=== PATIENT | male | born 1970 | race Caucasian/White ===

== ENCOUNTER 2022-11-10 07:11 | Outpatient (OUT) | payer OTHER, SELFPAY ==
[2022-11-10 07:42] LABS: Basophils Percent Auto 0.6 % (0.2-2.0); Eosinophils Absolute Auto 0.3 10^3/uL (0.0-0.7); Eosinophils Percent Auto 3.9 % (0.9-7.0); Hematocrit 41.4 % (42.0-54.0); Immature Granulocytes Abs Auto 0.02 10^3/uL (0.00-0.03); Immature Granulocytes Pct Auto 0.3 % (0.0-0.5); Lymphocytes Absolute Auto 1.7 10^3/uL (1.2-3.8); Mean Corpuscular HGB Conc 33.8 g/dL (29.9-35.2); Mean Corpuscular Hemoglobin 30.6 pg (25.9-34.0); Mean Corpuscular Volume 90.6 fL (80.0-94.0); Mean Platelet Volume 9.8 fL (9.5-13.5); Monocytes Absolute Auto 0.6 10^3/uL (0.3-0.8); Neutrophils Absolute Auto 4.1 10^3/uL (1.4-6.5); Neutrophils Percent Auto 61.2 % (43.0-75.0); Platelet Count 246 10^3/uL (150-450); Red Blood Count 4.57 10^6/uL (4.70-6.10); Red Cell Distribution Width 12.4 % (11.0-15.0); White Blood Count 6.6 10^3/uL (4.0-11.0)
[2022-11-10 09:06] LABS: Prostate Specific Antigen Scrn 0.44 ng/mL (<=4.00)
[2022-11-10 09:23] LABS: Alanine Aminotransferase 41 U/L (16-63); Albumin Globulin Ratio 1.1; Albumin Level 3.8 g/dL (3.4-5.0); Alkaline Phosphatase 60 U/L (46-116); Anion Gap 6.6; Aspartate Amino Transferase 20 U/L (15-37); BUN Creatinine Ratio 13.7; Bilirubin Total 0.4 mg/dL (0.2-1.0); Carbon Dioxide 29.7 mmol/L (21.0-32.0); Chloride 104 mmol/L (98-107); Chol HDL Ratio 2.3; Cholesterol 173 mg/dL (<=200); Estimated GFR (African America >60 (>=60); Estimated GFR (Non-African Ame >60 (>=60); Free T3 2.84 pg/mL (2.18-3.98); Globulin 3.6 g/dL; Glucose 108 mg/dL (74-106); HDL Cholesterol 74 mg/dL (40-60); Potassium 4.3 mmol/L (3.5-5.1); Sodium 136 mmol/L (136-145); Thyroid Stimulating Hormone 2.713 uIU/mL (0.358-3.740); Total Protein 7.4 g/dL (6.4-8.2); Triglycerides 159 mg/dL (<=150); VLDL CHOLESTEROL 31.8 mg/dL
[2022-11-10 09:31] LABS: Estimated Average Glucose 111 mg/dL; Glycohemoglobin A1C 5.5 % (4.5-6.2)
== END 2022-11-10 07:12 | disposition home or self-care (01) ==
LOC: LAB 07:15
PROVIDERS: PCP Family Medicine; Visit Provider Family Medicine
DX: Z00.00 Encounter for general adult medical examination without abnormal findings (principal); Z12.5 Encounter for screening for malignant neoplasm of prostate
CPT/HCPCS: 36415; 80053; 80061; 83036; 84436; 84443; 84481; 85025; G0103

== ENCOUNTER 2023-03-04 07:49 | Outpatient (RCR) | payer OTHER, SELFPAY | END 2023-05-03 09:00 | disposition home or self-care (01) | LOC: PT 07:49 | PROVIDERS: PCP Family Medicine; Visit Provider Orthopaedic Surgery Orthopaedic Trauma | DX: S83.242D Other tear of medial meniscus, current injury, left knee, subsequent encounter (principal); M23.92 Unspecified internal derangement of left knee; M25.562 Pain in left knee; R26.9 Unspecified abnormalities of gait and mobility; R26.89 Other abnormalities of gait and mobility | CPT/HCPCS: 97110; 97161 ==

== ENCOUNTER 2023-05-04 09:25 | Outpatient (RCR) | payer OTHER, SELFPAY | END 2023-05-05 12:42 | disposition home or self-care (01) | LOC: PT 09:25 | PROVIDERS: PCP Family Medicine; Visit Provider Orthopaedic Surgery Orthopaedic Trauma | DX: Z53.8 Procedure and treatment not carried out for other reasons (principal) ==

== ENCOUNTER 2023-06-04 07:05 | Outpatient (RCR) | payer OTHER, SELFPAY | END 2023-06-10 11:41 | disposition home or self-care (01) | LOC: PT 07:05 | PROVIDERS: PCP Family Medicine; Visit Provider Orthopaedic Surgery Orthopaedic Trauma | DX: S83.242D Other tear of medial meniscus, current injury, left knee, subsequent encounter (principal); M23.92 Unspecified internal derangement of left knee; M25.562 Pain in left knee; Z98.890 Other specified postprocedural states | CPT/HCPCS: 97110; 97161 ==

== ENCOUNTER 2024-01-05 08:55 | Outpatient (OUT) | payer OTHER, SELFPAY ==
--- OUTSIDE RECORDS SUMMARY | 2024-01-05 09:17 | XMS_ITS | CCD ---
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 Name Role Phone DR IGNACIO LAGUNAS Consulting Unavailable GET, DR JAY Admitting Unavailable GET, DR JAY Attending Unavailable GET, DR JAY Primary Care Unavailable GET, DR JAY Consulting Unavailable REINKANDI, DR KIEL Wing Consulting Unavailluz marina WAITE, DR JEANNE Nam Consulting Unavailable TORRES, KONSTANTIN Consulting Unavailable FAWWADSHAIKH Celine Consulting Unavailable FALVO, SUJATHA Consulting Unavailable GET, DR JAY Admitting Unavailable GET, DR JAY Attending Unavailable GET, DR JAY Consulting Unavailable GET, DR JAY Primary Care Unavailable GET, DR JAY Admitting Unavailable GET, DR JAY Attending Unavailable GET, DR JAY Consulting Unavailable GET, DR JAY Primary Care Unavailable Bruce Galvan Unavailable MD Mitsy Wells Primary Care Provider [phone] DO Bruce Galvan Attending Provider Montse Rosario Unavailable MD Misty Wells Primary Care Provider [phone] DO Bruce Galvan Attending Provider [phone] Bruce Galvan Admitting Unavailable Bruce Galvan Attending Unavailable Misty Wells Primary Care Unavailable Bruce Galvan Admitting Unavailable Bruce Galvan Attending Unavailable Misty Wells Primary Care Unavailable Bruce Galvan Admitting Unavailable Bruce Galvan Attending Unavailable Misty Wells Primary Care Unavailable Bruce Galvan Attending Unavailable Bruce Galvan Admitting Unavailable Misty Wells Primary Care Unavailable Asad CARBAJAL Attending Unavailable Aranza BASILIO Attending Unavailable Aranza BASILIO Attending Unavailable Asad CARBAJAL Attending Unavailable Medications Current Medications Medication Drug Class(es) Dates Sig (Normalized) Sig (Original) allopurinol 100 mg oral tablet (8 sources) Xanthine Oxidase Inhibitor Start: 05-13-2023 take 100 mg by mouth once daily in the morning Allopurinol Active 100 MG PO Every morning May 13, 2023 1:00am aspirin 325 mg oral tablet (8 sources) Platelet Aggregation Inhibitor, Nonsteroidal Anti-inflammatory Drug Start: 05-13-2023 take 325 mg by mouth once daily in the morning Aspirin Active 325 MG PO Every morning May 13, 2023 1:00am take 1 tablet by jennifer th every twenty-four hours Aspirin 81 81 MG 1 tablet Orally Once a day Active take 1 tablet by mouth once zhanna y Aspirin 81 81 MG 1 tablet Orally Once a day Active lisinopril 20 mg oral tablet (8 sources) Angiotensin Converting Enzyme Inhibitor Start: 05-13-2023 take 20 mg by mouth once daily in the morning Lisinopril Active 20 MG PO Every morning May 13, 2023 1:00am metoprolol tartrate 50 mg oral tablet (8 sources) beta-Adrenergic Umair Start: 05-13-2023 take 50 mg by mouth twice daily Metoprolol Tartrate Active 50 MG PO Twice daily May 13, 2023 1:00am At-Txp-Qropj-K1-Ly copen-Lutein (Centrum Silver Men) 033-95-191-300 mcg Tablet (3 sources) Start: 05-13-2023 take 1 tablet by mouth once daily Zr-Sic-Orevq-K1-L ycopen-Lutein (Centrum Silver Men) [phone] mcg Tablet Active 1 TAB PO Daily May 13, 2023 1:00am Start: 05-13-2023 take 1 tablet by jennifer th once daily Bx-Qaj-Szttm-Y9-Jpphuaw-Sunrfd (Centrum Silver Men) [phone] mcg Tablet Active 1 TAB PO Daily May 13, 2023 12:00am oxyCODONE hydrochloride 5 mg oral capsule (2 sources) Opioid Agonist Start: 05-21-2023 take 5 mg by mouth every four to six hours Oxycodone Active 5 MG PO EVERY 4-6 HOURS 20 7 May 21, 2023 simvastatin 20 mg oral tablet (8 sources) HMG-CoA Reductase Inhibitor Start: 05-13-2023 take 20 mg by mouth once daily in the morning Simvastatin Active 20 MG PO Every morning May 13, 2023 1:00am Completed/Discontinued Medications Medication Drug Class(es) Dates Sig (Normalized) Sig (Original) triamcinolone acetonide 40 mg/ml injectable suspension (4 sources) Corticosteroid Start: 03-02-2023 Kenalog-40 30 Feb, 2023 40 mg Problems Active Problems Problem Classification Problem Date Documented Date Episodic/Chronic Essential hypertension (1 source) Essential (primary) hypertension; Translations: [ESSENTIAL PRIMARY HYPERTENSION] Onset: 10-17-2021 Chronic Headache; including migraine (1 source) Migraine, unspecified, not intractable, without status migrainosus; Translations: [MIGRAINE UNS NOT INTRACT W/O SM] Onset: 10-17-2021 Chronic Joint disorders and dislocations; trauma-related (10 sources) Derangement of left knee; Translations: [Unspecified internal derangement of left knee] Chronic Joint disorders and dislocations; trauma-related (7 sources) Other tear of medial meniscus, current injury, left knee, subsequent encounter; Translations: [Tear of medial meniscus of knee] Episodic Other aftercare (1 source) Encounter for removal of sutures Episodic Residual codes; unclassified (5 sources) Other specified postprocedural states; Translations: [Other postprocedural status] Onset: 05-21-2023 Episodic Residual codes; unclassified (1 source) Postprocedural state finding; Translations: [Other specified postprocedural states] 06-29-2023 Episodic Substance-related disorders (1 source) Nicotine dependence, chewing tobacco, uncomplicated; Translations: [NICOTINE DEPEND CHEW TOBACCO UNCOMP] Onset: 10-17-2021 Chronic Unclassified (1 source) ALCOHOL ABUSE WITHDRAWAL UNSPCIFIED; Translations: [ALCOHOL ABUSE WITHDRAWAL UNSPCIFIED] Onset: 10-17-2021 Unclassified (3 sources) CONTACT W/AND (SUSP) EXPOS COVID-19; Translations: [CONTACT W/AND (SUSP) EXPOS COVID-19] Onset: 05-16-2021 Unclassified (1 source) Other tear of medial meniscus, current injury, left knee, initial encounter; Translations: [Other tear of medial meniscus, current injury, left knee, initial encounter] Onset: 05-21-2023 Unclassified (1 source) Encounter for preprocedural laboratory examination; Translations: [Encounter for preprocedural laboratory examination] Onset: 05-13-2023 Unclassified (1 source) Unspecified internal derangement of left knee; Translations: [Unspecified internal derangement of left knee] Onset: 02-26-2023 Unclassified (1 source) Pain in left knee; Translations: [Pain in left knee] Onset: 02-23-2023 Viral infection (4 sources) COVID-19; Translations: [COVID-19] Onset: 04-11-2021 Past or Other Problems Problem Classification Problem Date Documented Da te Episodic/Chronic Conditions associated with dizziness or vertigo (4 sources) Dizziness and giddiness; Translations: [Labyrinthitis, unspecified ear] Onset: 10-13-2021 Episodic E Codes: Unspecified (1 source) Presence of alcohol in blood, level not specified; Translations: [PRESENCE ALCOHOL BLOOD LVL NOT SPEC] Onset: 10-17-2021 Episodic Immunizations and screening for infectious disease (1 source) Encounter for immunization; Translations: [ENCOUNTER FOR IMMUNIZATION] Onset: 04-16-2021 Episodic Malaise and fatigue (1 source) Weakness; Translations: [WEAKNESS] Onset: 10-17-2021 Episodic Other aftercare (1 source) Other [place] (current) drug therapy; Translations: [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] Onset: 10-17-2021 Episodic Other non-traumatic joint disorders (5 sources) Pain in left knee; Translations: [Pain in left knee] Onset: 02-26-2023 Episodic Other upper respiratory infections (1 source) Acute sinusitis, unspecified; Translations: [ACUTE SINUSITIS UNSPECIFIED] Onset: 05-16-2021 Episodic Unclassified (1 source) CONTACT W/AND (SUSP) EXPOS COVID-19; Translations: [CONTACT W/AND (SUSP) EXPOS COVID-19] Onset: 04-09-2021 Results Test Name Value Interpretation Reference Range Facility Registrationon 08-18-2023 Registration [id number] 0#1.00TIFF [facility] Registration [id number] 3#1.00TIFF [facility] In office Testingon 08-17-19 24 In office Testing [id number] #1.00TIFF Normal [facility] Alanine aminotransferase [En zymatic activity/volume] in Serum or PlasmaOrdered By: Bruce Galvan on 05-13-2023 ALT [Catalytic activity/Vol] 35 U/L 7-52 [facility] Albumin [Mass/volume] in Ser um or Plasma by Bromocresol green (BCG) dye binding methoOrdered By: Bruce Galvan on 05-13-2023 Albumin BCG dye [Mass/Vol] 4.6 g/dL 3.5-5.7 [facility] Alkaline phosphatase [Enzyma tic activity/volume] in Serum or PlasmaOrdered By: Bruce Galvan on 05-13-2023 ALP [Catalytic activity/Vol] 61 U/L 34-104 [facility] Aspartate aminotransferase [ Enzymatic activity/volume] in Serum or PlasmaOrdered By: Bruce Galvan on 05-13-2023 AST [Catalytic activity/Vol] 20 U/L 13-39 [facility] Basophils Auto (Bld) [#/Vol] Ordered By: Bruce Galvan on 05-13-2023 Basophils (Bld) [#/Vol] 0.0 10*3/uL 0.0-0.2 [facility] Basophils/100 WBC Auto (Bld) Ordered By: Bruce Galvan on 05-13-2023 Basophils/100 WBC (Bld) 0.4 % . [facility] Bilirubin.total [Mass/volume ] in Serum or PlasmaOrdered By: Bruce Galvan on 05-13-2023 Bilirubin [Mass/Vol] 0.5 mg/dL 0.3-1.0 [facility] CMP with reflex to A1Con Albumin [Mass/Vol] 4.6 g/dL Normal 3.5-5.7 [facility] Comment on above: Performed By: #### C BC, CMP wRFX A1C #### [address] Albumin/Globulin [Mass ratio] 1.8 {ratio} Normal [facility] Comment on above: Performed By: #### C BC, CMP wRFX A1C #### [facility] [address] ALP [Catalytic activity/Vol] 61 U/L Normal 34-104 [facility] Comment on above: Result Comment: PERF ORMED BY: [place] [address] PATHOLOGIST FISHER SPEAR LARRY PIZANO M.D. Performed By: #### C BC, CMP wRFX A1C #### [facility] [address] ALT [Catalytic activity/Vol] 35 U/L Normal 7-52 [facility] Comment on above: Performed By: #### C BC, CMP wRFX A1C #### [address] Anion gap [Moles/Vol] 9.3 mmol/L Normal 6.0-15.0 [facility] Comment on above: Performed By: #### C BC, CMP wRFX A1C #### [address] AST [Catalytic activity/Vol] 20 U/L Normal 13-39 [facility] Comment on above: Performed By: #### C BC, CMP wRFX A1C #### [address] Bilirubin [Mass/Vol] 0.5 mg/dL Normal 0.3-1.0 [facility] Comment on above: Performed By: #### C BC, CMP wRFX A1C #### [place] [address] [place] Calcium [Mass/Vol] 9.7 mg/dL Normal 8.6-10.3 [facility] Comment on above: Performed By: #### C BC, CMP wRFX A1C #### [address] Chloride [Moles/Vol] 105 mmol/L Normal 98-107 [facility] Comment on above: Performed By: #### C BC, CMP wRFX A1C #### [address] [place] [address] [place] CO2 [Moles/Vol] 30.0 mmol/L Normal 21.0-31.0 [facility] Comment on above: Performed By: #### C BC, CMP wRFX A1C #### [facility] [address] [place] [address] [place] Creatinine [Mass/Vol] 1.07 mg/dL Normal 0.70-1.30 [facility] Comment on above: Performed By: #### C BC, CMP wRFX A1C #### [facility] [address] [place] [address] [place] GFR/1.73 sq M.predicted MDRD (S/P/Bld) [Vol rate/Area] mL/min/{1.73_m2} Normal [facility] Comment on above: Performed By: #### C BC, CMP wRFX A1C #### [facility] [address] [place] [address] [place] Globulin (S) [Mass/Vol] 2.5 g/dL Normal [facility] Comment on above: Performed By: #### C BC, CMP wRFX A1C #### [facility] [address] [place] [address] [place] Glucose [Mass/Vol] 97 mg/dL Normal 70-100 [facility] Comment on above: Performed By: #### C BC, CMP wRFX A1C #### [facility] [address] [place] [address] [place] Potassium [Moles/Vol] 4.3 mmol/L Normal 3.5-5.1 [facility] Comment on above: Performed By: #### C BC, CMP wRFX A1C #### [facility] [address] [place] [address] [place] Protein [Mass/Vol] 7.1 g/dL Normal 6.4-8.9 [facility] Comment on above: Performed By: #### C BC, CMP wRFX A1C #### [facility] [address] [place] [address] [place] Sodium [Moles/Vol] 140 mmol/L Normal 136-145 [facility] Comment on above: Performed By: #### C BC, CMP wRFX A1C #### [facility] [address] Urea nitrogen [Mass/Vol] 15 mg/dL Normal 7-25 [facility] Comment on above: Performed By: #### C BC, CMP wRFX A1C #### [facility] [address] [place] [address] [place] Calcium [Mass/volume] in Ser um or PlasmaOrdered By: Bruce Galvan on 05-13-2023 Calcium [Mass/Vol] 9.7 mg/dL 8.6-10.3 [facility] Carbon dioxide, total [Moles /volume] in Serum or PlasmaOrdered By: Bruce Galvan on 05-13-2023 CO2 [Moles/Vol] 30.0 mmol/L 21.0-31.0 [facility] Chloride [Moles/volume] in S sara or PlasmaOrdered By: Bruce Galvan on 05-13-2023 Chloride [Moles/Vol] 105 mmol/L 98-107 [facility] Complete Blood Count Auto Di ffon 05-13-2023 Basophils (Bld) [#/Vol] 0.0 10*3/uL Normal 0.0-0.2 [facility] Comment on above: Result Comment: PERF ORMED BY: [place] [address] PATHOLOGIST FISHER SPEAR LARRY PIZANO M.D. Performed By: #### C BC, CMP wRFX A1C #### [facility] [address] [place] [address] [place] Basophils/100 WBC (Bld) 0.4 % Normal . [facility] Comment on above: Performed By: #### C BC, CMP wRFX A1C #### [facility] [address] [place] [address] [place] Eosinophils (Bld) [#/Vol] 0.2 10*3/uL Normal 0.0-0.45 [facility] Comment on above: Performed By: #### C BC, CMP wRFX A1C #### [facility] [address] [place] [address] [place] Eosinophils/100 WBC (Bld) 3.7 % Normal . [facility] Comment on above: Performed By: #### C BC, CMP wRFX A1C #### [facility] [address] Erythrocyte distribution width (RBC) [Ratio] 13.2 % Normal 12.0-14.8 [facility] Comment on above: Performed By: #### C BC, CMP wRFX A1C #### [facility] [address] Hematocrit (Bld) [Volume fraction] 41.2 % Normal 38.8-50.0 [facility] Comment on above: Performed By: #### C BC, CMP wRFX A1C #### [facility] [address] Hemoglobin (Bld) [Mass/Vol] 14.1 g/dL Normal 13.0-17.0 [facility] Comment on above: Performed By: #### C BC, CMP wRFX A1C #### [facility] [address] [place] [address] [place] Lymphocytes (Bld) [#/Vol] 1.6 10*3/uL Normal 1.00-4.8 [facility] Comment on above: Performed By: #### C BC, CMP wRFX A1C #### [facility] [address] [place] [address] [place] Lymphocytes/100 WBC (Bld) 24.8 % Normal . [facility] Comment on above: Performed By: #### C BC, CMP wRFX A1C #### [facility] [address] [place] [address] [place] MCH (RBC) [Entitic mass] 31.1 pg Normal 27.5-35.2 [facility] Comment on above: Performed By: #### C BC, CMP wRFX A1C #### [facility] [address] MCV (RBC) [Entitic vol] 90.8 fL Normal 83.5-101 [facility] Comment on above: Performed By: #### C BC, CMP wRFX A1C #### [facility] [address] Mean Corpuscular HGB Conc 34.3 g/dL Normal 32.5-35.6 [facility] Comment on above: Performed By: #### C BC, CMP wRFX A1C #### [facility] [address] Monocytes (Bld) [#/Vol] 0.6 10*3/uL Normal 0.0-0.8 [facility] Comment on above: Performed By: #### C BC, CMP wRFX A1C #### [facility] [address] Monocytes/100 WBC (Bld) 9.1 % Normal . [facility] Comment on above: Performed By: #### C BC, CMP wRFX A1C #### [facility] [address] [place] [address] [place] Neutrophils (Bld) [#/Vol] 4.0 10*3/uL Normal 1.8-7.7 [facility] Comment on above: Performed By: #### C BC, CMP wRFX A1C #### [place] [address] [place] Neutrophils/100 WBC (Bld) 62.0 % Normal . [facility] Comment on above: Performed By: #### C BC, CMP wRFX A1C #### [place] [address] [place] NRBC% 0.1 /100{WBC} Normal 0-0.5 [facility] Comment on above: Performed By: #### C BC, CMP wRFX A1C #### [facility] [address] [place] [address] [place] Platelet mean volume (Bld) [Entitic vol] 8.7 fL Normal 6.6-10.1 [facility] Comment on above: Performed By: #### C BC, CMP wRFX A1C #### [facility] [address] [place] [address] [place] Platelets (Bld) [#/Vol] 266 10*3/uL Normal 150-450 [facility] Comment on above: Performed By: #### C BC, CMP wRFX A1C #### [facility] [address] RBC (Bld) [#/Vol] 4.54 10*6/uL Normal 3.90-5.60 [facility] Comment on above: Performed By: #### C BC, CMP wRFX A1C #### [facility] [address] [place] [id number] [facility] WBC (Bld) [#/Vol] 6.4 10*3/uL Normal 4.1-10.5 [facility] Comment on above: Performed By: #### C BC, CMP wRFX A1C #### [facility] [address] Creatinine [Mass/volume] in Serum or PlasmaOrdered By: Bruce Galvan on 05-13-2023 Creatinine [Mass/Vol] 1.07 mg/dL 0.70-1.30 [facility] ECG 12 lead ECGon 05-13-2023 ECG 12 lead ECG [facility] Main [facility] [address] [place] [address] Electrocardiograph Report Signed Patient: Johnathon Ludwig MR#: [id number] : 1970 Acct:[id number] Age/Sex: 52 / M ADM Date: 05/13/23 Loc: Room: Type: [facility] Attending Dr: Bruce Galvan DO Ordering Provider: Bruce Galvan DO Date of Service: 05/13/2302/24/1023 ECG/ECG 12 lead ECG: Pre op Copies to: Test Reason : Blood Pressure : / mmHG Vent. Rate : 076 BPM Atrial Rate : 076 BPM P-R Int : 144 ms QRS Dur : 094 ms QT Int : 390 ms P-R-T Axes : 047 039 023 degrees QTc Int : 438 ms Normal sinus rhythm Normal ECG No previous ECGs available Confirmed by Maurice Cardoza ([id number]) on 05/14/2023 8:53:06 AM Referred By: GET GALVAN Electronically Signed By:Maurice Cardoza Transcribed By: MUS Signed By Maurcie Cardoza MD 05/14/23 0853 Normal [facility] Eosinophils Auto (Bld) [#/Vo l]Ordered By: Bruce Galvan on 05-13-2023 Eosinophils (Bld) [#/Vol] 0.2 10*3/uL 0.0-0.45 [facility] Eosinophils/100 WBC Auto (Bl d)Ordered By: Bruce Galvan on 05-13-2023 Eosinophils/100 WBC (Bld) 3.7 % . [facility] Erythrocyte distribution wid th Auto (RBC) [Ratio]Ordered By: Bruce Galvan on 05-13-2023 Erythrocyte distribution width (RBC) [Ratio] 13.2 % 12.0-14.8 [facility] Globulin Calc (S) [Mass/Vol] Ordered By: Bruce Galvan on 05-13-2023 Globulin (S) [Mass/Vol] 2.5 g/dL [facility] Glucose [Mass/volume] in Ser um or PlasmaOrdered By: Bruce Galvan on 05-13-2023 Glucose [Mass/Vol] 97 mg/dL 70-100 [facility] Hematocrit Auto (Bld) [Volum e fraction]Ordered By: Bruce Galvan on 05-13-2023 Hematocrit (Bld) [Volume fraction] 41.2 % 38.8-50.0 [facility] Hemoglobin [Mass/volume] in BloodOrdered By: Bruce Galvan on 05-13-2023 Hemoglobin (Bld) [Mass/Vol] 14.1 g/dL 13.0-17.0 [facility] Leukocytes [#/volume] correc melanie for nucleated erythrocytes in Blood by Automated counOrdered By: Bruce Galvan on 05-13-2023 WBC corrected for nucl RBC Auto (Bld) [#/Vol] 6.4 10*3/uL 4.1-10.5 [facility] Lymphocytes Auto (Bld) [#/Vo l]Ordered By: Bruce Galvan on 05-13-2023 Lymphocytes (Bld) [#/Vol] 1.6 10*3/uL 1.00-4.8 [facility] Lymphocytes/100 WBC Auto (Bl d)Ordered By: Bruce Galvan on 05-13-2023 Lymphocytes/100 WBC (Bld) 24.8 % . [facility] MCH Auto (RBC) [Entitic mass ]Ordered By: Bruce Galvan on 05-13-2023 MCH (RBC) [Entitic mass] 31.1 pg 27.5-35.2 [facility] MCHC Auto (RBC) [Mass/Vol]Or dered By: Bruce Galvan on 05-13-2023 MCHC (RBC) [Mass/Vol] 34.3 g/dL 32.5-35.6 [facility] MCV Auto (RBC) [Entitic vol] Ordered By: Bruce Galvan on 05-13-2023 MCV (RBC) [Entitic vol] 90.8 fL 83.5-101 [facility] Monocytes Auto (Bld) [#/Vol] Ordered By: Bruce Galvan on 05-13-2023 Monocytes (Bld) [#/Vol] 0.6 10*3/uL 0.0-0.8 [facility] Monocytes/100 WBC Auto (Bld) Ordered By: Bruce Galvan on 05-13-2023 Monocytes/100 WBC (Bld) 9.1 % . [facility] Neutrophils Auto (Bld) [#/Vo l]Ordered By: Bruce Galvan on 05-13-2023 Neutrophils (Bld) [#/Vol] 4.0 10*3/uL 1.8-7.7 [facility] Neutrophils/100 WBC Auto (Bl d)Ordered By: Bruce Galvan on 05-13-2023 Neutrophils/100 WBC (Bld) 62.0 % . [facility] No Panel InformationOrdered By: Bruce Galvan on 05-13-2023 Estimated GFR (CKD-EPI) > 60.0 mL/Min [facility] Creatinine Clearance (Chem N/A [facility] Nucleated erythrocytes [Pres ence] in Blood by Automated countOrdered By: Bruce Galvan on 05-13-2023 Nucleated RBC Auto Ql (Bld) 0.1 /100{WBC} 0-0.5 [facility] Platelet mean volume Auto (B ld) [Entitic vol]Ordered By: Bruce Galvan on 05-13-2023 Platelet mean volume (Bld) [Entitic vol] 8.7 fL 6.6-10.1 [facility] Platelets Auto (Bld) [#/Vol] Ordered By: Bruce Galvan on 05-13-2023 Platelets (Bld) [#/Vol] 266 10*3/uL 150-450 [facility] Potassium [Moles/volume] in Serum or PlasmaOrdered By: Bruce Galvan on 05-13-2023 Potassium [Moles/Vol] 4.3 mmol/L 3.5-5.1 [facility] Protein [Mass/volume] in Ser um or PlasmaOrdered By: Bruce Galvan on 05-13-2023 Protein [Mass/Vol] 7.1 g/dL 6.4-8.9 [facility] RBC Auto (Bld) [#/Vol]Ordere d By: Bruce Galvan on 05-13-2023 RBC (Bld) [#/Vol] 4.54 10*6/uL 3.90-5.60 [facility] Serum or plasma albumin/glob ulin mass ratioOrdered By: Bruce Galvan on 05-13-2023 Albumin/Globulin [Mass ratio] 1.8 {ratio} [facility] Serum or plasma anion gap de terminationOrdered By: Bruce Galvan on 05-13-2023 Anion gap [Moles/Vol] 9.3 mmol/L 6.0-15.0 [facility] Sodium [Moles/volume] in Ser um or PlasmaOrdered By: Bruce Galvan on 05-13-2023 Sodium [Moles/Vol] 140 mmol/L 136-145 [facility] Urea nitrogen [Mass/volume] in Serum or PlasmaOrdered By: Bruce Galvan on 05-13-2023 Urea nitrogen [Mass/Vol] 15 mg/dL 7-25 [facility] WBC Auto (Bld) [#/Vol]Ordere d By: rBuce Galvan on 05-13-2023 WBC (Bld) [#/Vol] 6.4 10*3/uL 4.1-10.5 [facility] MR knee LT wo conon 02-27-20 MR knee LT wo con [facility] Main [facility] [address] [place] [address] MRI Report Signed Patient: Johnathon Ludwig MR#: [id number] : 1970 Acct:[id number] Age/Sex: 52 / M ADM Date: 02/26/23 Loc: MR Room: Type: [facility] CLI Attending Dr: Bruce Galvan DO Copies to: Bruce Galvan DO Ordering Provider: Bruce Galvan DO Date of Service: 02/26/23 MR/MR knee LT wo con: Internal derangement of left knee;Acute pain of left knee MRI of the LEFTKnee without contrast TECHNIQUE: Multiplanar T1 and T2-weighted imaging of the knee obtained without contrast HISTORY: Acute LEFT knee pain. Assessment for meniscal tear COMPARISON:Plain film imaging, 02/23/23 BONE MARROW: No infiltrative changes. BONE MARROW EDEMA: None FRACTURE: None BONE TUMOR: None BONY ALIGNMENT: Adequate DEGENERATION: No significant spurring or joint space narrowing. JOINT EFFUSION: No joint effusion MUSCLES: Unremarkable SOFT TISSUES: Unremarkable POPLITEAL CYST: None ANTERIOR CRUCIATE LIGAMENT: Intact POSTERIOR CRUCIATE LIGAMENT: Intact LATERAL COMPARTMENT: LATERAL MENISCUS: Intact. LATERAL ARTICULAR CARTILAGE: Intact. No osteochondral defect. No subcuticular bone marrow edema. PROXIMAL TIBIOFIBULAR JOINT: Intact POSTERIOR LATERAL COMPARTMENT: Intact lateral collateral ligament complex. Intact biceps femoris tendon. Intact popliteus tendon. COMMON PERONEAL NERVE: Intact MEDIAL COMPARTMENT: MEDIAL MENISCUS: There is a longitudinal linear increased T1 and T2 signal intensity of the posterior horn and body of the medial meniscus. Suspected longitudinal tear involving the posterior horn and body of the medial meniscus. MEDIAL ARTICULAR SURFACE: No chondromalacia. No subarticular bone marrow edema. POSTERIOR MEDIAL COMPARTMENT: Medial collateral ligament complex intact. The semimembranosus tendon intact. No ramp lesion of the posterior horn of medial meniscus present. PATELLOFEMORAL COMPARTMENT: PATELLOFEMORAL ARTICULAR CARTILAGE: Intact ANTERIOR LIGAMENTS: Patellar ligament and quadriceps tendon are intact. MR/MR knee LT wo con IMPRESSION: Findings suggesting longitudinal tear of the body and posterior horn of the medial meniscus. Moderate joint effusion. Intact ACL and lateral meniscus. Impression dictated by: Asad Reynolds M.D.02/26/2023 11:43 AM Dictation Location: [facility] Transcribed By: ANUJ 02/26/23 1143 Dictated By: Asad Reynolds DO 02/26/23 1120 Signed By: 02/26/23 1143 [facility] XR knee LT 3V - NOT FOR ER U Armen 02-23-2023 XR knee LT 3V - NOT FOR ER USE [facility] [place] [address] XRay Report Signed Patient: Johnathon Ludwig MR#: [id number] : 1970 Acct:[id number] Age/Sex: 52 / M ADM Date: 02/23/23 Loc: [facility] Room: Type: [facility] Attending Dr: Bruce Galvan DO Copies to: Bruce Galvan DO Ordering Provider: Bruce Galvan DO Date of Service: 02/23/23 XR/XR knee LT 3V - NOT FOR ER USE: M25.562 3 views LEFT knee plain film COMPARISON: None HISTORY: LEFT knee pain for 2 days. ACUTE FINDINGS: None DEGENERATIVE CHANGE: Unremarkable SOFT TISSUE FINDINGS: Unremarkable JOINT EFFUSION: None POSTOP CHANGES: None BONE MINERALIZATION: Adequate XR/XR knee LT 3V - NOT FOR ER USE IMPRESSION: No acute findings Impression dictated by: Asad Reynolds M.D.02/23/2023 3:07 PM Dictation Location: [facility] Transcribed By: ANUJ 02/23/23 1507 Dictated By: Asad Reynolds DO 02/23/23 1506 Signed By: 02/23/23 1507 [facility] In office Testingon 11-06-19 In office Testing [id number] 1#1.00CD:127 [facility] Cons[place] 10-31-2022 Consent [id number] 7#1.00CD:127 [facility] Registrationon 10-31-2022 Registration [id number] 1#1.00CD:127 Normal [facility] CBC AUTO DIFFon 10-14-2021 BASO # 0.0 103/ul Normal 0.0-0.1 [facility] Comment on above: Performed By: #### C BC #### [facility] [address] [address] [address] Gloria Coffman Basophils/100 WBC (Bld) 0.1 % Critically low 0.2-2.0 [facility] Comment on above: Performed By: #### C BC #### [facility] [address] [place] [address] Dr. Gloria Coffman EO # 0.0 103/ul Normal 0.0-0.7 [facility] Comment on above: Performed By: #### C BC #### [facility] [address] [place] [address] Dr. Gloria Coffman Eosinophils/100 WBC (Bld) 0.0 % Critically low 0.9-7.0 [facility] Comment on above: Performed By: #### C BC #### [facility] [address] [place] [address] Dr. Gloria Coffman Erythrocyte distribution width (RBC) [Ratio] 13.1 % Normal 11.0-15.0 [facility] Comment on above: Performed By: #### C BC #### [facility] [address] [place] [address] Dr. Gloria Coffman Hematocrit (Bld) [Volume fraction] 41.4 % Critically low 42.0-54.0 [facility] Comment on above: Performed By: #### C BC #### [facility] [address] [place] [address] Dr. Gloria Coffman Hemoglobin (Bld) [Mass/Vol] 13.6 g/dL Critically low 14.0-18.0 [facility] Comment on above: Performed By: #### C BC #### [facility] [address] [place] [address] Dr. Gloria Coffman IG # 0.02 10e3/ul Normal 0.00-0.03 [facility] Comment on above: Performed By: #### C BC #### [facility] [address] [place] [address] Dr. Gloria Coffman IG % 0.2 % Normal 0.0-0.5 [facility] Comment on above: Performed By: #### C BC #### [facility] [address] [address] [address] Gloria Coffman LYMPH # 0.8 103/ul Critically low 1.2-3.8 [facility] Comment on above: Performed By: #### C BC #### [facility] [address] [place] [address] Dr. Gloria Coffman Lymphocytes/100 WBC (Bld) 7.3 % Critically low 20.5-60.0 [facility] Comment on above: Performed By: #### C BC #### [facility] [address] [place] [address] Dr. Gloria Coffman MANUAL DIFF REQ NO Normal [facility] Comment on above: Performed By: #### C BC #### [facility] [address] [place] [address] Dr. Gloria Coffman MCH (RBC) [Entitic mass] 30.4 pg Normal 25.9-34.0 [facility] Comment on above: Performed By: #### C BC #### [facility] [address] [place] [address] Dr. Gloria Coffman MCHC (RBC) [Mass/Vol] 32.9 g/dL Normal 29.9-35.2 [facility] Comment on above: Performed By: #### C BC #### [facility] [address] [place] [address] Dr. Gloria Coffman MCV (RBC) [Entitic vol] 92.6 fL Normal 80.0-94.0 [facility] Comment on above: Performed By: #### C BC #### [facility] [address] [place] [address] Dr. Gloria Coffman MONO # 0.4 103/ul Normal 0.3-0.8 [facility] Comment on above: Performed By: #### C BC #### [facility] [address] [address] [address] Gloria Coffman Monocytes/100 WBC (Bld) 4.0 % Normal 1.7-12.0 [facility] Comment on above: Performed By: #### C BC #### [facility] [address] [address] [address] Gloria Coffman NEUT # 9.3 103/ul Critically high 1.4-6.5 [facility] Comment on above: Performed By: #### C BC #### [facility] [address] [address] [address] Gloria Coffman Neutrophils/100 WBC (Bld) 88.4 % Critically high 43.0-75.0 [facility] Comment on above: Performed By: #### C BC #### [facility] [address] [address] [address] Gloria Coffman Platelet mean volume (Bld) [Entitic vol] 12.4 fL Normal 9.5-13.5 [facility] Comment on above: Performed By: #### C BC #### [facility] [address] [address] [address] Gloria Coffman PLT 133 103/ul Critically low 150-450 [facility] Comment on above: Performed By: #### C BC #### [facility] [address] [address] [address] Gloria Coffman RBC 4.47 106/ul Critically low 4.70-6.10 [facility] Comment on above: Performed By: #### C BC #### [facility] [address] [address] [address] Gloria Coffman WBC 10.5 103/ul Normal 4.0-11.0 [facility] Comment on above: Performed By: #### C BC #### [facility] [address] [address] [address] Gloria Coffman CTA NECK WO W CONon 10-15-19 22 CTA NECK WO W CON EXAMINATION: CTA NECK WO W CON HISTORY: dizziness COMPARISON: No relevant comparison available. TECHNIQUE: Multiplanar CT imaging without and with IV contrast. Multi-planar/3-D imaging to optimize visualization of vascular anatomy. Percent stenosis is based on NASCET criteria. Dose reduction techniques were achieved by using automated exposure control and/or adjustment of mA and/or kV according to patient size and/or use of iterative reconstruction technique. FINDINGS: RIGHT INTERNAL CAROTID: No hemodynamically significant stenosis or dissection. EXTERNAL CAROTID: No hemodynamically significant stenosis or dissection. COMMON CAROTID: No hemodynamically significant stenosis or dissection. VERTEBRAL: No hemodynamically significant stenosis or dissection. LEFT INTERNAL CAROTID: No hemodynamically significant stenosis or dissection. EXTERNAL CAROTID: No hemodynamically significant stenosis or dissection. COMMON CAROTID: No hemodynamically significant stenosis or dissection. VERTEBRAL: No hemodynamically significant stenosis or dissection. OTHER: C3-C4 left facet joint marked degenerative changes. The visualized soft tissues of the neck are also unremarkable. IMPRESSION: 1. Normal CT angiography of the neck. No suspicious findings. 2. Marked degenerative changes of C3-C4 left facet joint. Electronically authenticated by: JEANNE WAITE Date: 2021-10-14 09:38 Normal [facility] ECHOCARDIO M/2D COMPLETEon 0 10-14-2021 ECHOCARDIO M/2D COMPLETE Patient: JOHNATHON VIRGEN Exam Date: 10/14/2021 : 1970 Gender:M Ordering : DR MISTY WELLS . Admission #: [id number] Family : Order #: [id number] CLICK HERE TO VIEW EXAM ECHOCARDIOGRAM REPORT PROCEDURE: CARDIO PULMONARY ECHOCARDIO M/2D COMP INDICATIONS: Vertigo and atexia COMPARISON: None. DESCRIPTION: COMPLETE ECHOCARDIOGRAM Real-time transthoracic echocardiography with 2D, M-mode, spectral and color flow Doppler performed. QUALITY: Technical quality was good. LEFT VENTRICLE: Normal chamber size. Borderline left ventricular hypertrophy. Global left ventricular systolic function is normal. LV EF: Calculated left ventricular ejection fraction is 70%. DIASTOLIC: Normal diastolic function. ATRIAL SEPTUM: LEFT ATRIUM: Normal chamber size. RIGHT ATRIUM: Normal chamber size. RIGHT VENTRICLE: Normal chamber size. Normal right ventricular systolic function. TRICUSPID VALVE: Normal mobility and thickness. No stenosis with trivial regurgitation. No evidence of pulmonary hypertension. RVSP 24mmHg. MITRAL VALVE: Normal mobility and thickness. No mitral valve prolapse. No evidence of mitral valve stenosis. There is no mitral annular calcification. Trivial mitral regurgitation. AORTIC VALVE: Normal trileaflet appearance. No visible sclerosis. Normal leaflet mobility. No evidence of aortic valve stenosis. No aortic regurgitation. AORTIC ROOT: Normal diameter and appearance. PULMONIC VALVE: Normal thickness and mobility. No stenosis. Trivial regurgitation. PERICARDIUM: No evidence of pericardial effusion. IVC: Collapses with inspirations. Normal size. PLEURA: CONCLUSION: 1. Normal ventricular function. LVEF is 70%. 2. No significant valvular dysfunction. 3. No pericardial effusion. 4. Normal right-sided pressures. Adult Echocardiography Procedure Report Left Ventricle LVEDD (3.7 - 5.6 cm): 4.80 cm LVESD (2.2 - 4.0 cm): 3.05 cm LVIVS thickness (0.6 - 1.2 cm): 1.12 cm LVPW thickness (0.5 - 1.0 cm): 1.09 cm e': 11.40 cm/s E - e': 7.70 LVOT Area (cm2): 4.52 cm2 LVOT Diameter 2.40 cm Left Ventricular Ejection Fraction: 70 % Left Atrium LA Volume Index (2D A2C): 27.50 ml/m2 Left Atrium Systolic Dimension: 3.70 cm Left Atrium Systolic Area(A2C): 19.30 cm2 Left Atrium Systolic Area(A4C): 16.90 cm2 Left Atrium Systolic Volume(A2C): 39861 mm3 Left Atrium Systolic Volume(A4C): 37011 mm3 Mitral Valve MV E to A Ratio: 1.20 Deceleration Mower: 4200 mm/s2 Mitral Valve A-Wave Peak Velocity: 71.10 cm/s Mitral Valve E-Wave Peak Velocity: 87.90 cm/s Right Ventricle RV Internal Diastolic Dimension: 3.62 cm Aorta AO Root Diam: 3.70 cm Aortic Valve AoV Area (Peak Ferdinand): 3.90 cm2 Aortic Valve Cusp Separation: 2.30 cm Peak Velocity(Antegrade Flow): 110.00 cm/s Peak Gradient(Antegrade Flow): 5 mm[Hg] Tricuspid Valve Peak Velocity (Regurgitant Flow): 204.00 cm/s Pulmonic Valve Peak Velocity: 119.00 cm/s Peak Gradient: 6 mm[Hg] Right Atrium Dictated by: Maurice Ziegler M.D. on 10/15/2021 at 18:03 Approved by: Maurice Ziegler M.D. on 10/15/2021 at 18:05 Normal [facility] MRI BRAIN WO CONon 2 MRI BRAIN WO CON EXAMINATION: MRI BRAIN WO CON, 10/12/2021 11:18 PM EDT HISTORY: Vertigo ; acute headache with dizziness and nausea COMPARISON: None. TECHNIQUE: MRI of the brain was performed without IV contrast. FINDINGS: CEREBRUM: No edema, hemorrhage, mass, acute infarction, or inappropriate atrophy. CEREBELLUM: No edema, hemorrhage, mass, acute infarction, or inappropriate atrophy. BRAINSTEM: No edema, hemorrhage, mass, acute infarction, or inappropriate atrophy. CSF SPACES: Ventricles, cisterns, and sulci are appropriate for age. No hydrocephalus, subarachnoid hemorrhage, or mass. SKULL: No mass or other significant visible lesion. SINUSES: Limited views demonstrate no significant mucosal thickening or fluid. ORBITS: Limited views are unremarkable. OTHER: Negative. IMPRESSION: 1. Normal MRI of the brain. No abnormal or suspicious findings to account for patient's symptoms. Electronically authenticated by: JEANNE WAITE Date: 2021-10-14 12:05 Normal [facility] PROF 14(COMP METB)on 022 Albumin [Mass/Vol] 3.9 g/dL Normal 3.4-5.0 [facility] Comment on above: Performed By: #### C MP #### [facility] [address] [place] [address] Dr. Gloria Coffman Albumin/Globulin [Mass ratio] 1.1 {ratio} Normal [facility] Comment on above: Performed By: #### C MP #### [facility] [address] [place] [address] Dr. Gloria Coffman ALP [Catalytic activity/Vol] 54 U/L Normal 46-116 [facility] Comment on above: Performed By: #### C MP #### [facility] [address] [place] [address] Dr. Gloria Coffman ALT [Catalytic activity/Vol] 29 U/L Normal 16-63 [facility] Comment on above: Performed By: #### C MP #### [facility] [address] [place] [address] Dr. Gloria Coffman Anion gap [Moles/Vol] 14.1 mmol/L Normal [facility] Comment on above: Performed By: #### C MP #### [facility] [address] [place] [address] Dr. Gloria Coffman AST [Catalytic activity/Vol] 7 U/L Critically low 15-37 [facility] Comment on above: Performed By: #### C MP #### [facility] [address] [address] [address] Gloria Coffman Bilirubin [Mass/Vol] 0.5 mg/dL Normal 0.2-1.0 [facility] Comment on above: Performed By: #### C MP #### [facility] [address] [place] [address] Dr. Gloria Coffman Calcium [Mass/Vol] 8.8 mg/dL Normal 8.5-10.1 [facility] Comment on above: Performed By: #### C MP #### [facility] [address] [place] [address] Dr. Gloria Coffman Chloride [Moles/Vol] 106 mmol/L Normal 98-107 [facility] Comment on above: Performed By: #### C MP #### [facility] [address] [place] [address] Dr. Gloria Coffman CO2 [Moles/Vol] 24.8 mmol/L Normal 21.0-32.0 [facility] Comment on above: Performed By: #### C MP #### [facility] [address] [place] [address] Dr. Gloria Coffman Creatinine [Mass/Vol] 0.88 mg/dL Normal 0.70-1.30 [facility] Comment on above: Performed By: #### C MP #### [facility] [address] [place] [address] Dr. Gloria Coffman EGFR-AF UKRAINIAN >60 Normal >=60 [facility] Comment on above: Performed By: #### C MP #### [facility] [address] [place] [address] Dr. Gloria Coffman EGFR-NON AF UKRAINIAN >60 Normal >=60 [facility] Comment on above: Performed By: #### C MP #### [facility] [address] [address] [address] Gloria Coffman Globulin (S) [Mass/Vol] 3.5 g/dL Normal [facility] Comment on above: Performed By: #### C MP #### [facility] [address] [address] [address] Gloria Coffman Glucose [Mass/Vol] 156 mg/dL Critically high 74-106 [facility] Comment on above: Performed By: #### C MP #### [facility] [address] [address] [address] Gloria Coffman Potassium [Moles/Vol] 3.9 mmol/L Normal 3.5-5.1 [facility] Comment on above: Performed By: #### C MP #### [facility] [address] [place] [address] Dr. Gloria Coffman Protein [Mass/Vol] 7.4 g/dL Normal 6.4-8.2 [facility] Comment on above: Performed By: #### C MP #### [facility] [address] [address] [address] Gloria Coffman Sodium [Moles/Vol] 141 mmol/L Normal 136-145 [facility] Comment on above: Performed By: #### C MP #### [facility] [address] [place] [address] Dr. Gloria Coffman Urea nitrogen [Mass/Vol] 15.0 mg/dL Normal 7.0-18.0 [facility] Comment on above: Performed By: #### C MP #### [facility] [address] [address] [address] Gloria Coffman Urea nitrogen/Creatinine [Mass ratio] 17.0 mg/mg Normal [facility] Comment on above: Performed By: #### C MP #### [facility] [address] [address] [address] Gloria Coffman CBC W MANUAL DIFFon 10-14-19 22 ATYPICAL LYMPH # Normal [facility] Comment on above: Performed By: #### C BCMAN #### [facility] [address] [place] [address] Dr. Gloria Coffman ATYPICAL LYMPH % Normal [facility] Comment on above: Performed By: #### C BCMAN #### [facility] [address] [place] [address] Dr. Gloria Coffman BAND # Normal 0.0-0.3 [facility] Comment on above: Performed By: #### C BCMAN #### [facility] [address] [place] [address] Dr. Gloria Coffman BAND % Normal 0-5 [facility] Comment on above: Performed By: #### C BCOCTAVIO #### [facility] [address] [place] [address] Dr. Gloria Coffman BASOM # 0.18 103/ul Critically high 0.00-0.10 [facility] Comment on above: Performed By: #### C EILEEN #### [facility] [address] [place] [address] Dr. Gloria Coffman BASOM % 2.0 % Normal 0.2-2.0 [facility] Comment on above: Performed By: #### C EILEEN #### [facility] [address] [place] [address] Dr. Gloria Coffman BLAST # Normal [facility] Comment on above: Performed By: #### C EILEEN #### [facility] [address] [place] [address] Dr. Gloria Coffman BLAST % Normal [facility] Comment on above: Performed By: #### C EILEEN #### [facility] [address] [place] [address] Dr. Gloria Coffman CORRECTED WBC Normal 4.0-11.0 [facility] Comment on above: Performed By: #### C EILEEN #### [facility] [address] [place] [address] Dr. Gloria Coffman EOS # 0.00 103/ul Normal 0.00-0.70 [facility] Comment on above: Performed By: #### C EILEEN #### [facility] [address] [place] [address] Dr. Gloria Coffman EOS% 0.0 % Critically low 0.9-7.0 [facility] Comment on above: Performed By: #### Dorinda ARELLANO #### [facility] [address] [place] [address] Dr. Gloria Coffman HCT 41.8 % Critically low 42.0-54.0 [facility] Comment on above: Performed By: #### C EILEEN #### [facility] [address] [address] [address] Gloria Coffman HGB 13.6 g/dl Critically low 14.0-18.0 [facility] Comment on above: Performed By: #### Dorinda ARELLANO #### [facility] [address] [place] [address] Dr. Gloria Coffman LYMPHM # 0.27 103/ul Critically low 1.20-3.80 [facility] Comment on above: Performed By: #### Dorinda ARELLANO #### [facility] [address] [place] [address] Dr. Gloria Coffman LYMPHM% 3.0 % Critically low 20.5-60.0 [facility] Comment on above: Performed By: #### Dorinda ARELLANO #### [facility] [address] [place] [address] Dr. Gloria Coffman MCH 30.0 pg Normal 25.9-34.0 [facility] Comment on above: Performed By: #### Dorinda ARELLANO #### [facility] [address] [place] [address] Dr. Gloria Coffman MCHC 32.5 g/dl Normal 29.9-35.2 [facility] Comment on above: Performed By: #### C EILEEN #### [facility] [address] [place] [address] Dr. Gloria Coffman MCV 92.3 fL Normal 80.0-94.0 [facility] Comment on above: Performed By: #### C EILEEN #### [facility] [address] [place] [address] Dr. Gloria Coffman METAMYELOCYTE # Normal [facility] Comment on above: Performed By: #### C EILEEN #### [facility] [address] [place] [address] Dr. Gloria Coffman METAMYELOCYTE % Normal [facility] Comment on above: Performed By: #### C EILEEN #### [facility] [address] [place] [address] Dr. Gloria Coffman MONOM# 0.00 103/ul Critically low 0.30-0.80 [facility] Comment on above: Performed By: #### C EILEEN #### [facility] [address] [place] [address] Dr. Gloria Coffman MONOM% 0.0 % Critically low 1.7-12.0 [facility] Comment on above: Performed By: #### C EILEEN #### [facility] [address] [place] [address] Dr. Gloria Coffman MPV 10.5 fL Normal 9.5-13.5 [facility] Comment on above: Performed By: #### C EILEEN #### [facility] [address] [place] [address] Dr. Gloria Coffman MYELOCYTE # Normal [facility] Comment on above: Performed By: #### C EILEEN #### [facility] [address] [place] [address] Dr. Gloria Coffman MYELOCYTE % Normal [facility] Comment on above: Performed By: #### C EILEEN #### [facility] [address] [place] [address] Dr. Gloria Coffman NRBC Normal [facility] Comment on above: Performed By: #### C EILEEN #### [facility] [address] [place] [address] Dr. Gloria Coffman PLT 245 103/ul Normal 150-450 [facility] Comment on above: Performed By: #### C EILEEN #### [facility] [address] [place] [address] Dr. Gloria Coffman RBC 4.53 106/ul Critically low 4.70-6.10 [facility] Comment on above: Performed By: #### C EILEEN #### [facility] [address] [address] [address] Gloria Coffman RDW 13.2 % Normal 11.0-15.0 [facility] Comment on above: Performed By: #### C EILEEN #### [facility] [address] [place], [place] [address] Dr. Gloria Coffman SEG # 8.46 103/ul Critically high 1.40-6.50 [facility] Comment on above: Performed By: #### C EILEEN #### [facility] [address] [id number] Gloria Coffman SEG % 95.0 % Critically high 43.0-75.0 [facility] Comment on above: Performed By: #### C EILEEN #### [facility] [address] [address] [address] Gloria Coffman WBC 8.9 103/ul Normal 4.0-11.0 [facility] Comment on above: Performed By: #### Dorinda ARELLANO #### [facility] [id number] Gloria Coffman Covid-19 PCR ([facility])on 10-02 SARS-CoV-2 (COVID-19) RNA LANE+probe Ql (Unsp spec) Not detected Normal NOT DETECTED [facility] Comment on above: Result Comment: When diagnostic testing is negative, the possibility of a false negative should be considered in the context of a patient's recent exposures and the presence of clinical signs and symptoms consistent with SARS-CoV-2. This test is not yet approved or cleared by the [place] FDA. When there are no FDA-approved or cleared tests available, and other criteria are met, FDA can make tests available under an emergency access mechanism called an Emergency Use Authorization (EUA). The EUA for this test is supported by the Bus Analyst of Health and Human Service's declaration that circumstances exist to justify the emergency use of in vitro diagnostics for the detection and/or diagnosis of the virus that causes COVID-19. This EUA will remain in effect for the duration of the COVID-19 declaration justifying emergency of IVDs, unless it is terminated or revoked by the FDA (after which the test may no longer be used). Performed By: #### C VDTBH #### [facility] [address] [address] [address] Gloria Coffman ETHANOL (BLD ALC)on 10-14-19 22 ALC NOTE NOTE: 80 mg/dl is the legal limit for a blood alcohol level Normal [facility] Comment on above: Performed By: #### E TH #### [facility] [address] [address] [address] Gloria Coffman Ethanol [Mass/Vol] mg/dL Normal [facility] Comment on above: Performed By: #### E TH #### [facility] [address] [address] [address] Gloria Coffman PROF 14(COMP METB)on 022 Albumin [Mass/Vol] 4.0 g/dL Normal 3.4-5.0 [facility] Comment on above: Performed By: #### C MP ####[facility] [address] [address]DrJenna Coffman Albumin/Globulin [Mass ratio] 1.1 {ratio} Normal [facility] Comment on above: Performed By: #### C MP ####[facility] [address] [address]Dr. Gloria Coffman ALP [Catalytic activity/Vol] 60 U/L Normal 46-116 [facility] Comment on above: Performed By: #### C MP ####[facility] [address] [address]Dr. Gloria Coffman ALT [Catalytic activity/Vol] 35 U/L Normal 16-63 [facility] Comment on above: Performed By: #### C MP ####[facility] [address] [id number] Coffman Anion gap [Moles/Vol] 14.6 mmol/L Normal [facility] Comment on above: Performed By: #### C MP ####[facility] [address] [address]DrJenna Coffman AST [Catalytic activity/Vol] 11 U/L Critically low 15-[address] [facility] Comment on above: Performed By: #### C MP ####[facility] [address] [address]Dr. Gloria Coffman Bilirubin [Mass/Vol] 0.6 mg/dL Normal 0.2-1.0 [facility] Comment on above: Performed By: #### C MP ####[facility] [address] [address]Dr. Gloria Coffman Calcium [Mass/Vol] 9.2 mg/dL Normal 8.5-10.1 [facility] Comment on above: Performed By: #### C MP ####[facility] [address] [place], [place] [address]Dr. Gloria Coffman Chloride [Moles/Vol] 104 mmol/L Normal 98-107 [facility] Comment on above: Performed By: #### C MP ####[facility] [address] [place], [place] [address]Dr. Gloria Coffman CO2 [Moles/Vol] 27.1 mmol/L Normal 21.0-32.0 [facility] Comment on above: Performed By: #### C MP ####[facility] [address] [place], [place] [address]Dr. Gloria Coffman Creatinine [Mass/Vol] 0.98 mg/dL Normal 0.70-1.30 [facility] Comment on above: Performed By: #### C MP ####[facility] [address] [place], [place] [address]Dr. Gloria Coffman EGFR-AF UKRAINIAN >60 Normal >=60 [facility] Comment on above: Performed By: #### C MP ####[facility] [address] [place], [place] [address]Dr. Gloria Coffman EGFR-NON AF UKRAINIAN >60 Normal >=60 [facility] Comment on above: Performed By: #### C MP ####[facility] [address] [place], [place] [address]Dr. Pilichristopher Augustus Globulin (S) [Mass/Vol] 3.6 g/dL Normal [facility] Comment on above: Performed By: #### C MP ####[facility] [address] [address]Dr. Gloria Coffman Glucose [Mass/Vol] 151 mg/dL Critically high 74-106 [facility] Comment on above: Performed By: #### C MP ####[facility] [address] [address]Dr. Pilichristopher Coffman Potassium [Moles/Vol] 4.7 mmol/L Normal 3.5-5.1 [facility] Comment on above: Performed By: #### C MP ####[facility] [address] [address]Dr. Gloria Coffman Protein [Mass/Vol] 7.6 g/dL Normal 6.4-8.2 [facility] Comment on above: Performed By: #### C MP ####[facility] [address] [place], [place] [address]Dr. Gloria Coffman Sodium [Moles/Vol] 141 mmol/L Normal 136-145 [facility] Comment on above: Performed By: #### C MP ####[facility] [address] [place], [place] [address]Dr. Gloria Augustus Urea nitrogen [Mass/Vol] 16.0 mg/dL Normal 7.0-18.0 [facility] Comment on above: Performed By: #### C MP ####[facility] [address] [place], [place] [address]Dr. Gloria Coffman Urea nitrogen/Creatinine [Mass ratio] 16.3 mg/mg Normal [facility] Comment on above: Performed By: #### C MP ####[facility] [address] [place], [place] [address]Dr. Gloria Coffman CBC AUTO DIFFon 10-12-2021 BASO # 0.0 103/ul Normal 0.0-0.1 [facility] Comment on above: Performed By: #### C BC ####[facility] [address] [place], [place] [address]Dr. Gloria Coffman Basophils/100 WBC (Bld) 0.3 % Normal 0.2-2.0 [facility] Comment on above: Performed By: #### C BC ####[facility] [address] [address]Dr. Gloria Coffman EO # 0.1 103/ul Normal 0.0-0.7 [facility] Comment on above: Performed By: #### C BC ####[facility] [address] [place], [place] [address]DrJenna Pilichristopher Coffman Eosinophils/100 WBC (Bld) 1.5 % Normal 0.9-7.0 [facility] Comment on above: Performed By: #### C BC ####[facility] [address] [place], [place] [address]Dr. Pilichristopher Coffman Erythrocyte distribution width (RBC) [Ratio] 13.2 % Normal 11.0-15.0 [facility] Comment on above: Performed By: #### C BC ####[facility] [address] [place], [place] [address]Dr. Pilichristopher Coffman Hematocrit (Bld) [Volume fraction] 41.5 % Critically low 42.0-54.0 [facility] Comment on above: Performed By: #### C BC ####[facility] [address] [place], [place] [address]Dr. Gloria Coffman Hemoglobin (Bld) [Mass/Vol] 13.8 g/dL Critically low 14.0-18.0 [facility] Comment on above: Performed By: #### C BC ####[facility] [address] [place], [place] [address]Dr. Pilichristopher Coffman IG # 0.03 10e3/ul Normal 0.00-0.03 [facility] Comment on above: Performed By: #### C BC ####[facility] [address] [place], [place] [address]Dr. Pilichristopher Coffman IG % 0.3 % Normal 0.0-0.5 [facility] Comment on above: Performed By: #### C BC ####[facility] [address] [place], [place] [address]DrJenna Coffman LYMPH # 1.2 103/ul Normal 1.2-3.[address] [facility] Comment on above: Performed By: #### C BC ####[facility] [address] [id number]. Pilichristopher Coffman Lymphocytes/100 WBC (Bld) 12.3 % Critically low 20.5-60.0 [facility] Comment on above: Performed By: #### C BC ####[facility] [address] [address]DrJenna Coffman MANUAL DIFF REQ NO Normal [facility] Comment on above: Performed By: #### C BC ####[facility] [address] [address]Dr. Gloria Coffman MCH (RBC) [Entitic mass] 30.1 pg Normal 25.9-34.0 [facility] Comment on above: Performed By: #### C BC ####[facility] [address] [address]Dr. Gloria Coffman MCHC (RBC) [Mass/Vol] 33.3 g/dL Normal 29.9-35.2 [facility] Comment on above: Performed By: #### C BC ####[facility] [address] [id number] Coffman MCV (RBC) [Entitic vol] 90.6 fL Normal 80.0-94.0 [facility] Comment on above: Performed By: #### C BC ####[facility] [address] [address]DrJenna Coffman MONO # 0.7 103/ul Normal 0.3-0.8 [facility] Comment on above: Performed By: #### C BC ####[facility] [address] [address]DrJenna Coffman Monocytes/100 WBC (Bld) 7.5 % Normal 1.7-12.0 [facility] Comment on above: Performed By: #### C BC ####[facility] [address] [id number] Coffman NEUT # 7.5 103/ul Critically high 1.4-6.5 [facility] Comment on above: Performed By: #### C BC ####[facility] [address] [address]Dr. Gloria Coffman Neutrophils/100 WBC (Bld) 78.1 % Critically high 43.0-75.0 [facility] Comment on above: Performed By: #### C BC ####[facility] [address] [id number]. Gloria Coffman Platelet mean volume (Bld) [Entitic vol] 10.2 fL Normal 9.5-13.5 [facility] Comment on above: Performed By: #### C BC ####[facility] [address] [id number]. Gloria Coffman PLT 243 103/ul Normal 150-450 [facility] Comment on above: Performed By: #### C BC ####[facility] [address] [address]Dr. Gloria Coffman RBC 4.58 106/ul Critically low 4.70-6.10 [facility] Comment on above: Performed By: #### C BC ####[facility] [address] [address]Dr. Gloria Coffman WBC 9.6 103/ul Normal 4.0-11.0 [facility] Comment on above: Performed By: #### C BC ####[facility] [address] [id number]. Gloria Coffman CT STROKE HEAD WOon 10-13-[address] STROKE HEAD WO EXAMINATION: CT STROKE HEAD WO HISTORY: Acute headache COMPARISON: None. TECHNIQUE: CT examination of the head without IV contrast. Dose reduction techniques were achieved by using automated exposure control and/or adjustment of mA and/or kV according to patient size and/or use of iterative reconstruction technique. FINDINGS: Examination is degraded by artifact. The ventricles, sulci, and remaining CSF containing spaces maintain age-appropriate volume and symmetry. No herniation or hydrocephalus. The mosquera matter/white matter differentiation is maintained throughout. No CT evidence of contemporary infarction. No acute intracranial hemorrhage or parenchymal mass. The calvarium and skull base are intact. The pneumatized portions of the skull are clear. IMPRESSION: 1. No acute intracranial abnormality. Results were called by Dr. Alice Albert MD to Dr. Reyes At 10/12/2021 6:24 PM EDT. Electronically authenticated by: GAVIN ALBERT Date: 2021-10-12 18:35 Normal [facility] CTA HEAD WO W CONon 10-13-19 22 CTA HEAD WO W CON EXAMINATION: CTA HEAD WO W CON HISTORY: Acute headache COMPARISON: None. TECHNIQUE: Contrast enhanced neck CT arteriogram was performed. Scanning performed during the arterial phase through the [place]. 3D reconstructions were rendered on a separate 3D workstation to evaluate vascular anatomy. Dose reduction techniques were achieved by using automated exposure control and/or adjustment of mA and/or kV according to patient size and/or use of iterative reconstruction technique. Carotid stenosis was measured utilizing NASCET criteria. FINDINGS: ICAs: Patent bilaterally to the carotid terminus. MCAs: Normal bilaterally. ACAs: Normal bilaterally. P-Comms: Visualized bilaterally. Vertebral arteries: Normal to the confluence with the basilar artery. Basilar artery: Normal. [place]: Normal bilaterally. Aneurysm: None. Dural venous sinuses: Patent. No intracranial hemorrhage, extra-axial fluid collection, hydrocephalus, midline shift, or acute infarction. No other mass effect. Patent basal cisterns. No calvarial fracture. Normal soft tissues. Paranasal sinuses and mastoid air cells are well-aerated. IMPRESSION: 1. No acute intracranial process. No substantial change since CT head earlier today. 2. Normal CTA of the head. Electronically authenticated by: SUJATHA العلي Date: 2021-10-12 19:28 Normal [facility] POINT OF CARE GLUCOSEon 10-02 Glucose [Mass/Vol] 104 mg/dL Normal 74-[address] [facility] Comment on above: Performed By: #### P OCGLUC #### [facility] [address] [address] [address] Gloria Coffman PROF 14(COMP METB)on 022 Albumin [Mass/Vol] 4.1 g/dL Normal 3.4-5.0 [facility] Comment on above: Performed By: #### C MP #### [facility] [address] [address] [address] Gloria Coffman Albumin/Globulin [Mass ratio] 1.2 {ratio} Normal [facility] Comment on above: Performed By: #### C MP #### [facility] [address] [address] [address] Gloria Coffman ALP [Catalytic activity/Vol] 63 U/L Normal 46-116 [facility] Comment on above: Performed By: #### C MP #### [facility] [address] [address] [address] Gloria Coffman ALT [Catalytic activity/Vol] 39 U/L Normal 16-63 [facility] Comment on above: Performed By: #### C MP #### [facility] [address] [place] [address] Dr. Gloria Coffman Anion gap [Moles/Vol] 13.4 mmol/L Normal [facility] Comment on above: Performed By: #### C MP #### [facility] [address] [place] [address] Dr. Gloria Coffman AST [Catalytic activity/Vol] 15 U/L Normal 15-37 [facility] Comment on above: Performed By: #### C MP #### [facility] [address] [place] [address] Dr. Gloria Coffman Bilirubin [Mass/Vol] 0.4 mg/dL Normal 0.2-1.0 [facility] Comment on above: Performed By: #### C MP #### [facility] [address] [address] [address] Gloria Coffman Calcium [Mass/Vol] 9.2 mg/dL Normal 8.5-10.1 [facility] Comment on above: Performed By: #### C MP #### [facility] [address] [address] [address] Gloria Coffman Chloride [Moles/Vol] 105 mmol/L Normal 98-107 [facility] Comment on above: Performed By: #### C MP #### [facility] [address] [place] [address] Dr. Gloria Coffman CO2 [Moles/Vol] 26.7 mmol/L Normal 21.0-32.0 [facility] Comment on above: Performed By: #### C MP #### [facility] [address] [address] [address] Gloria Coffman Creatinine [Mass/Vol] 1.05 mg/dL Normal 0.70-1.30 [facility] Comment on above: Performed By: #### C MP #### [facility] [address] [address] [address] Gloria Coffman EGFR-AF UKRAINIAN >60 Normal >=60 [facility] Comment on above: Performed By: #### C MP #### [facility] [address] [address] [address] Gloria Coffman EGFR-NON AF UKRAINIAN >60 Normal >=60 [facility] Comment on above: Performed By: #### C MP #### [facility] [address] [address] [address] Gloria Coffman Globulin (S) [Mass/Vol] 3.4 g/dL Normal [facility] Comment on above: Performed By: #### C MP #### [facility] [address] [address] [address] Gloria Coffman Glucose [Mass/Vol] 102 mg/dL Normal 74-106 [facility] Comment on above: Performed By: #### C MP #### [facility] [address] [address] [address] Gloria Coffman Potassium [Moles/Vol] 4.1 mmol/L Normal 3.5-5.1 [facility] Comment on above: Performed By: #### C MP #### [facility] [address] [address] [address] Gloria Coffman Protein [Mass/Vol] 7.5 g/dL Normal 6.4-8.[address] [facility] Comment on above: Performed By: #### C MP #### [facility] [address] [address] [address] Gloria Coffman Sodium [Moles/Vol] 141 mmol/L Normal 136-[address] [facility] Comment on above: Performed By: #### C MP #### [facility] [address] [place], [place] [address] Dr. Gloria Coffman Urea nitrogen [Mass/Vol] 18.0 mg/dL Normal 7.0-18.0 [facility] Comment on above: Performed By: #### C MP #### [facility] [address] [place], [place] [address] Dr. Gloria Coffman Urea nitrogen/Creatinine [Mass ratio] 17.1 mg/mg Normal [facility] Comment on above: Performed By: #### C MP #### [facility] [address] [place], [place] [address] Dr. Gloria Coffman Covid-19 PCR ([facility])on SARS-CoV-2 (COVID-19) RNA LANE+probe Ql (Unsp spec) Detected Critically abnormal NOT DETECTED [facility] Comment on above: Result Comment: This test is not yet approved or cleared by the [place] FDA. When there are no FDA-approved or cleared tests available, and other criteria are met, FDA can make tests available under an emergency access mechanism called an Emergency Use Authorization (EUA). The EUA for this test is supported by the Bus Analyst of Health and Human Service's (HHS's) declaration that circumstances exist to justify the emergency use of in vitro diagnostics for the detection and/or diagnosis of the virus that causes COVID-19. This EUA will remain in effect (meaning this test can be used) for the duration of the COVID-19 declaration justifying emergency of IVDs, unless it is terminated or revoked by FDA (after which the test may no longer be used). Performed By: #### C VDTB ####[facility] [address] [place], [place] [address]VdDr. Gloria Coffman Vital Signs Date Time Vital Sign Value Performing Clinician Facility 05-21-2023 15:15-0500 Diastolic blood pressure 86 mm[Hg] MD Misty Wells Work Phone: [facility] 05-21-2023 15:15-0500 Heart rate 85 /min MD Misty Wells Work Phone: [facility] 05-21-2023 15:15-0500 Respiratory rate 16 /min MD Misty Wells Work Phone: [facility] 05-21-2023 15:15-0500 SaO2% (BldA) [Mass fraction] 100 % MD Misty Wells Work Phone: [facility] 05-21-2023 15:15-0500 Systolic blood pressure 132 mm[Hg] MD Misty Wells Work Phone: [facility] 05-21-2023 14:17-0500 Body temperature 98 [degF] MD Misty Wells Work Phone: [facility] 05-21-2023 13:47-0500 Inhaled oxygen flow rate 10 L/min MD Misty Wells Work Phone: [facility] 05-21-2023 12:39-0500 Body height 177.8 cm MD Misty Wells Work Phone: [facility] 05-21-2023 12:39-0500 Body mass index (BMI) [Ratio] 30.7 kg/m2 MD Misty Wells Work Phone: [facility] 05-21-2023 12:39-0500 Body weight 97 kg MD Misty Wells Work Phone: [facility] 05-11-2023 08:15-0500 Body height 177.8 cm Bruce Galvan Other [facility] Other 05-11-2023 08:15-0500 Body mass index (BMI) [Ratio] 27.98 kg/m2 Bruce Galvan Other [facility] Other 05-11-2023 08:15-0500 Body weight 88.45 kg Bruce Galvan Other [facility] Other 04-06-2023 08:00-0500 Body height 177.8 cm Montse Rosario Other [facility] Other 04-06-2023 08:00-0500 Body mass index (BMI) [Ratio] 27.98 kg/m2 Montse Gallegosarney Other [facility] Other 04-06-2023 08:00-0500 Body weight 88.45 kg Montse Rosario Other [facility] Other 03-02-2023 08:15-0400 Body height 177.8 cm Bruce Nagyley Other [facility] Other 03-02-2023 08:15-0400 Body mass index (BMI) [Ratio] 27.98 kg/m2 Bruce Latrice Other [facility] Other 03-02-2023 08:15-0400 Body weight 88.45 kg Bruce Latrice Other [facility] Other 02-23-2023 11:00-0400 Body height 177.8 cm Bruce Galvan Other [facility] Other 02-23-2023 11:00-0400 Body mass index (BMI) [Ratio] 27.98 kg/m2 Bruce Nagyley Other [facility] Other 02-23-2023 11:00-0400 Body weight 88.45 kg Bruce Latrice Other [facility] Other Encounters Encounter Date Encounter Type Care Provider Facility Start: 08-17-2023 End: 08-18-2023 ambulatory [facility] Facility:[facility] Start: 08-12-2023 End: 08-12-2023 ambulatory [facility] Work Phone: Start: 08-12-2023 End: 08-12-2023 Patient encounter procedure [facility] Work Phone: Start: 07-01-2023 End: 07-01-2023 Patient encounter procedure [facility] Work Phone: Start: 06-01-2023 End: 06-01-2023 ambulatory Bruce Galvan Other [facility] Other Start: 06-01-2023 Postop follow up vis it related to original px Bruce Galvan [facility] Start: 05-21-2023 End: 05-21-2023 ambulatory Bruce Galvan Facility:[facility] Start: 05-21-2023 Non-patient / Non-visit MD Quinn Wells Work Phone: [facility] Work Phone: Start: 05-13-2023 End: 05-13-2023 ambulatory Bruce Galvan Facility:[facility] Start: 05-13-2023 End: 05-13-2023 ambulatory MD Misty Wells Work Phone: [facility] Work Phone: Start: 05-13-2023 End: 05-13-2023 Patient encounter procedure MD Misty Wells Work Phone: [facility] Work Phone: Start: 05-11-2023 End: 05-11-2023 ambulatory Bruce Galvan Other [facility] Other Start: 05-11-2023 Encounter for other preprocedural examination Bruce Galvan [facility] Start: 05-11-2023 Office outpatient vi sit 25 minutes Bruce Galvan [facility] Start: 04-06-2023 End: 04-06-2023 ambulatory Montse Rosario Other [facility] Other Start: 04-06-2023 Office outpatient vi sit 15 minutes Montse Rosario [facility] Start: 03-02-2023 End: 03-02-2023 ambulatory Bruce Galvan Other [facility] Other Start: 03-02-2023 Office outpatient vi sit 25 minutes Bruce Galvan [facility] Start: 02-26-2023 End: 02-26-2023 ambulatory Bruce Galvan Facility:[facility] Start: 02-26-2023 End: 02-26-2023 ambulatory MD Misty Wells Work Phone: [facility] Work Phone: Start: 02-26-2023 End: 02-26-2023 Patient encounter procedure MD Misty Wells Work Phone: [facility] Work Phone: Start: 02-23-2023 Office outpatient ne w 45 minutes Bruce Galvan [facility] Start: 02-23-2023 End: 02-23-2023 ambulatory MD Misty Wells Work Phone: [facility] Other Start: 02-23-2023 End: 02-23-2023 Patient encounter procedure MD Misty Wells Work Phone: [facility] Start: 10-31-2022 End: 11-01-2022 ambulatory Aranza BASILIO Facility:[facility] Start: 10-13-2021 End: 10-14-2021 Evaluation and management of inpatient DR IGNACIO LAGUNAS Facility:[facility] Start: 04-11-2021 End: 04-11-[address] MISTY WELLS Facility:[facility] Start: 04-09-2021 End: 04-09-[address] MISTY WELLS Facility:[facility] Procedures Date Procedure Procedure Detail Performing Clinician Start: 02-26-2023 MRI of left knee MD Quinn Wells Work Phone: Start: 02-23-2023 X-ray of left knee MD Raymond Wells Work Phone: History of operative procedure on knee S/P arthroscopic knee surgery MD Misty Wells Work Phone: Plan of Treatment Date Care Activity Detail Author Start: 05-21-2023 [facility] Start: 05-21-2023 [facility] Patient referral [facility] Work Phone: Immunizations Immunization Date Immunization Notes Care Provider Fa cili 08-14-2020 COVID-19 mRNA Comirtorsten (Pfizer) MD Misty Wells Work Phone: [facility] 07-23-2020 COVID-19 mRNATateirtorsten (Pfizer) MD Misty Wells Work Phone: [facility] Payers Date Payer Category Payer Self-pay 2023 Unknown [id number] 1971 Unknown [id number] 1971 Unknown [id number] 1971 Unknown [id number] 1959 Unknown [id number] Unknown [facility] [id number] Unknown [id number] Unknown [id number] Unknown [id number] Unknown [id number] Social History Date Type Detail Facility Sex Assigned At [facility] Other Start: 1970 Sex Assigned At Male F [facility] Start: 05-13-2023 End: 05-21-2023 Tobacco smoking status NHIS Never smoked tobacco (finding) [facility] Evaluation note 06-01-2023 Note Date & Type Note Facility 06-01-2023 Evaluation note Encounter Date Diagnosis Assessment Notes May, Internal derangement of left knee (ICD-10 - M23.92) May, Other tear of medial meniscus of left knee as current injury, subsequent encounter (ICD-10 - S83.242D) See orders for this visit as documented in the electronic medical record. May, Other specified postprocedural states (ICD-10 - Z98.890) Instructed on application of Neosporin to incision to help dryness if needed. Sutures removed today under sterile conditions. Patient tolerated well with no adverse reactions. May allow incision to get wet in clean running water, no ramsey/sotelo/s treams. Patient given order for physical therapy. Instructed to call with any questions or concerns May, Encounter for removal of sutures (ICD-10 - Z48.02) May, S/P left knee arthroscopy (ICD-10 - Z98.890) Asad is here now 1 week s/p left knee arthroscopy with medial plica excision and patellar chondroplasty. He had mild medial compartment degenerative changes but no medial meniscus tear was appreciated. Overall he is doing as expected. His surgical incisions and physical exam are benign today. Sutures were removed. Will get him in a course of physical therapy and I will plan to see him back in about 4 weeks for recheck [facility] Other Evaluation note 05-11-2023 Note Date & Type Note Facility 05-11-2023 Evaluation note Encounter Date Diagnosis Assessment Notes May, Internal derangement of left knee (ICD-10 - M23.92) Asad returns with left knee pain and medial meniscus tear. At this juncture we have discussed the findings and diagnosis as well as personally reviewed appropriate imaging and performed interpretation of related testing and examination with the patient in office today. Prior medical notes and history have been reviewed. Up to now he has tried physical therapy as well as anti-inflammator y medication and cortisone injection with minimal relief of his pain. Complaining of medial pain today with popping. At this point since he has failed conservative treatment options I did offer knee arthroscopy which he wished to proceed with we will get this set up as soon as possible. At this juncture we have discussed the findings and diagnosis as well as reviewed appropriate imaging and performed interpretation of testing. Surgical intervention is recommended. Prior medical notes and history have been reviewed. Surgical versus non-operative management have been discussed in detail and non-operative management was given as an option. The risks of surgical intervention were given. Pre-operative optimization will be done prior to surgical procedure to limit zee-operative risks. I have discussed the planned procedure, how and who performs the procedure, and the personnel involved. Cardiovascular, pulmonary, and other life threatening episodes can occur during surgery although there is a low risk of these happening. Surgical risks including bleeding, neurovascular injury, wound closure problems and infection were discussed. Zee-operative risks including infection, bleeding, wound healing problems, and need for further surgery were discussed. It was discussed that there is a possibility of blood transfusion with any surgical procedure and the risks involved in receiving a blood transfusion. Possibility of, and need for, future bracing or DME use, physical or occupational therapy, mental therapy, rehabilitation, pain management and need for secondary procedures was discussed. I have warned against smoking and the use of tobacco products due to the risks associated with them, in particular, poor healing. 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 I have advised to follow all post-operative instructions in order to obtain the best outcome. Informed consent has been verbally affirmed and signed as indicated. The patient has been involved in our cooperative treatment plan and agrees to move forward with treatment at this time. May, Other tear of medial meniscus of left knee as current injury, subsequent encounter (ICD-10 - S83.242D) We will plan on arthroscopy and menisectemy. We have discussed continued non-operative treatments including gentle exercise, use of medications and activity modification. Patient states that they would like to proceed with surgery at this time. We discussed the surgery process in detail including nothing by mouth 8 hrs prior to sugery, thorough washing of leg pior to coming to surgery. We discussed the multiple potential risks of anesthesia including respiratory, cardiac and patient positioning issues. We discussed the multiple risks of surgery particularly wound infection, deep venous thrombosis(DVT) , persistent swelling, pain and stiffness after surgery, as well as worsening of pre-existing arthritic symptoms. Patient has agreed to understanding of these risks and would like to proceed. May, Acute pain of left knee (ICD-10 - M25.562) May, Preop examination (ICD-10 - Z01.818) [facility] Other Evaluation note 04-06-2023 Note Date & Type Note Facility 04-06-2023 Evaluation note Encounter Date Diagnosis Assessment Notes Apr, Internal derangement of left knee (ICD-10 - M23.92) Asad presents with left knee pain and medial meniscus tear. At this juncture we have discussed the findings and diagnosis as well as personally reviewed appropriate imaging and performed interpretation of related testing and examination with the patient in office today. Prior medical notes and history have been reviewed. Today we discussed findings of the MRI and I have recommended conservative treatment for the time being. Patient would like to continue physical therapy at this time. He would like to avoid surgery. Offered patient a hinged knee brace for stability he denies need for that. We will plan to see him back in 4 weeks for recheck. Off work until follow-up The patient has been involved in our cooperative treatment plan and agrees to move forward with treatment at this time. Treatment options discussed with patient. Patient would like to continue physical therapy at this time. New order given for physical therapy. Off work note given. Apr, Other tear of medial meniscus of left knee as current injury, subsequent encounter (ICD-10 - S83.242D) Apr, Acute pain of left knee (ICD-10 - M25.562) Apr, Other Examination and assessment of this patient was performed by Montse Rosario NP and patient will continue with the treatment plan per Dr. Galvan, who initiated this treatment plan. Dr. Gomez is present in the office today and providing supervision. [facility] Other Evaluation note 03-02-2023 Note Date & Type Note Facility 03-02-2023 Evaluation note Encounter Date Diagnosis Assessment Notes Feb, Internal derangement of left knee (ICD-10 - M23.92) Asad presents with left knee pain and medial meniscus tear. At this juncture we have discussed the findings and diagnosis as well as personally reviewed appropriate imaging and performed interpretation of related testing and examination with the patient in office today. Prior medical notes and history have been reviewed. Today we discussed findings of the MRI and I have recommended conservative treatment for the time being. Discussed a trial of cortisone injection which he is agreeable to. Risks and benefit of injection were discussed and verbal consent was obtained. Under sterile technique the patient's left knee was injected via the inferolateral portal with 4 cc of Marcaine and 1 cc of Kenalog, this was tolerated well without any adverse reaction. Band-Aid was applied to the area. We will also get him started on therapy. I will plan to see him back in 4 weeks for recheck. Off work until follow-up The patient has been involved in our cooperative treatment plan and agrees to move forward with treatment at this time. Feb, Other tear of medial meniscus of left knee as current injury, subsequent encounter (ICD-10 - S83.242D) MRI was reviewed with patient in detail. We performed a 4/1cc marcaine / kenalog cortisone injection into the knee joint under sterile technique. Patient tolerated the injection well without adverse reaction. Patient was given a formal order for therapy. Feb, Acute pain of left knee (ICD-10 - M25.562) [facility] Other Evaluation note 02-23-2023 Note Date & Type Note Facility 02-23-2023 Evaluation note Encounter Date Diagnosis Assessment Notes Feb, Acute pain of left knee (ICD-10 - M25.562) Feb, Internal derangement of left knee (ICD-10 - M23.92) Asad presents with left knee pain and concern for internal derangement. At this juncture we have discussed the findings and diagnosis as well as personally reviewed appropriate imaging and performed interpretation of related testing and examination with the patient in office today. Prior medical notes and history have been reviewed. At this time I would recommend MRI of the left knee for evaluation of internal derangement. We will plan for follow-up after MRI is completed. 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 I am concerned about a potential meniscal tear that will not improve with conservative and non-operative treatments. Continued active use of the knee can lead to worsening of the condition and lead to irreversible damage to the knee. An MRI of the knee will be necessary to identify the source of pain and plan potential surgical treatment. Feb, Other See orders for this visit as documented in the electronic medical record. [facility] Other Evaluation note Note Date & Type Note Facility Evaluation note No assessment information availa ble [facility] Work Phone: Evaluation note Note Date & Type Note Facility Evaluation note Diagnosis Onset Date Other specified postprocedural states acute Tear of medial meniscus of left knee acute Other specified postprocedural states acute Tear of medial meniscus of left knee acute [facility] Work Phone: History general Narrative - Reported Note Date & Type Note Facility History general Narrative - Reported Type Medical History hypertensive heart disease Medical History Gout Medical History hypercholesterolemia Surgical History ORIF R ANKLE 2001 Hospitalization History VERTIGO 2021 [facility] Other Hospital Discharge instructions Note Date & Type Note Facility Hospital Discharge instructions Additional Instructions Orthopedic surgery knee arthroscopy discharge You are to maintain weightbearing as tolerated with range of motion as tolerated to your operative leg. You should elevate the injured extremity for the next 48 to 72 hours, as often as possible. You should ice the surgical area, 20 minutes with ice on and then 20 minutes off, for 3 hours a day for the first week. You may remove your postoperative dressing 48 hours after surgery and then keep your incisions covered with a Band-Aid. Take your medications as prescribed. You may take Tylenol or ibuprofen [id number] as instructed. You should take aspirin 81 mg twice daily for 3 weeks for DVT prophylaxis. If you have any increasing pain, fever chills, or abnormal drainage or surgical wound problems you should call the office. Your follow-up should be scheduled with Dr. Galvan's office at [facility]. Please call to confirm your follow-up appointment. [facility] [address] [place] [address] [facility] Work Phone: Summary Purpose Family History No Family History Records Found Relationship Condition Age at Onset Recorded Date/T tiffany father Hypertension Unknown Coronary artery disease Unknown Obesity Unknown Not Specified Cerebral aneurysm Unknown sister Cerebral aneurysm Unknown Alcoholism Unknown Relationship Condition Age at Onset Recorded Date/T tiffany father Hypertension Unknown Coronary artery disease Unknown Obesity Unknown Not Specified Cerebral aneurysm Unknown sister Cerebral aneurysm Unknown Alcoholism Unknown father Heart disease Unknown Unknown Not Specified Cerebral hemorrhage Unknown Advance Directives No Advanced Directives Records Found Advance Directive Response Recorded Date/ Time Advance Directives No February 26, 2023 7:54pm Advance Directive Response Recorded Date/ Time Advance Directives No February 26, 2023 6:54pm Chief Complaint and Reason for Visit Chief Complaint M25.562 M23.92 M25.562 Chief Complaint M25.562 M23.92 M25.562 Knee Pain Chief Complaint M25.562 M23.92 M25.562 Knee Pain Knee Pain Chief Complaint Knee Pain 4 WEEKS 6 WEEKS Reason for Visit Other specified post procedural states Tear of medial meniscus of left knee Other specified postprocedural states Tear of medial meniscus of left knee Additional Source Comments (unrecognized sect ion and content) No Status Records FoundNo Status Records FoundNo Status Records Found INFORMATION SOURCE (unrecogn ized section and content) DATE CREATED AUTHOR [facility]/02/[address] [facility] DATE CREATED AUTHOR AUTHOR'S ORGANIZ ATION 06/11/2023 [facility] DATE CREATED AUTHOR AUTHOR'S ORGANIZ ATION 08/18/2023 [facility] REASON FOR VISIT (unrecogniz ed section and content) Left Knee PainMRI ResultsRec heck Left KneeRecheck Left KneeRecheck Left Knee Care Teams (unrecognized sec tion and content) Team Status: Active Member Role Status Dates Misty Wells MD Primary Care Provider Active Team Status: Active Member Role Status Dates Misty Wells MD Primary Care Provider Active Start: May 21, 2023 Bruce Galvan DO Attending Provider, Other Provider Active Start: May 21, 2023 Team Status: Inactive Member Role Status Dates Misty Wells MD Primary Care Provider Active Start: July 01, 2023 End: July 01, 2023 Bruce Galvan DO Attending Provider Active S tart: July 01, 2023 End: July 01, 2023 Team Status: Inactive Member Role Status Dates Misty Wells MD Primary Care Provider Active Start: August 12, 2023 End: August 12, 2023 Bruce Galvan DO Attending Provider Active S tart: August 12, 2023 End: August 12, 2023 Team Status: Inactive Member Role Status Dates Misty Wells MD Primary Care Provider Active Bruce Galvan DO Attending Provider Active Team Status: Inactive Member Role Status Dates Misty Wells MD Primary Care Provider Active Start: February 23, 2023 End: February 23, 2023 Bruce Galvan DO Attending Provider Active S tart: February 23, 2023 End: February 23, 2023 Team Status: Inactive Member Role Status Dates Misty Wells MD Primary Care Provider Active Start: February 26, 2023 End: February 26, 2023 Bruce Galvan DO Attending Provider Active S tart: February 26, 2023 End: February 26, 2023 Team Status: Inactive Member Role Status Dates Misty Wells MD Primary Care Provider Active Start: May 13, 2023 End: May 13, 2023 Bruce Galvan DO Attending Provider Active S tart: May 13, 2023 End: May 13, 2023 Goals (unrecognized section and content) Goals may be documented in a n alternate section FOR RECORDS PERTAINING TO PATIENTS WHO ARE OR HAVE BEEN ENROLLED IN A CHEMICAL DEPENDENCY/SUBSTANCEABUSE PROGRAM, SOME INFORMATION MAY BE OMITTED. This clinical summary was aggregated from multiple sources. Caution should be exercised in using it in the provision of clinical care. This summary normalizes information from multiple sources, and as a consequence, information in this document may materially change the coding, format and clinical context of patient data. In addition, data may be omitted in some cases. CLINICAL DECISIONS SHOULD BE BASED ON THE PRIMARY CLINICAL RECORDS. [facility]. provides no warranty or guarantee of the accuracy or completeness of information in this document.
[2024-01-05 09:39] LABS: Basophils Percent Auto 0.7 % (0.2-2.0); Eosinophils Absolute Auto 0.3 10^3/uL (0.0-0.7); Eosinophils Percent Auto 5.9 % (0.9-7.0); Hematocrit 41.3 % (42.0-54.0); Hemoglobin 13.8 g/dL (14.0-18.0); Immature Granulocytes Abs Auto 0.02 10^3/uL (0.00-0.03); Immature Granulocytes Pct Auto 0.3 % (0.0-0.5); Lymphocytes Absolute Auto 1.5 10^3/uL (1.2-3.8); Lymphocytes Percent Auto 25.2 % (20.5-60.0); Mean Corpuscular HGB Conc 33.4 g/dL (29.9-35.2); Mean Corpuscular Hemoglobin 30.5 pg (25.9-34.0); Mean Corpuscular Volume 91.2 fL (80.0-94.0); Mean Platelet Volume 11.9 fL (9.5-13.5); Monocytes Absolute Auto 0.5 10^3/uL (0.3-0.8); Monocytes Percent Auto 9.2 % (1.7-12.0); Neutrophils Absolute Auto 3.4 10^3/uL (1.4-6.5); Neutrophils Percent Auto 58.7 % (43.0-75.0); Platelet Count 217 10^3/uL (150-450); Red Blood Count 4.53 10^6/uL (4.70-6.10); Red Cell Distribution Width 12.4 % (11.0-15.0); White Blood Count 5.8 10^3/uL (4.0-11.0)
[2024-01-05 09:57] LABS: Estimated Average Glucose 111 mg/dL; Glycohemoglobin A1C 5.5 % (4.5-6.2)
[2024-01-05 10:51] LABS: Alanine Aminotransferase 50 U/L (16-63); Albumin Globulin Ratio 1.1; Albumin Level 3.7 g/dL (3.4-5.0); Alkaline Phosphatase 70 U/L (46-116); Anion Gap 14.5; Aspartate Amino Transferase 22 U/L (15-37); BUN Creatinine Ratio 11.6; Bilirubin Total 0.4 mg/dL (0.2-1.0); Calcium 9.5 mg/dL (8.5-10.1); Carbon Dioxide 26.9 mmol/L (21.0-32.0); Chloride 105 mmol/L (98-107); Chol HDL Ratio 2.6; Cholesterol 171 mg/dL (<=200); Estimated GFR (African America >60 (>=60); Estimated GFR (Non-African Ame >60 (>=60); Free T3 1.97 pg/mL (2.18-3.98); Globulin 3.4 g/dL; Glucose 100 mg/dL (74-106); HDL Cholesterol 66 mg/dL (40-60); Potassium 4.4 mmol/L (3.5-5.1); Sodium 142 mmol/L (136-145); Thyroid Stimulating Hormone 1.544 uIU/mL (0.358-3.740); Total Protein 7.1 g/dL (6.4-8.2); Triglycerides 109 mg/dL (<=150); Uric Acid 5.2 mg/dL (3.5-7.2); VLDL CHOLESTEROL 21.8 mg/dL
[2024-01-05 11:26] LABS: Prostate Specific Antigen Scrn 0.55 ng/mL (<=4.00)
== END 2024-01-05 08:56 | disposition home or self-care (01) ==
PROVIDERS: PCP Family Medicine; Visit Provider Family Medicine
DX: Z00.00 Encounter for general adult medical examination without abnormal findings (principal)
CPT/HCPCS: 36415; 80053; 80061; 83036; 83525; 84436; 84443; 84481; 84550; 85025; G0103

== ENCOUNTER 2024-02-05 07:57 | Outpatient (OUT) | payer OTHER, SELFPAY ==
--- OUTSIDE RECORDS SUMMARY | 2024-02-05 08:01 | XMS_ITS | CCD ---
Author Organization [facility] [employer]iniSyn[employer] Care Team Providers Care Principal Java Software Engineer Name Role Phone DR IGNACIO LAGUNAS Consulting [...] GET, DR JAY Admitting Unavailable GET, DR AJY Attending Unavailable GET, DR JAY Consulting Unavailable GET, DR JAY Primary Care Unavailable Bruce Galvan Unavailable MD Misty Wells Primary Care Provider [phone] DO Bruce Galvan Attending Provider Montse Rosario Unavailable MD Misty Wells Primary Care Provider [phone] Bruce Galvan Attending Provider Bruce Galvan Admitting Unavailable Bruce Galvan Attending [...] PO Twice daily May 13, 2023 1:00am Kw-Yzj-Pvdwd-K1-Ly copen-Lutein (Centrum Silver Men) 730-03-003-300 mcg Tablet (3 sources) Start: 05-13-2023 take 1 tablet by mouth once daily Wx-Dsd-Pjfxx-K1-L ycopen-Lutein (Centrum Silver Men) 931-40-750-300 mcg Tablet Active 1 TAB PO Daily May 13, 2023 1:00am Start: 05-13-2023 take 1 tablet by jennifer th once daily Uo-Iez-Pspiv-V1-Nyighot-Sjawtr (Centrum Silver Men) 952-86-946-300 mcg Tablet Active 1 TAB PO Daily [...] 10-17-2021 Episodic Other aftercare (1 source) 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; Translations: [OTH FDC CURRENT DRUG THERAPY] Onset: 10-17-2021 Episodic Other [...] Interpretation Reference Range Facility Registrationon 08-18-2023 Registration [id number] 0#1.00TIFF [facility] Registration [id number] 3#1.00TIFF [facility] In office Testingon 08-17-19 24 In office Testing [id number] #1.00TIFF Normal [facility] Alanine aminotransferase [En zymatic activity/volume] in Serum or PlasmaOrdered By: Bruce Galvan on 05-13-2023 ALT [Catalytic activity/Vol] 35 U/L 7-52 [facility] Albumin [Mass/volume] in Ser um or Plasma by Bromocresol green (BCG) dye binding methoOrdered By: Bruce Galvan on 05-13-2023 Albumin BCG dye [Mass/Vol] 4.6 g/dL 3.5-5.7 [facility] Alkaline phosphatase [Enzyma tic activity/volume] in Serum or PlasmaOrdered By: Bruce Galvan on 05-13-2023 ALP [Catalytic activity/Vol] 61 U/L 34-104 [facility] Aspartate aminotransferase [ Enzymatic activity/volume] in Serum or PlasmaOrdered By: Bruce Galvan on 05-13-2023 AST [Catalytic activity/Vol] 20 U/L 13-39 [facility] Basophils Auto (Bld) [#/Vol] Ordered By: Bruce Galvan on 05-13-2023 Basophils (Bld) [#/Vol] 0.0 10*3/uL 0.0-0.2 [facility] Basophils/100 WBC Auto (Bld) Ordered By: Bruce Galvan on 05-13-2023 Basophils/100 WBC (Bld) 0.4 % . [facility] Bilirubin.total [Mass/volume ] in Serum or PlasmaOrdered By: Bruce Galvan on 05-13-2023 Bilirubin [Mass/Vol] 0.5 mg/dL 0.3-1.0 [facility] CMP with reflex to A1Con Albumin [Mass/Vol] 4.6 g/dL Normal 3.5-5.7 [facility] Comment on above: Performed By: #### C BC, CMP wRFX A1C #### [address] Albumin/Globulin [Mass ratio] 1.8 {ratio} Normal [facility] Comment on above: Performed By: #### C BC, CMP wRFX A1C #### [facility] [address] ALP [Catalytic activity/Vol] 61 U/L Normal 34-104 [facility] Comment on above: Result Comment: PERF ORMED BY: [place] [address] PATHOLOGIST RECREATION TECHNICIAN LARRY PIZANO M.D. Performed By: #### C BC, CMP wRFX A1C #### [facility] [address] ALT [Catalytic activity/Vol] 35 U/L Normal 7-52 [facility] Comment on above: Performed By: #### C BC, CMP wRFX A1C #### [address] Anion gap [Moles/Vol] 9.3 mmol/L Normal 6.0-15.0 [facility] Comment on above: Performed By: #### C BC, CMP wRFX A1C #### [address] AST [Catalytic activity/Vol] 20 U/L Normal 13-39 [facility] Comment on above: Performed By: #### C BC, CMP wRFX A1C #### [address] Bilirubin [Mass/Vol] 0.5 mg/dL Normal 0.3-1.0 [facility] Comment on above: Performed By: #### C BC, CMP wRFX A1C #### [place] [address] [place] Calcium [Mass/Vol] 9.7 mg/dL Normal 8.6-10.3 [facility] Comment on above: Performed By: #### C BC, CMP wRFX A1C #### [address] Chloride [Moles/Vol] 105 mmol/L Normal 98-107 [facility] Comment on above: Performed By: #### C BC, CMP wRFX A1C #### [address] [place] [address] [place] CO2 [Moles/Vol] 30.0 mmol/L Normal 21.0-31.0 [facility] Comment on above: Performed By: #### C BC, CMP wRFX A1C #### [facility] [address] [place] [address] [place] Creatinine [Mass/Vol] 1.07 mg/dL Normal 0.70-1.30 [facility] Comment on above: Performed By: #### C BC, CMP wRFX A1C #### [facility] [address] [place] [address] [place] GFR/1.73 sq M.predicted MDRD (S/P/Bld) [Vol rate/Area] mL/min/{1.73_m2} Normal [facility] Comment on above: Performed By: #### C BC, CMP wRFX A1C #### [facility] [address] [place] [address] [place] Globulin (S) [Mass/Vol] 2.5 g/dL Normal [facility] Comment on above: Performed By: #### C BC, CMP wRFX A1C #### [facility] [address] [place] [address] [place] Glucose [Mass/Vol] 97 mg/dL Normal 70-100 [facility] Comment on above: Performed By: #### C BC, CMP wRFX A1C #### [facility] [address] [place] [address] [place] Potassium [Moles/Vol] 4.3 mmol/L Normal 3.5-5.1 [facility] Comment on above: Performed By: #### C BC, CMP wRFX A1C #### [facility] [address] [place] [address] [place] Protein [Mass/Vol] 7.1 g/dL Normal 6.4-8.9 [facility] Comment on above: Performed By: #### C BC, CMP wRFX A1C #### [facility] [address] [place] [address] [place] Sodium [Moles/Vol] 140 mmol/L Normal 136-145 [facility] Comment on above: Performed By: #### C BC, CMP wRFX A1C #### [facility] [address] Urea nitrogen [Mass/Vol] 15 mg/dL Normal 7-25 [facility] Comment on above: Performed By: #### C BC, CMP wRFX A1C #### [facility] [address] [place] [address] [place] Calcium [Mass/volume] in Ser um or PlasmaOrdered By: Bruce Galvan on 05-13-2023 Calcium [Mass/Vol] 9.7 mg/dL 8.6-10.3 [facility] Carbon dioxide, total [Moles /volume] in Serum or PlasmaOrdered By: Bruce Galvan on 05-13-2023 CO2 [Moles/Vol] 30.0 mmol/L 21.0-31.0 [facility] Chloride [Moles/volume] in S sara or PlasmaOrdered By: Bruce Galvan on 05-13-2023 Chloride [Moles/Vol] 105 mmol/L 98-107 [facility] Complete Blood Count Auto Di ffon 05-13-2023 Basophils (Bld) [#/Vol] 0.0 10*3/uL Normal 0.0-0.2 [facility] Comment on above: Result Comment: PERF ORMED BY: [place] [address] PATHOLOGIST RECREATION TECHNICIAN LARRY PIZANO M.D. Performed By: #### C BC, CMP wRFX A1C #### [facility] [address] [place] [address] [place] Basophils/100 WBC (Bld) 0.4 % Normal . [facility] Comment on above: Performed By: #### C BC, CMP wRFX A1C #### [facility] [address] [place] [address] [place] Eosinophils (Bld) [#/Vol] 0.2 10*3/uL Normal 0.0-0.45 [facility] Comment on above: Performed By: #### C BC, CMP wRFX A1C #### [facility] [address] [place] [address] [place] Eosinophils/100 WBC (Bld) 3.7 % Normal . [facility] Comment on above: Performed By: #### C BC, CMP wRFX A1C #### [facility] [address] Erythrocyte distribution width (RBC) [Ratio] 13.2 % Normal 12.0-14.8 [facility] Comment on above: Performed By: #### C BC, CMP wRFX A1C #### [facility] [address] Hematocrit (Bld) [Volume fraction] 41.2 % Normal 38.8-50.0 [facility] Comment on above: Performed By: #### C BC, CMP wRFX A1C #### [facility] [address] Hemoglobin (Bld) [Mass/Vol] 14.1 g/dL Normal 13.0-17.0 [facility] Comment on above: Performed By: #### C BC, CMP wRFX A1C #### [facility] [address] [place] [address] [place] Lymphocytes (Bld) [#/Vol] 1.6 10*3/uL Normal 1.00-4.8 [facility] Comment on above: Performed By: #### C BC, CMP wRFX A1C #### [facility] [address] [place] [address] [place] Lymphocytes/100 WBC (Bld) 24.8 % Normal . [facility] Comment on above: Performed By: #### C BC, CMP wRFX A1C #### [facility] [address] [place] [address] [place] MCH (RBC) [Entitic mass] 31.1 pg Normal 27.5-35.2 [facility] Comment on above: Performed By: #### C BC, CMP wRFX A1C #### [facility] [address] MCV (RBC) [Entitic vol] 90.8 fL Normal 83.5-101 [facility] Comment on above: Performed By: #### C BC, CMP wRFX A1C #### [facility] [address] Mean Corpuscular HGB Conc 34.3 g/dL Normal 32.5-35.6 [facility] Comment on above: Performed By: #### C BC, CMP wRFX A1C #### [facility] [address] Monocytes (Bld) [#/Vol] 0.6 10*3/uL Normal 0.0-0.8 [facility] Comment on above: Performed By: #### C BC, CMP wRFX A1C #### [facility] [address] Monocytes/100 WBC (Bld) 9.1 % Normal . [facility] Comment on above: Performed By: #### C BC, CMP wRFX A1C #### [facility] [address] [place] [address] [place] Neutrophils (Bld) [#/Vol] 4.0 10*3/uL Normal 1.8-7.7 [facility] Comment on above: Performed By: #### C BC, CMP wRFX A1C #### [place] [address] [place] Neutrophils/100 WBC (Bld) 62.0 % Normal . [facility] Comment on above: Performed By: #### C BC, CMP wRFX A1C #### [place] [address] [place] NRBC% 0.1 /100{WBC} Normal 0-0.5 [facility] Comment on above: Performed By: #### C BC, CMP wRFX A1C #### [facility] [address] [place] [address] [place] Platelet mean volume (Bld) [Entitic vol] 8.7 fL Normal 6.6-10.1 [facility] Comment on above: Performed By: #### C BC, CMP wRFX A1C #### [facility] [address] [place] [address] [place] Platelets (Bld) [#/Vol] 266 10*3/uL Normal 150-450 [facility] Comment on above: Performed By: #### C BC, CMP wRFX A1C #### [facility] [address] RBC (Bld) [#/Vol] 4.54 10*6/uL Normal 3.90-5.60 [facility] Comment on above: Performed By: #### C BC, CMP wRFX A1C #### [facility] [address] [place] [id number] [facility] WBC (Bld) [#/Vol] 6.4 10*3/uL Normal 4.1-10.5 [facility] Comment on above: Performed By: #### C BC, CMP wRFX A1C #### [facility] [address] Creatinine [Mass/volume] in Serum or PlasmaOrdered By: Bruce Galvan on 05-13-2023 Creatinine [Mass/Vol] 1.07 mg/dL 0.70-1.30 [facility] ECG 12 lead ECGon 05-13-2023 ECG 12 lead ECG [facility] [place] [address] [place] [address] Electrocardiograph Report Signed Patient: Johnathon Ludwig MR#: [id number] : 1970 Acct:[id number] Age/Sex: 52 / M ADM Date: 05/13/23 [...] previous ECGs available Confirmed by Maurice Cardoza ([id number]) on 05/14/2023 8:53:06 AM Referred By: GET GALVAN Electronically Signed By:Maurice Cardoza Transcribed By: MUS Signed By Maurice Cardoza MD 05/14/23 0853 Normal [facility] Eosinophils Auto (Bld) [#/Vo l]Ordered By: Bruce Galvan on 05-13-2023 Eosinophils (Bld) [#/Vol] 0.2 10*3/uL 0.0-0.45 [facility] Eosinophils/100 WBC Auto (Bl d)Ordered By: Bruce Galvan on 05-13-2023 Eosinophils/100 WBC (Bld) 3.7 % . [facility] Erythrocyte distribution wid th Auto (RBC) [Ratio]Ordered By: Bruce Galvan on 05-13-2023 Erythrocyte distribution width (RBC) [Ratio] 13.2 % 12.0-14.8 [facility] Globulin Calc (S) [Mass/Vol] Ordered By: Bruce Galvan on 05-13-2023 Globulin (S) [Mass/Vol] 2.5 g/dL [facility] Glucose [Mass/volume] in Ser um or PlasmaOrdered By: Bruce Galvan on 05-13-2023 Glucose [Mass/Vol] 97 mg/dL 70-100 [facility] Hematocrit Auto (Bld) [Volum e fraction]Ordered By: Bruce Galvan on 05-13-2023 Hematocrit (Bld) [Volume fraction] 41.2 % 38.8-50.0 [facility] Hemoglobin [Mass/volume] in BloodOrdered By: Bruce Galvan on 05-13-2023 Hemoglobin (Bld) [Mass/Vol] 14.1 g/dL 13.0-17.0 [facility] Leukocytes [#/volume] correc melanie for nucleated erythrocytes in Blood by Automated counOrdered By: Bruce Galvan on 05-13-2023 WBC corrected for nucl RBC Auto (Bld) [#/Vol] 6.4 10*3/uL 4.1-10.5 [facility] Lymphocytes Auto (Bld) [#/Vo l]Ordered By: Bruce Galvan on 05-13-2023 Lymphocytes (Bld) [#/Vol] 1.6 10*3/uL 1.00-4.8 [facility] Lymphocytes/100 WBC Auto (Bl d)Ordered By: Bruce Galvan on 05-13-2023 Lymphocytes/100 WBC (Bld) 24.8 % . [facility] MCH Auto (RBC) [Entitic mass ]Ordered By: Bruce Galvan on 05-13-2023 MCH (RBC) [Entitic mass] 31.1 pg 27.5-35.2 [facility] MCHC Auto (RBC) [Mass/Vol]Or dered By: Bruce Galvan on 05-13-2023 MCHC (RBC) [Mass/Vol] 34.3 g/dL 32.5-35.6 [facility] MCV Auto (RBC) [Entitic vol] Ordered By: Bruce Galvan on 05-13-2023 MCV (RBC) [Entitic vol] 90.8 fL 83.5-101 [facility] Monocytes Auto (Bld) [#/Vol] Ordered By: Bruce Galvan on 05-13-2023 Monocytes (Bld) [#/Vol] 0.6 10*3/uL 0.0-0.8 [facility] Monocytes/100 WBC Auto (Bld) Ordered By: Bruce Galvan on 05-13-2023 Monocytes/100 WBC (Bld) 9.1 % . [facility] Neutrophils Auto (Bld) [#/Vo l]Ordered By: Bruce Galvan on 05-13-2023 Neutrophils (Bld) [#/Vol] 4.0 10*3/uL 1.8-7.7 [facility] Neutrophils/100 WBC Auto (Bl d)Ordered By: Bruce Galvan on 05-13-2023 Neutrophils/100 WBC (Bld) 62.0 % . [facility] No Panel InformationOrdered By: Bruce Galvan on 05-13-2023 Estimated GFR (CKD-EPI) > 60.0 mL/Min [facility] Creatinine Clearance (Chem N/A [facility] Nucleated erythrocytes [Pres ence] in Blood by Automated countOrdered By: Bruce Galvan on 05-13-2023 Nucleated RBC Auto Ql (Bld) 0.1 /100{WBC} 0-0.5 [facility] Platelet mean volume Auto (B ld) [Entitic vol]Ordered By: Bruce Galvan on 05-13-2023 Platelet mean volume (Bld) [Entitic vol] 8.7 fL 6.6-10.1 [facility] Platelets Auto (Bld) [#/Vol] Ordered By: Bruce Galvan on 05-13-2023 Platelets (Bld) [#/Vol] 266 10*3/uL 150-450 [facility] Potassium [Moles/volume] in Serum or PlasmaOrdered By: Bruce Galvan on 05-13-2023 Potassium [Moles/Vol] 4.3 mmol/L 3.5-5.1 [facility] Protein [Mass/volume] in Ser um or PlasmaOrdered By: Bruce Galvan on 05-13-2023 Protein [Mass/Vol] 7.1 g/dL 6.4-8.9 [facility] RBC Auto (Bld) [#/Vol]Ordere d By: Bruce Galvan on 05-13-2023 RBC (Bld) [#/Vol] 4.54 10*6/uL 3.90-5.60 [facility] Serum or plasma albumin/glob ulin mass ratioOrdered By: Bruce Galvan on 05-13-2023 Albumin/Globulin [Mass ratio] 1.8 {ratio} [facility] Serum or plasma anion gap de terminationOrdered By: Bruce Galvan on 05-13-2023 Anion gap [Moles/Vol] 9.3 mmol/L 6.0-15.0 [facility] Sodium [Moles/volume] in Ser um or PlasmaOrdered By: Bruce Galvan on 05-13-2023 Sodium [Moles/Vol] 140 mmol/L 136-145 [facility] Urea nitrogen [Mass/volume] in Serum or PlasmaOrdered By: Bruce Galvan on 05-13-2023 Urea nitrogen [Mass/Vol] 15 mg/dL 7-25 [facility] WBC Auto (Bld) [#/Vol]Ordere d By: Bruce Galvan on 05-13-2023 WBC (Bld) [#/Vol] 6.4 10*3/uL 4.1-10.5 [facility] MR knee LT wo conon 02-27-20 MR knee LT wo con [facility] [place] [address] [place] [address] MRI Report Signed Patient: Johnathon Ludwig MR#: [id number] : 1970 Acct:[id number] Age/Sex: 52 / M ADM Date: 02/26/23 Loc: MR Room: Type: [facility] CLI Attending Dr: Bruce Galvan DO Copies [...] Asad Reynolds M.D.02/26/2023 11:43 AM Dictation Location: [facility] Transcribed By: ANUJ 02/26/23 1143 Dictated By: Asad Reynolds DO 02/26/23 1120 Signed By: 02/26/23 1143 [facility] XR knee LT 3V - NOT FOR ER U Armen 02-23-2023 XR knee LT 3V - NOT FOR ER USE [facility] [place] [address] XRay Report Signed Patient: Johnathon Ludwig MR#: [id number] : 1970 Acct:[id number] Age/Sex: 52 / M ADM Date: 02/23/23 Loc: [facility] Room: Type: [facility] Attending Dr: Bruce Galvan DO Copies to: [...] Asad Reynolds M.D.02/23/2023 3:07 PM Dictation Location: [facility] Transcribed By: ANUJ 02/23/23 1507 Dictated By: Asad Reynolds DO 02/23/23 1506 Signed By: 02/23/23 1507 [facility] In office Testingon 11-06-19 In office Testing [id number] 1#1.00CD:127 [facility] Consenton 10-31-2022 Consent [id number] 7#1.00CD:127 [facility] Registrationon 10-31-2022 Registration [id number] 1#1.00CD:127 Normal [facility] CBC AUTO DIFFon 10-14-2021 BASO # 0.0 103/ul Normal 0.0-0.1 [facility] Comment on above: Performed By: #### C BC #### [facility] [address] [address] [address] Gloria Coffman Basophils/100 WBC (Bld) 0.1 % Critically low 0.2-2.0 [facility] Comment on above: Performed By: #### C BC #### [facility] [address] [place] [address] Dr. Gloria Coffman EO # 0.0 103/ul Normal 0.0-0.7 [facility] Comment on above: Performed By: #### C BC #### [facility] [address] [place] [address] Dr. Gloria Coffman Eosinophils/100 WBC (Bld) 0.0 % Critically low 0.9-7.0 [facility] Comment on above: Performed By: #### C BC #### [facility] [address] [place] [address] Dr. Gloria Coffman Erythrocyte distribution width (RBC) [Ratio] 13.1 % Normal 11.0-15.0 [facility] Comment on above: Performed By: #### C BC #### [facility] [address] [place] [address] Dr. Gloria Coffman Hematocrit (Bld) [Volume fraction] 41.4 % Critically low 42.0-54.0 [facility] Comment on above: Performed By: #### C BC #### [facility] [address] [place] [address] Dr. Gloria Coffman Hemoglobin (Bld) [Mass/Vol] 13.6 g/dL Critically low 14.0-18.0 [facility] Comment on above: Performed By: #### C BC #### [facility] [address] [place] [address] Dr. Gloria Coffman IG # 0.02 10e3/ul Normal 0.00-0.03 [facility] Comment on above: Performed By: #### C BC #### [facility] [address] [place] [address] Dr. Gloria Coffman IG % 0.2 % Normal 0.0-0.5 [facility] Comment on above: Performed By: #### C BC #### [facility] [address] [address] [address] Gloria Coffman LYMPH # 0.8 103/ul Critically low 1.2-3.[address] [facility] Comment on above: Performed By: #### C BC #### [facility] [address] [place] [address] Dr. Gloria Coffman Lymphocytes/100 WBC (Bld) 7.3 % Critically low 20.5-60.0 [facility] Comment on above: Performed By: #### C BC #### [facility] [address] [place] [address] Dr. Gloria Coffman MANUAL DIFF REQ NO Normal [facility] Comment on above: Performed By: #### C BC #### [facility] [address] [place] [address] Dr. Gloria Coffman MCH (RBC) [Entitic mass] 30.4 pg Normal 25.9-34.0 [facility] Comment on above: Performed By: #### C BC #### [facility] [address] [place] [address] Dr. Gloria Coffman MCHC (RBC) [Mass/Vol] 32.9 g/dL Normal 29.9-35.2 [facility] Comment on above: Performed By: #### C BC #### [facility] [address] [place] [address] Dr. Gloria Coffman MCV (RBC) [Entitic vol] 92.6 fL Normal 80.0-94.0 [facility] Comment on above: Performed By: #### C BC #### [facility] [address] [place] [address] Dr. Gloria Coffman MONO # 0.4 103/ul Normal 0.3-0.8 [facility] Comment on above: Performed By: #### C BC #### [facility] [address] [address] [address] Gloria Coffman Monocytes/100 WBC (Bld) 4.0 % Normal 1.7-12.0 [facility] Comment on above: Performed By: #### C BC #### [facility] [address] [address] [address] Gloria Coffman NEUT # 9.3 103/ul Critically high 1.4-6.5 [facility] Comment on above: Performed By: #### C BC #### [facility] [address] [address] [address] Gloria Coffman Neutrophils/100 WBC (Bld) 88.4 % Critically high 43.0-75.0 [facility] Comment on above: Performed By: #### C BC #### [facility] [address] [address] [address] Gloria Coffman Platelet mean volume (Bld) [Entitic vol] 12.4 fL Normal 9.5-13.5 [facility] Comment on above: Performed By: #### C BC #### [facility] [address] [address] [address] Gloria Coffman PLT 133 103/ul Critically low 150-[address] [facility] Comment on above: Performed By: #### C BC #### [facility] [address] [address] [address] Gloria Coffman RBC 4.47 106/ul Critically low 4.70-6.10 [facility] Comment on above: Performed By: #### C BC #### [facility] [address] [address] [address] Gloria Coffman WBC 10.5 103/ul Normal 4.0-11.0 [facility] Comment on above: Performed By: #### C BC #### [facility] [address] [address] [address] Gloria Coffman CTA NECK WO W [...] by: JEANNE WAITE Date: 2021-10-14 09:38 Normal [facility] ECHOCARDIO M/2D COMPLETEon 0 10-14-2021 ECHOCARDIO M/2D COMPLETE Patient: JOHNATHON VIRGEN Exam Date: 10/14/2021 : 1970 Gender:M Ordering : DR MISTY WELLS . Admission #: [id number] Family : Order #: [id number] CLICK HERE TO VIEW EXAM ECHOCARDIOGRAM REPORT [...] Area(A4C): 16.90 cm2 Left Atrium Systolic Volume(A2C): 72388 mm3 Left Atrium Systolic Volume(A4C): 93416 mm3 Mitral Valve MV E to A Ratio: 1.20 Deceleration Fergus: 4200 mm/s2 Mitral Valve A-Wave Peak Velocity: [...] Ziegler M.D. on 10/15/2021 at 18:05 Normal [facility] MRI BRAIN WO CONon 2 MRI [...] JEANNE WAITE Date: 2021-10-14 12:05 Normal [facility] PROF 14(COMP METB)on 022 Albumin [Mass/Vol] 3.9 g/dL Normal 3.4-5.0 [facility] Comment on above: Performed By: #### C MP #### [facility] [address] [place] [address] Dr. Gloria Coffman Albumin/Globulin [Mass ratio] 1.1 {ratio} Normal [facility] Comment on above: Performed By: #### C MP #### [facility] [address] [place] [address] Dr. Gloria Coffman ALP [Catalytic activity/Vol] 54 U/L Normal 46-116 [facility] Comment on above: Performed By: #### C MP #### [facility] [address] [place] [address] Dr. Gloria Coffman ALT [Catalytic activity/Vol] 29 U/L Normal 16-63 [facility] Comment on above: Performed By: #### C MP #### [facility] [address] [place] [address] Dr. Gloria Coffman Anion gap [Moles/Vol] 14.1 mmol/L Normal Th [facility] Comment on above: Performed By: #### C MP #### [facility] [address] [place] [address] Dr. Gloria Coffman AST [Catalytic activity/Vol] 7 U/L Critically low 15-37 [facility] Comment on above: Performed By: #### C MP #### [facility] [address] [address] [address] Gloria Coffman Bilirubin [Mass/Vol] 0.5 mg/dL Normal 0.2-1.0 [facility] Comment on above: Performed By: #### C MP #### [facility] [address] [place] [address] Dr. Gloria Coffman Calcium [Mass/Vol] 8.8 mg/dL Normal 8.5-10.1 [facility] Comment on above: Performed By: #### C MP #### [facility] [address] [place] [address] Dr. Gloria Coffman Chloride [Moles/Vol] 106 mmol/L Normal 98-107 [facility] Comment on above: Performed By: #### C MP #### [facility] [address] [place] [address] Dr. Gloria Coffman CO2 [Moles/Vol] 24.8 mmol/L Normal 21.0-32.0 [facility] Comment on above: Performed By: #### C MP #### [facility] [address] [place] [address] Dr. Gloria Coffman Creatinine [Mass/Vol] 0.88 mg/dL Normal 0.70-1.30 [facility] Comment on above: Performed By: #### C MP #### [facility] [address] [place] [address] Dr. Gloria Coffman EGFR-AF SWEDISH >60 Normal >=60 [facility] Comment on above: Performed By: #### C MP #### [facility] [address] [place] [address] Dr. Gloria Coffman EGFR-NON AF SWEDISH >60 Normal >=60 [facility] Comment on above: Performed By: #### C MP #### [facility] [address] [address] [address] Gloria Coffman Globulin (S) [Mass/Vol] 3.5 g/dL Normal [facility] Comment on above: Performed By: #### C MP #### [facility] [address] [address] [address] Gloria Coffman Glucose [Mass/Vol] 156 mg/dL Critically high 74-106 [facility] Comment on above: Performed By: #### C MP #### [facility] [address] [address] [address] Gloria Coffman Potassium [Moles/Vol] 3.9 mmol/L Normal 3.5-5.1 [facility] Comment on above: Performed By: #### C MP #### [facility] [address] [place] [address] Dr. Gloria Coffman Protein [Mass/Vol] 7.4 g/dL Normal 6.4-8.2 [facility] Comment on above: Performed By: #### C MP #### [facility] [address] [address] [address] Gloria Coffman Sodium [Moles/Vol] 141 mmol/L Normal 136-145 [facility] Comment on above: Performed By: #### C MP #### [facility] [address] [place] [address] Dr. Gloria Coffman Urea nitrogen [Mass/Vol] 15.0 mg/dL Normal 7.0-18.0 [facility] Comment on above: Performed By: #### C MP #### [facility] [address] [address] [address] Gloria Coffman Urea nitrogen/Creatinine [Mass ratio] 17.0 mg/mg Normal [facility] Comment on above: Performed By: #### C MP #### [facility] [address] [address] [address] Gloria Coffman CBC W MANUAL DIFFon 10-14-19 22 ATYPICAL LYMPH # Normal [facility] Comment on above: Performed By: #### C BCMAN #### [facility] [address] [place] [address] Dr. Gloria Coffman ATYPICAL LYMPH % Normal [facility] Comment on above: Performed By: #### C BCMAN #### [facility] [address] [place] [address] Dr. Gloria Coffman BAND # Normal 0.0-0.3 [facility] Comment on above: Performed By: #### C BCMAN #### [facility] [address] [place] [address] Dr. Gloria Coffman BAND % Normal 0-5 [facility] Comment on above: Performed By: #### C BCOCTAVIO #### [facility] [address] [place] [address] Dr. Gloria oCffman BASOM # 0.18 103/ul Critically high 0.00-0.10 [facility] Comment on above: Performed By: #### C EILEEN #### [facility] [address] [place] [address] Dr. Gloria Coffman BASOM % 2.0 % Normal 0.2-2.0 [facility] Comment on above: Performed By: #### C EILEEN #### [facility] [address] [place] [address] Dr. Gloria Coffman BLAST # Normal [facility] Comment on above: Performed By: #### C EILEEN #### [facility] [address] [place] [address] Dr. Gloria Coffman BLAST % Normal [facility] Comment on above: Performed By: #### C EILEEN #### [facility] [address] [place] [address] Dr. Gloria Coffman CORRECTED WBC Normal 4.0-11.0 The [facility] Comment on above: Performed By: #### C EILEEN #### [facility] [address] [place] [address] Dr. Gloria Coffman EOS # 0.00 103/ul Normal 0.00-0.70 [facility] Comment on above: Performed By: #### C EILEEN #### [facility] [address] [place] [address] Dr. Gloria Coffman EOS% 0.0 % Critically low 0.9-7.[address] [facility] Comment on above: Performed By: #### Dorinda ARELLANO #### [facility] [address] [place] [address] Dr. Gloria Coffman HCT 41.8 % Critically low 42.0-54.[address] [facility] Comment on above: Performed By: #### C EILEEN #### [facility] [address] [address] [address] Gloria Coffman HGB 13.6 g/dl Critically low 14.0-18.[address] [facility] Comment on above: Performed By: #### Dorinda ARELLANO #### [facility] [address] [place] [address] Dr. Gloria Coffman LYMPHM # 0.27 103/ul Critically low 1.20-3.80 [facility] Comment on above: Performed By: #### Dorinda ARELLANO #### [facility] [address] [place] [address] Dr. Gloira Coffman LYMPHM% 3.0 % Critically low 20.5-60.[address] [facility] Comment on above: Performed By: #### Dorinda ARELLANO #### [facility] [address] [place] [address] Dr. Gloria Coffman MCH 30.0 pg Normal 25.9-34.0 [facility] Comment on above: Performed By: #### Dorinda ARELLANO #### [facility] [address] [place] [address] Dr. Gloria Coffman MCHC 32.5 g/dl Normal 29.9-35.2 [facility] Comment on above: Performed By: #### C EILEEN #### [facility] [address] [place] [address] Dr. Gloria Coffman MCV 92.3 fL Normal 80.0-94.0 [facility] Comment on above: Performed By: #### C EILEEN #### [facility] [address] [place] [address] Dr. Gloria Coffman METAMYELOCYTE # Normal [facility] Comment on above: Performed By: #### C EILEEN #### [facility] [address] [place] [address] Dr. Gloria Coffman METAMYELOCYTE % Normal [facility] Comment on above: Performed By: #### C EILEEN #### [facility] [address] [place] [address] Dr. Gloria Coffman MONOM# 0.00 103/ul Critically low 0.30-0.80 [facility] Comment on above: Performed By: #### C EILEEN #### [facility] [address] [place] [address] Dr. Gloria Coffman MONOM% 0.0 % Critically low 1.7-12.[address] [facility] Comment on above: Performed By: #### C EILEEN #### [facility] [address] [place] [address] Dr. Gloria Coffman MPV 10.5 fL Normal 9.5-13.5 [facility] Comment on above: Performed By: #### C EILEEN #### [facility] [address] [place] [address] Dr. Gloria Coffman MYELOCYTE # Normal [facility] Comment on above: Performed By: #### C EILEEN #### [facility] [address] [place] [address] Dr. Gloria Coffman MYELOCYTE % Normal [facility] Comment on above: Performed By: #### C EILEEN #### [facility] [address] [place] [address] Dr. Gloria Coffman NRBC Normal [facility] Comment on above: Performed By: #### C EILEEN #### [facility] [address] [place] [address] Dr. Gloria Coffman PLT 245 103/ul Normal 150-450 [facility] Comment on above: Performed By: #### C EILEEN #### [facility] [address] [place] [address] Dr. Gloria Coffman RBC 4.53 106/ul Critically low 4.70-6.10 [facility] Comment on above: Performed By: #### C EILEEN #### [facility] [address] [address] [address] Gloria Coffman RDW 13.2 % Normal 11.0-15.0 [facility] Comment on above: Performed By: #### C EILEEN #### [facility] [address] [place], [place] [address] Dr. Gloria Coffman SEG # 8.46 103/ul Critically high 1.40-6.50 [facility] Comment on above: Performed By: #### C EILEEN #### [facility] [address] [id number] Gloria Coffman SEG % 95.0 % Critically high 43.0-75.0 [facility] Comment on above: Performed By: #### C EILEEN #### [facility] [address] [address] [address] Gloria Coffman WBC 8.9 103/ul Normal 4.0-11.0 [facility] Comment on above: Performed By: #### Dorinda ARELLANO #### [facility] [id number] Gloria Cofmfan Covid-19 PCR ([facility])on 10-02 SARS-CoV-2 (COVID-19) RNA LANE+probe Ql (Unsp spec) Not detected Normal NOT DETECTED [facility] Comment on above: Result Comment: When diagnostic [...] for this test is supported by the [place] of [employer] and Human Service's declaration that [...] used). Performed By: #### C VDTBH #### [facility] [address] [address] [address] Gloria Coffman ETHANOL (BLD ALC)on 10-14-19 22 ALC NOTE NOTE: 80 mg/dl is the legal limit for a blood alcohol level Normal [facility] Comment on above: Performed By: #### E TH #### [facility] [address] [address] [address] Gloria Coffman Ethanol [Mass/Vol] mg/dL Normal [facility] Comment on above: Performed By: #### E TH #### [facility] [address] [address] [address] Gloria Coffman PROF 14(COMP METB)on 022 Albumin [Mass/Vol] 4.0 g/dL Normal 3.4-5.0 [facility] Comment on above: Performed By: #### C MP ####[facility] [address] [address]DrJenna Coffman Albumin/Globulin [Mass ratio] 1.1 {ratio} Normal [facility] Comment on above: Performed By: #### C MP ####[facility] [address] [address]Dr. Gloria Coffman ALP [Catalytic activity/Vol] 60 U/L Normal 46-116 [facility] Comment on above: Performed By: #### C MP ####[facility] [address] [address]Dr. Gloria Coffman ALT [Catalytic activity/Vol] 35 U/L Normal 16-63 [facility] Comment on above: Performed By: #### C MP ####[facility] [address] [phone] Coffman Anion gap [Moles/Vol] 14.6 mmol/L Normal [facility] Comment on above: Performed By: #### C MP ####[facility] [address] [address]DrJenna Coffman AST [Catalytic activity/Vol] 11 U/L Critically low 15-37 [facility] Comment on above: Performed By: #### C MP ####[facility] [address] [address]Dr. Gloria Coffman Bilirubin [Mass/Vol] 0.6 mg/dL Normal 0.2-1.0 [facility] Comment on above: Performed By: #### C MP ####[facility] [address] [address]Dr. Gloria Coffman Calcium [Mass/Vol] 9.2 mg/dL Normal 8.5-10.1 [facility] Comment on above: Performed By: #### C MP ####[facility] [address] [place], [place] [address]Dr. Gloria Coffman Chloride [Moles/Vol] 104 mmol/L Normal 98-107 [facility] Comment on above: Performed By: #### C MP ####[facility] [address] [place], [place] [address]Dr. Gloria Coffman CO2 [Moles/Vol] 27.1 mmol/L Normal 21.0-32.0 [facility] Comment on above: Performed By: #### C MP ####[facility] [address] [place], [place] [address]Dr. Gloria Coffman Creatinine [Mass/Vol] 0.98 mg/dL Normal 0.70-1.30 [facility] Comment on above: Performed By: #### C MP ####[facility] [address] [place], [place] [address]Dr. Gloria Coffman EGFR-AF SWEDISH >60 Normal >=60 [facility] Comment on above: Performed By: #### C MP ####[facility] [address] [place], [place] [address]Dr. Gloria Coffman EGFR-NON AF SWEDISH >60 Normal >=60 [facility] Comment on above: Performed By: #### C MP ####[facility] [address] [place], [place] [address]Dr. Pilichristopher Augustus Globulin (S) [Mass/Vol] 3.6 g/dL Normal [facility] Comment on above: Performed By: #### C MP ####[facility] [address] [address]Dr. Gloria Coffman Glucose [Mass/Vol] 151 mg/dL Critically high 74-106 [facility] Comment on above: Performed By: #### C MP ####[facility] [address] [address]Dr. Pilichristopher Coffman Potassium [Moles/Vol] 4.7 mmol/L Normal 3.5-5.1 [facility] Comment on above: Performed By: #### C MP ####[facility] [address] [address]Dr. Gloria Coffman Protein [Mass/Vol] 7.6 g/dL Normal 6.4-8.2 [facility] Comment on above: Performed By: #### C MP ####[facility] [address] [place], [place] [address]Dr. Gloria Coffman Sodium [Moles/Vol] 141 mmol/L Normal 136-145 [facility] Comment on above: Performed By: #### C MP ####[facility] [address] [place], [place] [address]Dr. Gloria Augustus Urea nitrogen [Mass/Vol] 16.0 mg/dL Normal 7.0-18.0 [facility] Comment on above: Performed By: #### C MP ####[facility] [address] [place], [place] [address]Dr. Gloria Coffman Urea nitrogen/Creatinine [Mass ratio] 16.3 mg/mg Normal [facility] Comment on above: Performed By: #### C MP ####[facility] Q[address] [place], [place] [address]Dr. Gloria Coffman CBC AUTO DIFFon 10-12-2021 BASO # 0.0 103/ul Normal 0.0-0.1 [facility] Comment on above: Performed By: #### C BC ####[facility] [address] [place], [place] [address]Dr. Gloria Coffman Basophils/100 WBC (Bld) 0.3 % Normal 0.2-2.0 [facility] Comment on above: Performed By: #### C BC ####[facility] [address] [address]Dr. Gloria Coffman EO # 0.1 103/ul Normal 0.0-0.7 [facility] Comment on above: Performed By: #### C BC ####[facility] [address] [place], [place] [address]DrJenna Pilichristopher Coffman Eosinophils/100 WBC (Bld) 1.5 % Normal 0.9-7.0 [facility] Comment on above: Performed By: #### C BC ####[facility] S[address] [place], [place] [address]Dr. Pilichristopher Coffman Erythrocyte distribution width (RBC) [Ratio] 13.2 % Normal 11.0-15.0 [facility] Comment on above: Performed By: #### C BC ####[facility] [address] [place], [place] [address]Dr. Pilichristopher Coffman Hematocrit (Bld) [Volume fraction] 41.5 % Critically low 42.0-54.0 [facility] Comment on above: Performed By: #### C BC ####[facility] [address] [place], [place] [address]Dr. Gloria Coffman Hemoglobin (Bld) [Mass/Vol] 13.8 g/dL Critically low 14.0-18.0 [facility] Comment on above: Performed By: #### C BC ####[facility] [address] [place], [place] [address]Dr. Pilichristopher Coffman IG # 0.03 10e3/ul Normal 0.00-0.03 [facility] Comment on above: Performed By: #### C BC ####[facility] [address] [place], [place] [address]Dr. Pilichristopher Coffman IG % 0.3 % Normal 0.0-0.5 [facility] Comment on above: Performed By: #### C BC ####[facility] [address] [place], [place] [address]DrJenna Coffman LYMPH # 1.2 103/ul Normal 1.2-3.8 [facility] Comment on above: Performed By: #### C BC ####[facility] [address] [id number]. Pilichristopher Coffman Lymphocytes/100 WBC (Bld) 12.3 % Critically low 20.5-60.0 [facility] Comment on above: Performed By: #### C BC ####[facility] [address] [phone] Coffman MANUAL DIFF REQ NO Normal [facility] Comment on above: Performed By: #### C BC ####[facility] [address] [phone]. Gloria Coffman MCH (RBC) [Entitic mass] 30.1 pg Normal 25.9-34.0 [facility] Comment on above: Performed By: #### C BC ####[facility] [address] [address]Dr. Gloria Coffman MCHC (RBC) [Mass/Vol] 33.3 g/dL Normal 29.9-35.2 [facility] Comment on above: Performed By: #### C BC ####[facility] [address] [phone] Coffman MCV (RBC) [Entitic vol] 90.6 fL Normal 80.0-94.0 [facility] Comment on above: Performed By: #### C BC ####[facility] [address] [phone] Coffman MONO # 0.7 103/ul Normal 0.3-0.8 [facility] Comment on above: Performed By: #### C BC ####[facility] [address] [phone] Coffman Monocytes/100 WBC (Bld) 7.5 % Normal 1.7-12.0 [facility] Comment on above: Performed By: #### C BC ####[facility] [address] [phone] Coffman NEUT # 7.5 103/ul Critically high 1.4-6.5 [facility] Comment on above: Performed By: #### C BC ####[facility] [address] [phone]. Gloria Coffman Neutrophils/100 WBC (Bld) 78.1 % Critically high 43.0-75.0 [facility] Comment on above: Performed By: #### C BC ####[facility] [address] [phone]. Gloria Coffman Platelet mean volume (Bld) [Entitic vol] 10.2 fL Normal 9.5-13.5 [facility] Comment on above: Performed By: #### C BC ####[facility] [address] [phone]. Gloria Coffman PLT 243 103/ul Normal 150-450 [facility] Comment on above: Performed By: #### C BC ####[facility] [address] [phone]. Gloria Coffman RBC 4.58 106/ul Critically low 4.70-6.10 [facility] Comment on above: Performed By: #### C BC ####[facility] [address] [phone]. Gloria Coffman WBC 9.6 103/ul Normal 4.0-11.0 [facility] Comment on above: Performed By: #### C BC ####[facility] [phone]. Gloria Coffman CT STROKE HEAD WOon 10-13-19 [...] GAVIN ALBERT Date: 2021-10-12 18:35 Normal [facility] CTA HEAD WO W CONon 10-13-19 22 CTA HEAD WO W CON EXAMINATION: CTA HEAD WO W CON HISTORY: Acute headache COMPARISON: None. TECHNIQUE: Contrast enhanced neck CT arteriogram was performed. Scanning performed during the arterial phase through the [place] [facility] [place]. 3D reconstructions were rendered on [...] the basilar artery. Basilar artery: Normal. manager solution: Normal bilaterally. Aneurysm: None. Dural venous sinuses: [...] SUJATHA العلي Date: 2021-10-12 19:28 Normal [facility] POINT OF CARE GLUCOSEon 10-02 Glucose [Mass/Vol] 104 mg/dL Normal 74-106 [facility] Comment on above: Performed By: #### P OCGLUC #### [facility] [address] [address] [address] Gloria Coffman PROF 14(COMP METB)on 022 Albumin [Mass/Vol] 4.1 g/dL Normal 3.4-5.0 [facility] Comment on above: Performed By: #### C MP #### [facility] [address] [address] [address] Gloria Coffman Albumin/Globulin [Mass ratio] 1.2 {ratio} Normal [facility] Comment on above: Performed By: #### C MP #### [facility] [address] [address] [address] Gloria Coffman ALP [Catalytic activity/Vol] 63 U/L Normal 46-116 [facility] Comment on above: Performed By: #### C MP #### [facility] [address] [address] [address] Gloria Coffman ALT [Catalytic activity/Vol] 39 U/L Normal 16-63 [facility] Comment on above: Performed By: #### C MP #### [facility] [address] [place] [address] Dr. Gloria Coffman Anion gap [Moles/Vol] 13.4 mmol/L Normal [facility] Comment on above: Performed By: #### C MP #### [facility] [address] [place] [address] Dr. Gloria Coffman AST [Catalytic activity/Vol] 15 U/L Normal 15-37 [facility] Comment on above: Performed By: #### C MP #### [facility] [address] [place] [address] Dr. Gloria Coffman Bilirubin [Mass/Vol] 0.4 mg/dL Normal 0.2-1.0 [facility] Comment on above: Performed By: #### C MP #### [facility] [address] [address] [address] Gloria Coffman Calcium [Mass/Vol] 9.2 mg/dL Normal 8.5-10.1 [facility] Comment on above: Performed By: #### C MP #### [facility] [address] [address] [address] Gloria Coffman Chloride [Moles/Vol] 105 mmol/L Normal 98-107 [facility] Comment on above: Performed By: #### C MP #### [facility] [address] [place] [address] Dr. Gloria Coffman CO2 [Moles/Vol] 26.7 mmol/L Normal 21.0-32.0 [facility] Comment on above: Performed By: #### C MP #### [facility] [address] [address] [address] Gloria Coffman Creatinine [Mass/Vol] 1.05 mg/dL Normal 0.70-1.30 [facility] Comment on above: Performed By: #### C MP #### [facility] [address] [address] [address] Gloria Coffman EGFR-AF SWEDISH >60 Normal >=60 [facility] Comment on above: Performed By: #### C MP #### [facility] [address] [address] [address] Gloria Coffman EGFR-NON AF SWEDISH >60 Normal >=60 [facility] Comment on above: Performed By: #### C MP #### [place] [facility] [address] [address] [address] Gloria Coffman Globulin (S) [Mass/Vol] 3.4 g/dL Normal [facility] Comment on above: Performed By: #### C MP #### [facility] [address] [address] [address] Gloria Coffman Glucose [Mass/Vol] 102 mg/dL Normal 74-106 [facility] Comment on above: Performed By: #### C MP #### [facility] [address] [address] [address] Gloria Coffman Potassium [Moles/Vol] 4.1 mmol/L Normal 3.5-5.1 [facility] Comment on above: Performed By: #### C MP #### [facility] [address] [address] [address] Gloria Coffman Protein [Mass/Vol] 7.5 g/dL Normal 6.4-8.2 [facility] Comment on above: Performed By: #### C MP #### [facility] [address] [address] [address] Gloria Coffman Sodium [Moles/Vol] 141 mmol/L Normal 136-145 [facility] Comment on above: Performed By: #### C MP #### [facility] [address], [place] [address] Dr. Gloria Coffman Urea nitrogen [Mass/Vol] 18.0 mg/dL Normal 7.0-18.0 [facility] Comment on above: Performed By: #### C MP #### [facility] [address], [place] [address] Dr. Gloria Coffman Urea nitrogen/Creatinine [Mass ratio] 17.1 mg/mg Normal [facility] Comment on above: Performed By: #### C MP #### [facility] [address], [place] [address] Dr. Gloria Coffman Covid-19 PCR ([facility])on SARS-CoV-2 (COVID-19) RNA LANE+probe Ql (Unsp spec) Detected Critically abnormal NOT DETECTED [facility] Comment on above: Result Comment: This test is not yet approved or cleared by the [place] FDA. When there are no FDA-approved or cleared tests available, and other criteria are met, FDA can make tests available under an emergency access mechanism called an Emergency Use Authorization (EUA). The EUA for this test is supported by the [place] of Health and Human Service's (HHS's) declaration [...] be used). Performed By: #### C VDTB ####[facility] [address] [place], [place] [address]DkDr. Gloria Coffman Vital Signs Date Time Vital Sign Value Performing Clinician Facility 05-21-2023 15:15-0500 Diastolic blood pressure 86 mm[Hg] MD Misty Wells Work Phone: [facility] 05-21-2023 15:15-0500 Heart rate 85 /min MD Misty Wells Work Phone: [facility] 05-21-2023 15:15-0500 Respiratory rate 16 /min MD Misty Wells Work Phone: [facility] 05-21-2023 15:15-0500 SaO2% (BldA) [Mass fraction] 100 % MD Misty Wells Work Phone: [facility] 05-21-2023 15:15-0500 Systolic blood pressure 132 mm[Hg] MD Misty Wells Work Phone: [facility] 05-21-2023 14:17-0500 Body temperature 98 [degF] MD Misty Wells Work Phone: [facility] 05-21-2023 13:47-0500 Inhaled oxygen flow rate 10 L/min MD Misty Wells Work Phone: [facility] 05-21-2023 12:39-0500 Body height 177.8 cm MD Misty Wells Work Phone: [facility] 05-21-2023 12:39-0500 Body mass index (BMI) [Ratio] 30.7 kg/m2 MD Misty Wells Work Phone: [facility] 05-21-2023 12:39-0500 Body weight 97 kg MD Misty Wells Work Phone: [facility] 05-11-2023 08:15-0500 Body height 177.8 cm Bruce Galvan Other [facility] Other 05-11-2023 08:15-0500 Body mass index (BMI) [Ratio] 27.98 kg/m2 Bruce Galvan Other [facility] Other 05-11-2023 08:15-0500 Body weight 88.45 kg Bruce Galvan Other [facility] Other 04-06-2023 08:00-0500 Body height 177.8 cm Montse Rosario Other [facility] Other 04-06-2023 08:00-0500 Body mass index (BMI) [Ratio] 27.98 kg/m2 Montse Gallegosarney Other [facility] Other 04-06-2023 08:00-0500 Body weight 88.45 kg Montse Rosario Other [facility] Other 03-02-2023 08:15-0400 Body height 177.8 cm Bruce Nagyley Other [facility] Other 03-02-2023 08:15-0400 Body mass index (BMI) [Ratio] 27.98 kg/m2 Bruce Latrice Other [facility] Other 03-02-2023 08:15-0400 Body weight 88.45 kg Bruce Latrice Other [facility] Other 02-23-2023 11:00-0400 Body height 177.8 cm Bruce Galvan Other [facility] Other 02-23-2023 11:00-0400 Body mass index (BMI) [Ratio] 27.98 kg/m2 Bruce Nagyley Other [facility] Other 02-23-2023 11:00-0400 Body weight 88.45 kg Bruce Latrice Other [facility] Other Encounters Encounter Date Encounter Type Care Provider Facility Start: 08-17-2023 End: 08-18-2023 ambulatory [facility] Facility[facility] Start: 08-12-2023 End: 08-12-2023 ambulatory [facility] Work Phone: Start: 08-12-2023 End: 08-12-2023 Patient encounter procedure [facility] Work Phone: Start: 07-01-2023 End: 07-01-2023 Patient encounter procedure [facility] Work Phone: Start: 06-01-2023 End: 06-01-2023 ambulatory Bruce Galvan Other [facility] Other Start: 06-01-2023 Postop follow up vis it related to original px Bruce Galvan [facility] Start: 05-21-2023 End: 05-21-2023 ambulatory Bruce Galvan Facility:[facility] Start: 05-21-2023 Non-patient / Non-visit MD Quinn Wells Work Phone: [facility] Work Phone: Start: 05-13-2023 End: 05-13-2023 ambulatory Bruce Galvan Facility:[facility] Start: 05-13-2023 End: 05-13-2023 ambulatory MD Misty Wells Work Phone: [facility] Work Phone: Start: 05-13-2023 End: 05-13-2023 Patient encounter procedure MD Misty Wells Work Phone: [facility] Work Phone: Start: 05-11-2023 End: 05-11-2023 ambulatory Bruce Galvan Other [facility] Other Start: 05-11-2023 Encounter for other preprocedural examination Bruce Galvan [facility] Start: 05-11-2023 Office outpatient vi sit 25 minutes Bruce Galvan [facility] Start: 04-06-2023 End: 04-06-2023 ambulatory Montse Rosario Other [facility] Other Start: 04-06-2023 Office outpatient vi sit 15 minutes Montse Rosario [facility] Start: 03-02-2023 End: 03-02-2023 ambulatory Bruce Galvan Other [employer] [facility] [employer] Other Start: 03-02-2023 Office outpatient vi sit 25 minutes Bruce Galvan [facility] Start: 02-26-2023 End: 02-26-2023 ambulatory Bruce Galvan Facility:[facility] Start: 02-26-2023 End: 02-26-2023 ambulatory MD Misty Wells Work Phone: [facility] Work Phone: Start: 02-26-2023 End: 02-26-2023 Patient encounter procedure MD Misty Wells Work Phone: [facility] Work Phone: Start: 02-23-2023 Office outpatient ne w 45 minutes Bruce Galvan [facility] Start: 02-23-2023 End: 02-23-2023 ambulatory MD Misty Wells Work Phone: [facility] Other Start: 02-23-2023 End: 02-23-2023 Patient encounter procedure MD Misty Wells Work Phone: [facility] Start: 10-31-2022 End: 11-01-2022 ambulatory Aranza BASILIO Facility:[facility] Start: 10-13-2021 End: 10-14-2021 Evaluation [...] Date Care Activity Detail Author Start: 05-21-2023 [facility] Start: 05-21-2023 [facility] Patient referral [facility] Work Phone: Immunizations Immunization Date Immunization Notes Care Provider Fa cili 08-14-2020 COVID-19 mRNA Comirtorsten (Pfizer) MD Misty Wells Work Phone: [facility] 07-23-2020 COVID-19 mRNATateirtorsten (Pfizer) MD Misty Wells Work Phone: [facility] Payers Date Payer Category Payer Self-pay 2023 Unknown [id number] 1970 Unknown [id number] 1970 Unknown [id number] 1970 Unknown [id number] 1959 Unknown [id number] Unknown [facility] [id number] Unknown [id number] Unknown [id number] Unknown [id number] Unknown [id number] Social History Date Type Detail Facility Sex Assigned At [facility] Other Start: 1970 Sex Assigned At Male [facility] Start: 05-13-2023 End: 05-21-2023 Tobacco smoking status NHIS Never smoked tobacco (finding) [facility] Evaluation note 06-01-2023 Note Date & Type [...] back in about 4 weeks for recheck [facility] Other Evaluation note 05-11-2023 Note Date & [...] poor healing. 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 I have [...] M25.562) May, Preop examination (ICD-10 - Z01.818) [facility] Other Evaluation note 04-06-2023 Note Date & [...] in the office today and providing supervision. [facility] Other Evaluation note 03-02-2023 Note Date & [...] pain of left knee (ICD-10 - M25.562) [facility] Other Evaluation note 02-23-2023 Note Date & [...] MRI is completed. 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 [facility] Other Evaluation note Note Date & Type Note Facility Evaluation note No assessment information availa ble [facility] Work Phone: Evaluation note Note Date & Type Note Facility Evaluation note Diagnosis Onset Date Other specified postprocedural states acute Tear of medial meniscus of left knee acute Other specified postprocedural states acute Tear of medial meniscus of left knee acute [facility] Work Phone: History general Narrative - Reported Note Date & Type Note Facility History general Narrative - Reported Type Medical History hypertensive heart disease Medical History Gout Medical History hypercholesterolemia Surgical History ORIF R ANKLE 2001 Hospitalization History VERTIGO 2021 [facility] Other Hospital Discharge instructions Note Date & [...] prescribed. You may take Tylenol or ibuprofen abvv-nlu-xplpnjf as instructed. You should take aspirin 81 mg twice daily for 3 weeks for DVT prophylaxis. If you have any increasing pain, fever chills, or abnormal drainage or surgical wound problems you should call the office. Your follow-up should be scheduled with Dr. Galvan's office at [facility]. Please call to confirm your follow-up appointment. Dr[facility] [address] [place], [place] [address] [facility] Work Phone: Summary Purpose Family History [...] and content) DATE CREATED AUTHOR 02/02/2022 [facility] DATE CREATED AUTHOR AUTHOR'S ORGANIZ ATION 06/11/2023 [facility] DATE CREATED AUTHOR AUTHOR'S ORGANIZ ATION 08/18/2023 [facility] REASON FOR VISIT (unrecogniz ed section and [...] BE BASED ON THE PRIMARY CLINICAL RECORDS. [facility] [employer] [facility]. provides no warranty or guarantee of the accuracy or completeness of information in this document.
[2024-02-05 09:28] LABS: Free T3 2.13 pg/mL (2.18-3.98); Thyroid Stimulating Hormone 0.032 uIU/mL (0.358-3.740)
== END 2024-02-05 07:58 | disposition home or self-care (01) ==
LOC: LAB 07:58
PROVIDERS: PCP Family Medicine; Visit Provider Family Medicine
DX: Z00.00 Encounter for general adult medical examination without abnormal findings (principal); E03.9 Hypothyroidism, unspecified
CPT/HCPCS: 36415; 80053; 80061; 83036; 83525; 84436; 84443; 84481; 84550; G0103

== ENCOUNTER 2024-12-13 06:38 | Outpatient (OUT) | payer OTHER, SELFPAY ==
--- OUTSIDE RECORDS SUMMARY | 2024-09-19 13:30 | XMS_ITS ---
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 Role Phone Marvin Wells Primary Care Provider [phone] Allergies No Known Allergies REASON FOR VISIT sore throat productive cough- brown green color- wheezing- head pressure- worse at night- ongoing since Medications Medication SIG (Take, Route, Frequency, Duration) Notes Start Date End Date Status Ferrous Gluconate 324 (38 Fe) MG 1 tablet Orally bid for 30 days 02/09/2024 Active Simvastatin 20 MG TAKE 1 TABLET BY ODELL TH EVERY DAY IN THE EVENING 30 DAYS for 90 days Active Metoprolol Tartrate 50 MG TAKE 1 TABLET BY MOUTH TWICE A DAY for 90 days Active Lisinopril 20 MG TAKE 1 TABLET BY ODELL TH EVERY DAY FOR 30 DAYS for 90 days Active Levothyroxine Sodium 100 MCG TAKE 1 TABL ET BY MOUTH EVERY DAY IN THE MORNING ON EMPTY STOMACH FOR 30 DAYS for 90 days Active Diclofenac Sodium 75 MG 1 tablet as need ed Orally Twice a day for 90 days 01/01/2024 Active Aspirin 325 MG 1 tablet Orally Once a day for 90 days Active Allopurinol 100 MG TAKE 1 TABLET BY ODELL TH EVERY DAY FOR 30 DAYS for 90 days Active Amoxicillin-Pot Clavulanate 875-125 MG 1 tablet Orally every 12 hrs for 10 days 09/19/2024 Active Social History Tobacco Use: Social History Observation Description Date Details (start date - stop date) Never Smoker NA - NA Tobacco Use/Smoking Question Answer Notes Patient is a nonsmoker Vital Signs Weight 205.8 lbs 09/19/2024 Height 70 in 09/19/2024 Blood pressure systolic 124 mm Hg 09/20/19 25 Blood pressure diastolic 82 mm Hg 025 Temperature 98.5 degrees Fahrenheit 09/20/19 25 BMI 29.53 kg/m2 09/19/2024 Encounters Encounter Location Date Provider Diagnosis [facility] [address] [place] [address] 09/19/2024 Marvin Hoy Acute bronchitis, unspecified organism J20.9 Assessments Encounter Date Diagnosis (ICD Code) Assessment Notes Treatment Notes Treatment Clinical Notes Section Notes 09/19/2024 Acute bronchitis, unspecified organism (ICD-10 - J20.9) Rest and drink more liquids, especially water. You may use a humidifier or vaporizer to help keep the drainage moist. Buzc-lpu-zaqxzns Nasal Saline may help the stuffy and runny nose. Use Ibuprofen and or Tylenol as needed for fever, chills, body aches or pain. Children 5 years old should not be given zrzf-gxc-qyvzyhd cough and cold medications such as guaifenesin and dextromethorphan. If you're over age 5, you may try mhuo-dcq-seouxwa cold medications such as guaifenesin and dextromethorphan, or multi-symptom cold reliever such as Dayquil to help reduce the symptoms. Antibiotics have been prescribed. You should take these until completed and follow the directions. Antibiotics can sometimes cause upset stomach, and in rare cases, serious allergic reactions or serious gastrointestinal problems. If you start having severe abdominal pain, severe vomiting, or bloody diarrhea, you should be reevaluated by your physician or urgent care immediately. Follow up with your Primary Care Provider or return to clinic if symptoms do not improve within 3-5 days. If you develop severe symptoms such as shortness of breath, repeated vomiting, coughing up blood, or chest pain you should go to the emergency room or call 911 Plan Of Treatment Medication Medication Name Sig Start Date Stop Date Notes Amoxicillin-Pot Clavulanate 875-125 MG 1 tablet Orally every 12 hrs for 10 days 09/19/2024 Treatment Notes Assessment Notes Acute bronchitis, unspecified organism R est and drink more liquids, especially water. You may use a humidifier or vaporizer to help keep the drainage moist. Peeo-mxt-kmubeen Nasal Saline may help the stuffy and runny nose. Use Ibuprofen and or Tylenol as needed for fever, chills, body aches or pain. Children 5 years old should not be given hylx-mrh-ahfnzro cough and cold medications such as guaifenesin and dextromethorphan. If you're over age 5, you may try lggq-aej-bsmnebn cold medications such as guaifenesin and dextromethorphan, or multi-symptom cold reliever such as Dayquil to help reduce the symptoms. Antibiotics have been prescribed. You should take these until completed and follow the directions. Antibiotics can sometimes cause upset stomach, and in rare cases, serious allergic reactions or serious gastrointestinal problems. If you start having severe abdominal pain, severe vomiting, or bloody diarrhea, you should be reevaluated by your physician or urgent care immediately. Follow up with your Primary Care Provider or return to clinic if symptoms do not improve within 3-5 days. If you develop severe symptoms such as shortness of breath, repeated vomiting, coughing up blood, or chest pain you should go to the emergency room or call 911 Next Appt Details Follow Up: 3-5 days if not i mproving, Reason: Progress Notes * Anthony LUDWIG LDOB:[birth year] (54 yo M)Acc No.[id number]:09/19/2024 Progress Note Patient: Anthony DORAN Provider: Raymond Wells ([facility])MD :1970 A ge:54 Y S ex:Male Date:09/19/2024 Address:[address] [place] [address] [id number] Check In:05:15 PM ESTCheck O ut:06:18 PM EST Subjective: * Chief Complaints: * s ore throat productive cough- brown green color- wheezing- head pressure- worse at night- ongoing since * HPI: B ronchitis: The patient complains of symptoms of bronchitis. The symptoms have been present for 1-2 days. The symptoms are moderate. The patient has not been exposed to sick contacts. Symptomatic treatment has included OTC medication. Associated symptoms include nasal congestion, postnasal drainage, congested ears, cough, fever, chills, body aches. * ROS: E NT: Ear pain d enies. H oarseness d enies. ? C ardiovascular: Edema d enies. P alpitations d enies. ? R espiratory: Comments S [facility] for details. G astrointestinal: Abdominal pain d enies. D iarrhea d enies. N ausea d enies. S kin: Rash d enies. * Active Problem List F40.240 Claustrophobia Modified On:11/07/2022 Status:confirmed E78.5 Hyperlipidemia Modified On:11/07/2022 Status:confirmed I10 Hypertension Modified On:11/07/2022 Status:confirmed F41.9 Anxiety Modified On:11/07/2022 Status:confirmed M25.50 Arthralgia Modified On:11/07/2022 Status:confirmed J30.9 Allergic rhinitis Modified On:11/07/2022 Status:confirmed F10.20 Alcoholism Modified On:11/07/2022 Status:confirmed F32.A Depression Modified On:11/07/2022 Status:confirmed Z00.00 Well adult Modified On:11/07/2022 Status:confirmed S83.242A Other tear of medial meniscus, current injury, left knee, initial encounter Modified On:07/02/2023 Status:confirmed E03.9 Hypothyroid Modified On:02/05/2024 Status:confirmed * Medical History: * Surgical History: S urgical Repair Rt. Tib/fib Arthroscopic medial plica excision, patellas chondroplasty- Dr. Pollard 4colonoscopy 03/14/24 * Hospitalization/Major Diagno stic Procedure: V ertigo * Family History: F ather: , Obesity, , alcoholism, diagnosed with Unspecified essential hypertension.?Mother: , Passed in late 30's of Brain Aneurysm. S ister(s): alive, 1 sister of Alcoholism, Brain Aneurysm. 2 sister(s) - healthy. 1 daughter(s) - healthy. . * Social History: T obacco Use: T obacco Use/Smoking P atient is a n onsmoker * Medications: T akingAllopurinol 100 MG Tablet TAKE 1 TABLET BY MOUTH EVERY DAY FOR 30 DAYS Aspirin 325 MG Tablet 1 tablet Orally Once a day Diclofenac Sodium 75 MG Tablet Delayed Release 1 tablet as needed Orally Twice a day Ferrous Gluconate 324 (38 Fe) MG Tablet 1 tablet Orally bid Levothyroxine Sodium 100 MCG Tablet TAKE 1 TABLET BY MOUTH EVERY DAY IN THE MORNING ON EMPTY STOMACH FOR 30 DAYS Lisinopril 20 MG Tablet TAKE 1 TABLET BY MOUTH EVERY DAY FOR 30 DAYS Metoprolol Tartrate 50 MG Tablet TAKE 1 TABLET BY MOUTH TWICE A DAY Simvastatin 20 MG Tablet TAKE 1 TABLET BY MOUTH EVERY DAY IN THE EVENING 30 DAYS Taking Allopurinol 100 MG Tablet TAKE 1 TABLET BY MOUTH EVERY DAY FOR 30 DAYS Taking Aspirin 325 MG Tablet 1 tablet Orally Once a day Taking Diclofenac Sodium 75 MG Tablet Delayed Release 1 tablet as needed Orally Twice a day Taking Ferrous Gluconate 324 (38 Fe) MG Tablet 1 tablet Orally bid Taking Levothyroxine Sodium 100 MCG Tablet TAKE 1 TABLET BY MOUTH EVERY DAY IN THE MORNING ON EMPTY STOMACH FOR 30 DAYS Taking Lisinopril 20 MG Tablet TAKE 1 TABLET BY MOUTH EVERY DAY FOR 30 DAYS Taking Metoprolol Tartrate 50 MG Tablet TAKE 1 TABLET BY MOUTH TWICE A DAY Taking Simvastatin 20 MG Tablet TAKE 1 TABLET BY MOUTH EVERY DAY IN THE EVENING 30 DAYS DiscontinuedAzithromycin 250 MG Tablet as directed Orally daily , Notes: take two tablets po on first day than take one tablet po days 2-5Medication List reviewed and reconciled with the patientDiscontinued Azithromycin 250 MG Tablet as directed Orally daily , Notes: take two tablets po on first day than take one tablet po days 2-5Medication List reviewed and reconciled with the patient * Allergies: N .K.D.A.no[Allergies Verified] Objective: * Vitals: W t:205.8lbs, Ht: 70 in, BP:124/82mm Hg, Temp:98.5F, BMI:29.53Index, Ht-cm: 177.8 cm, Wt-k.35 kg. * Examination: G eneral Examination: GENERAL APPEARANCE: in no acute distress. EYES: EOMI. EARS: auditory canal clear, middle ear effusion noted.? NOSE: clear discharge, turbinates pale and swollen. ORAL CAVITY: mucosa moist. THROAT: no erythema, post-nasal drainage noted. NECK: neck supple, no thyromegaly. LYMPH NODES: n o cervical adenopathy. LUNGS: unlabored, clear to auscultation bilaterally. CARDIO: n o murmurs, regular rate and rhythm. ABDOMEN: bowel sounds present, no organomegaly . ? Assessment: * Assessment: 1. A cute bronchitis, unspecified organism - J20.9 (Primary) Plan: * Treatment: * Procedure Codes: * Preventive Medicine: Screenings/Counseling: B ID ACTION PLAN Above Normal BMI Follow-up D ietary management education, guidance, and counseling * Follow Up: 3 -5 days if not improving * * Sign off status: Completed Visit Status: C HK (Check Out) true * Provider: Raymond Wells ([facility])MD Date: 0 09/19/2024 Generated for Martini kathy/Kailee/eTransmitting on: 0 12/13/2024 06:41 AM EDT History and Physical Notes * Examination Category Sub-Category Detail Notes Category Not es General Examination GENERAL APPEARANCE: in no acute di stress EYES: EOMI EARS: auditory canal clear , middle ear effusion noted NOSE: clear discharge, tur binates pale and swollen THROAT: no erythema, post-na adrien drainage noted NECK: neck supple, no thyr omegaly CARDIO: no murmurs, regular rate and rhythm LUNGS: unlabored, clear to auscultation bilaterally ABDOMEN: bowel sounds present , no organomegaly LYMPH NODES: no cervical adenopat hy ORAL CAVITY: mucosa moist
--- OUTSIDE RECORDS SUMMARY | 2024-12-12 13:30 | XMS_ITS ---
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 Referring Provider First Name Marvin Referring Provider Last Name Priscilla Referring Provider Speciality Family Med rigoberto Referred Provider Barak Amin Referred Provider Specialty General Surg jimbo Referral Priority Routine REASON FOR VISIT annual wellness, patient is co digestion issues, stomach pains from sternum to groin, stool is dark(7-10 days), very tired, dizzy spells Medications Medication SIG (Take, Route, Frequency, Duration) Notes Start Date End Date Status Diclofenac Sodium 75 MG 1 tablet as need ed Orally Twice a day for 90 days 01/01/2024 Active Multivitamin - 1 tablet Orally Once a day Active Protonix 40 MG 1 tablet Orally Once a day for 30 days 12/12/2024 Active Aspirin 325 MG 1 tablet Orally Once a day for 90 days Active Allopurinol 100 MG TAKE 1 TABLET BY ODELL TH EVERY DAY FOR 30 DAYS for 90 days Active Ferrous Gluconate 324 (38 Fe) MG 1 tablet Orally bid for 30 days 02/09/2024 Not-Taking Levothyroxine Sodium 100 MCG TAKE 1 TABLET BY MOUTH EVERY DAY IN THE MORNING ON EMPTY STOMACH FOR 30 DAYS for 90 days Active Metoprolol Tartrate 50 MG TAKE 1 TABLET BY MOUTH TWICE A DAY for 90 days Active Lisinopril 20 MG TAKE 1 TABLET BY ODELL TH EVERY DAY FOR 30 DAYS for 90 days Active Simvastatin 20 MG TAKE 1 TABLET BY ODELL TH EVERY DAY IN THE EVENING 30 DAYS for 90 days Active Social History Tobacco Use: Social History Observation Description Date Details (start date - stop date) Never Smoker NA - NA Tobacco Use/Smoking Question Answer Notes Patient is a nonsmoker AUDIT-C (Standard) Question Answer Notes Did you have a drink contain ing alcohol in the past year? Yes How often did you have a dri nk containing alcohol in the past year? Daily or almost daily (4 points) How many drinks did you have on a typical day when you were drinking in the past year? 7 to 9 drinks (3 points) How often did you have six o r more drinks on one occasion in the past year? 4 or more times a week (4 points) Points 11 Interpretation Positive Problems Problem Type SNOMED Code ICD Code Onset Dates Problem Status W/U Status Risk Notes Problem Gastritis (6345816) Gastritis (K29.70) Active confirmed Vital Signs Weight 201 lbs 12/12/2024 Height 70 in 12/12/2024 Blood pressure systolic 140 mm Hg 12/13/19 25 Blood pressure diastolic 90 mm Hg 025 BMI 28.84 kg/m2 12/12/2024 Encounters Encounter Location Date Provider Diagnosis [facility] [address] [place] [address] 12/12/2024 Marvin Wells Well adult Z00.00 an d Gastritis K29.70 Assessments Encounter Date Diagnosis (ICD Code) Assessment Notes Treatment Notes Treatment Clinical Notes Section Notes 12/12/2024 Well adult (ICD-10 - Z00.00) 12/12/2024 Gastritis (ICD-10 - K29.70) Plan Of Treatment Medication Medication Name Sig Start Date Stop Date Notes Protonix 40 MG 1 tablet Orally Once a day for 30 days 12/02 Pending Test Test Name Order Date HEMOGLOBIN A1C (GLYCO) 12/12/2024 LIPID PANEL (CHOL/TRIG/HDL/LDL) 12/13/19 25 URIC ACID 12/12/2024 Urinalysis Microscopic 12/12/2024 PT - INR 12/12/2024 CULTURE URINE 12/12/2024 PTT 12/12/2024 THYROID PANEL (T4/TSH/FREE T3) PSA, SCREENING 12/12/2024 CMP (COMP [place]) w/eGFR CKD-EPI 2024 CBC WITH DIFF 12/12/2024 Referrals Referral Date Details 12/12/2024 12/12/2024, sarah pantoja, Barak Amin Progress Notes * Anthony LUDWIG LDOB:[birth year] (54 yo M)Acc No.[id number]:12/12/2024 UNLOCKED PROGRESS NOTE Progress Note Patient: Anthony DORAN Provider: Raymond Wells ([facility])MD :1970 A ge:54 Y S ex:Male Date:12/12/2024 Address:[address] [place] [address], [id number] Check In:05:07 PM ESTCheck O ut:06:05 PM EST Subjective: * Chief Complaints: * 1 . Annual wellness, patient is co digestion issues, stomach pains from sternum to groin, stool is dark (7-10 days), very tired, dizzy spells. * HPI: D epression Screening: PHQ-2 (2015 Edition) L ittle interest or pleasure in doing things??Not at all F eeling down, depressed, or hopeless? S everal days T otal Score 1 Black stools - ;last 10-14 days - gettign some light headed spells burping more - n. * ROS: E ENT: hearing changes d enies. v isual changes d enies.?non-healing mouth sores d enies. s wollen glands or neck lumps d enies. h oarseness d enies. s ore throat d enies. d ifficulty swallowing d enies. n ose bleeds d enies. n valencia congestion d enies. e ar ache d enies. e ar discharge?denies. r inging in ears d enies. l ight sensitivity d enies. e ye pain d enies. b lurring d enies. e ye irritation d enies. d ouble vision d enies.?vision loss d enies. G eneral/Constitutional: Sweats: D enies. F atigue d enies. S leep problems d enies. A norexia d enies. M alaise d enies. W eight loss d enies.?Fatigue or Weakness d enies. F ever or Chills d enies. C ardiovascular: Shortness of Breath w/lying flat d enies. L ightheadedness/dizziness d enies. C hest tightness/ heavy pressure d enies. S welling of legs, ankles, or feet d enies. W aking up with shortness of breath d enies. C hest pain denies. P alpitations d enies. W eight gain d enies. R espiratory: Chronic or frequent cough d enies. C oughing up blood?denies. D ifficulty breathing d enies. P roductive cough d enies. S noring?denies. S hortness of breath that awakens from sleep (PND) d enies. C hest pain d enies. S putum production d enies. W heezing d enies. M usculoskeletal: Joint pain d enies. J oint Fluid d enies. B ack pain d enies. K nee pain d enies. N chris pain d enies. J oint Stiffness d enies. M uscle cramps d enies. W eakness of muscles d enies. A rthritis d enies. M uscle aches d enies. P ain in shoulder(s) d enies. S wollen joints d enies. * Medical History: V ertigo, Prostatitis, Hyperlipidemia, Hypertension, Depression, Claustrophobia, Alcoholism, Arthralgia, Anxiety, Allergic rhinitis. * Surgical History: S urgical Repair Rt. Tib/fib , Arthroscopic medial plica excision, patellas chondroplasty- Dr. Pollard 05/21/2023, colonoscopy 03/14/24. * Hospitalization/Major Diagno stic Procedure: Krystle mathews . * Family History: F ather: , Obesity, , alcoholism, diagnosed with Unspecified essential hypertension.?Mother: , Passed in late 30's of Brain Aneurysm. S ister(s): alive, 1 sister of Alcoholism, Brain Aneurysm. 2 sister(s) - healthy. 1 daughter(s) - healthy. . * Social History: T obacco Use: T obacco Use/Smoking P atient is a n onsmoker D rug/Alcohol: A ELMO-C (Standard) D id you have a drink containing alcohol in the past year? Y es H ow often did you have a drink containing alcohol in the past year? D aily or almost daily (4 points) H ow many drinks did you have on a typical day when you were drinking in the past year? 7 to 9 drinks (3 points) H ow often did you have six or more drinks on one occasion in the past year? 4 or more times a week (4 points) P oints 1 1 I nterpretation P ositive * Medications: T aking Allopurinol 100 MG Tablet TAKE 1 TABLET BY MOUTH EVERY DAY FOR 30 DAYS , Taking Aspirin 325 MG Tablet 1 tablet Orally Once a day , Taking Diclofenac Sodium 75 MG Tablet Delayed Release 1 tablet as needed Orally Twice a day , Taking Levothyroxine Sodium 100 MCG Tablet TAKE 1 TABLET BY MOUTH EVERY DAY IN THE MORNING ON EMPTY STOMACH FOR 30 DAYS , Taking Lisinopril 20 MG Tablet TAKE 1 TABLET BY MOUTH EVERY DAY FOR 30 DAYS , Taking Metoprolol Tartrate 50 MG Tablet TAKE 1 TABLET BY MOUTH TWICE A DAY , Taking Multivitamin(Multiple Vitamin) - Tablet 1 tablet Orally Once a day , Taking Simvastatin 20 MG Tablet TAKE 1 TABLET BY MOUTH EVERY DAY IN THE EVENING 30 DAYS , Not-Taking/PRN Ferrous Gluconate 324 (38 Fe) MG Tablet 1 tablet Orally bid , Medication List reviewed and reconciled with the patient * Allergies: N .K.D.A. Objective: * Vitals: W t:201lbs, Ht: 70 in, BP:140/90mm Hg, BMI:28.84Index, Ht-cm: 177.8 cm, Wt-k.17 kg. * Examination: P hysical Exam: GENERAL: w ell developed, well nourished, in no acute distress. HEAD: n ormocephalic/atraumatic. EYES: p upils equal, round and reactive to light, conjunctivae and sclerae normal. EARS: n o deformity or lesion of external ear, canals and TM appear normal bilaterally, TM's intact, not inflamed with normal light reflex, hearing grossly normal to conversational speech. NOSE: n o deformity, discharge, inflammation, or lesions.? MOUTH: m ucous membranes moist, normal oropharynx and posterior pharynx without lesions or exudates, tongue normal, dentition normal. NECK: n chris supple, no masses or palpable cervical nodes, trachea midline, thyroid without nodules, masses, tenderness, or enlargement. CHEST: n o chest wall deformity, no chest wall tenderness.? LUNGS: n ormal respiratory effort and clear to auscultation, no wheezes, rales, or rhonchi, good air exchange. CARDIO: r egular rate and rhythm, normal S1 and S2, nor murmur, rub, or gallop. PULSES: n ormal capillary refill. ABDOMEN: s oft, non-distended, non-tender, no masses. MUSCULOSKELETAL: n o deformity or scoliosis noted, normal range of motion, joints normal, no erythema, edema, effusion, or ecchymosis. EXTREMITY: n o clubbing, cyanosis, edema, or deformity with normal ROM in both upper and lower bilateral extremities. NEUROLOGIC: g rossly normal. SKIN: n o rashes, ulcerations, or suspicious lesions. LYMPH NODES: n o cervical adenopathy, nodes normal. MENTAL STATUS: a lert and oriented x3, normal mood and affect. Assessment: * Assessment: 1. W ell adult - Z00.00 (Primary) 2 . G astritis - K29.70 Plan: * Treatment: 2. G astritis Referral To:Barak Hineswisam General Surgery Reason:ghastriti * * Electronic signature of Marvin Wells MD, [phone] on 12/13/2024 at 06:41 AM EDT Sign off status: Pending Visit Status: C SIMON (Check Out) * Provider: Raymond Wells ([facility] Kristi Date: 0 12/12/2024 Generated for Charles chavez/Kailee/eTransmitting on: 0 12/13/2024 06:41 AM EDT History and Physical Notes * HPI (History of Present Illness) Category Sub-Category Detail Notes Category Not es Depression Screening PHQ-2 (2015 Edition) Little interest or pleasure in doing things?: Not at all Black stools - ;last 10-14 days - gettign some light headed spells burping more - n Feeling down, depressed, or hopeless?: S everal days Total Score: 1 Examination Category Sub-Category Detail Notes Category Not es Physical Exam GENERAL: well developed, well nourished, in no acute distress HEAD: normocephalic/atraum atic EYES: pupils equal, round and reactive to light, conjunctivae and sclerae normal EARS: no deformity or lesi on of external ear, canals and TM appear normal bilaterally, TM's intact, not inflamed with normal light reflex, hearing grossly normal to conversational speech NOSE: no deformity, discha rge, inflammation, or lesions MOUTH: mucous membranes marky st, normal oropharynx and posterior pharynx without lesions or exudates, tongue normal, dentition normal NECK: neck supple, no mass es or palpable cervical nodes, trachea midline, thyroid without nodules, masses, tenderness, or enlargement CHEST: no chest wall deform ity, no chest wall tenderness LUNGS: normal respiratory e ffort and clear to auscultation, no wheezes, rales, or rhonchi, good air exchange CARDIO: regular rate and rhy thm, normal S1 and S2, nor murmur, rub, or gallop PULSES: normal capillary ref ill ABDOMEN: soft, non-distended, non-tender, no masses RECTAL: MUSCULOSKELETAL: no deformity or scol iosis noted, normal range of motion, joints normal, no erythema, edema, effusion, or ecchymosis EXTREMITY: no clubbing, cyanosi s, edema, or deformity with normal ROM in both upper and lower bilateral extremities NEUROLOGIC: grossly normal SKIN: no rashes, ulceratio ns, or suspicious lesions LYMPH NODES: no cervical adenopat hy, nodes normal MENTAL STATUS: alert and oriented x 3, normal mood and affect Consultation Request Notes Referral Date Referring Provider Referred Provider Not vanesa 12/12/2024 Marvin Wells Paul ghastriti
--- OUTSIDE RECORDS SUMMARY | 2024-12-13 06:41 | XMS_ITS | CCD ---
Author Organization [facility] Care Team Providers Care Gasfitter Name Role Phone DR IGNACIO LAGUNAS Consulting Unavailable GET, DR JAY Admitting Unavailable GET, DR JAY Attending Unavailable GET, DR JAY Primary Care Unavailable GET, DR JAY Consulting Unavailable RAFIA, DR KIEL Wing Consulting Unavailluz marina WAITE, DR JEANNE Nam Consulting Unavailable TORRESKONSTANTIN Consulting Unavailable FAWWASHAIKH Celine Andrade Consulting Unavailable FALVO, SUJATHA Consulting Unavailable GET, DR JAY Admitting Unavailable GET, DR JAY Attending Unavailable GET, DR JAY Consulting Unavailable GET, DR JAY Primary Care Unavailable GET, DR JAY Admitting Unavailable GET, DR JAY Attending Unavailable GET, DR JAY Consulting Unavailable GET, DR JAY Primary Care Unavailable Bruce Galvan Unavailable MD Misty Wells Primary Care Provider [phone] Bruce Galvan Attending Provider Montse Rosario Unavailable MD Misty Wells Primary Care Provider [phone] Bruce Galvan Attending Provider Asad CARBAJAL Attending Unavailable Aranza BASILIO Attending Unavailable Aranza BASILIO Attending Unavailable Asad CARBAJAL Attending Unavailable Misty Wells MD Primary Care Provider [phone] Misty Wells MD Primary Care Provider [phone] Barak Douglas DO Attending Provider BARAK DOUGLAS Attending Unavailable MISTY WELLS Referring Unavailable BARAK DOUGLAS Attending Unavailable Misty Wells Primary Care Unavailable Bruce Galvan Admitting Unavailable Bruce Galvan Attending Unavailable Barak Douglas Attending Unavailable Misty Wells Primary Care Unavailable Barak Douglas Admitting Unavailable Misty Wells Primary Care Unavailable Bruce Galvan Admitting Unavailable Bruce Galvan Attending Unavailable Medications Current Medications Medication Drug Class(es) Dates Sig (Normalized) Sig (Original) allopurinol 100 mg oral tablet (13 sources) Xanthine Oxidase Inhibitor Start: 05-13-2023 take 1 tablet by mouth once daily in the morning Allopurinol 100 mg tablet Active 100 MG PO Every morning May 13, 2023 12:00am aspirin 325 mg oral tablet (13 sources) Platelet Aggregation Inhibitor, Nonsteroidal Anti-inflammatory Drug Start: 05-13-2023 Ayush Aspirin 325 MG tablet 05/13/2023 Active take 1 tablet by jennifer th every twenty-four hours Aspirin 81 81 MG 1 tablet Orally Once a day Active take 1 tablet by mouth once zhanna y Aspirin 81 81 MG 1 tablet Orally Once a day Active diclofenac sodium 75 mg delayed release oral tablet (4 sources) Nonsteroidal Anti-inflammatory Drug diclofenac (Voltaren) 75 MG EC tablet Active ferrous sulfate 325 mg delayed release oral tablet (4 sources) Start: take 1 tablet by mouth in the morning ferrous sulfate 325 (65 Fe) MG EC tablet Take 1 tablet by mouth in the morning and 1 tablet before bedtime. 01/06/2024 Active levothyroxine sodium 0.1 mg oral tablet (5 sources) l-Thyroxine Start: take 1 tablet by mouth once daily Levothyroxine 100 mcg tablet Active 100 MCG PO Daily March 14, 2024 12:00am lisinopril 20 mg oral tablet (13 sources) Angiotensin Converting Enzyme Inhibitor Start: take 1 tablet by mouth once daily in the morning Lisinopril 20 mg tablet Active 20 MG PO Every morning May 13, 2023 12:00am metoprolol tartrate 50 mg oral tablet (13 sources) beta-Adrenergic Umair Start: take 1 tablet by mouth twice daily Metoprolol Tartrate 50 mg tablet Active 50 MG PO Twice daily May 13, 2023 12:00am Multiple Vitamins-Minerals (Centrum Silver Adult 50+) tablet (4 sources) Multiple Vitamins-Minerals (Centrum Silver Adult 50+) tablet Active Qg-Ykw-Lnvxi-K1-Lyco pen-Lutein (Centrum Silver Men) 340-22-042-300 mcg Tablet (4 sources) Start: take 1 tablet by mouth once daily Gq-Otj-Kozxz-K1-Lyco pen-Lutein (Centrum Silver Men) 236-63-654-300 mcg Tablet Active 1 TAB PO Daily May 13, 2023 1:00am Start: 05-13-2023 take 1 tablet by jennifer th once daily Qi-Axc-Agbqy-B5-Giurclm-Aqcizw (Centrum Silver Men) 637-07-003-300 mcg Tablet Active 1 TAB PO Daily May 13, 2023 12:00am simvastatin 20 mg oral tablet (13 sources) HMG-CoA Reductase Inhibitor Start: 05-13-2023 take 1 tablet by mouth once daily in the morning Simvastatin 20 mg tablet Active 20 MG PO Every morning May 13, 2023 12:00am Completed/Discontinued Medications Medication Drug Class(es) Dates Sig (Normalized) Sig (Original) oxyCODONE hydrochloride 5 mg oral capsule (3 sources) Opioid Agonist Start: 05-21-2023 End: 03-14-2024 take 1 capsule by mouth every four to six hours Oxycodone 5 mg capsule Discontinued 5 MG PO EVERY 4-6 HOURS 20 7 May 21, 2023 March 14, 2024 9:43am triamcinolone acetonide 40 mg/ml injectable suspension (4 sources) Corticosteroid Start: 03-02-2023 Kenalog-40 Feb, 40 mg Problems Active Problems Problem Classification [...] knee] Chronic Joint disorders and dislocations; trauma-related (8 sources) Other tear of medial meniscus, current injury, left knee, subsequent encounter; Translations: [Tear of medial meniscus of knee] Episodic Other aftercare (1 source) Encounter for removal of sutures Episodic Other non-traumatic joint disorders (4 sources) Pain in left knee Episodic Other screening for suspected conditions (not mental disorders or infectious disease) (9 sources) Patient encounter status; Translations: [Encounter for screening for malignant neoplasm of colon] Onset: 02-05-2024 02-05-2024 Episodic Residual codes; unclassified (2 sources) Postprocedural state finding; Translations: [Other specified postprocedural [...] [Encounter for preprocedural laboratory examination] Onset: 05-13-2023 Viral infection (4 sources) COVID-19; Translations: [COVID-19] Onset: 04-11-2021 Past or Other Problems Problem Classification Problem Date Documented Date Episodic/Chronic Conditions associated with dizziness or vertigo [...] 10-17-2021 Episodic Other aftercare (1 source) Other terminal carman (current) drug therapy; Translations: [[facility] S[facility]IOR CARE CURRENT DRUG THERAPY] Onset: 10-17-2021 Episodic Other upper respiratory infections (1 source) Acute sinusitis, unspecified; Translations: [ACUTE SINUSITIS UNSPECIFIED] Onset: 05-16-2021 Episodic Residual codes; unclassified (5 sources) Other specified postprocedural states; Translations: [Other postprocedural status] Onset: 05-21-2023 Episodic Unclassified (1 source) CONTACT W/AND (SUSP) EXPOS COVID-19; Translations: [CONTACT W/AND (SUSP) EXPOS COVID-19] Onset: 04-09-2021 Results Test Name Value Interpretation Reference Range Facility Registrationon 08-18-2023 Registration [id number] 0#1.00TIFF Normal [facility] Registration [id number] 3#1.00TIFF [facility] In office Testingon 08-17-19 24 In office Testing [id number] #1.00TIFF Normal [facility] Alanine aminotransferase [En zymatic activity/volume] in Serum or PlasmaOrdered By: Bruce Galvan on 05-13-2023 ALT [Catalytic activity/Vol] 35 U/L Normal 7-52 [facility] Comment on above: Performed By: #### C BC, CMP wRFX A1C #### [address] Albumin [Mass/volume] in Ser um or Plasma by Bromocresol green (BCG) dye binding methoOrdered By: Bruce Galvan on 05-13-2023 Albumin BCG dye [Mass/Vol] 4.6 g/dL 3.5-5.7 [facility] Alkaline phosphatase [Enzyma tic activity/volume] in Serum or PlasmaOrdered By: Bruce Galvan on 05-13-2023 ALP [Catalytic activity/Vol] 61 U/L Normal 34-104 [facility] Comment on above: Result Comment: PERF ORMED BY: [place] [address] PATHOLOGIST DIRECTOR [employer] LARRY PIZANO M.D. Performed By: #### C BC, CMP wRFX A1C #### [address] Aspartate aminotransferase [ Enzymatic activity/volume] in Serum or PlasmaOrdered By: Bruce Galvan on 05-13-2023 AST [Catalytic activity/Vol] 20 U/L Normal 13-39 [facility] Comment on above: Performed By: #### C BC, CMP wRFX A1C #### [address] Automated basophil %Ordered By: Bruce Galvan on 05-13-2023 Basophils/100 WBC (Bld) 0.4 % Normal . [facility] Comment on above: Performed By: #### C BC, CMP wRFX A1C #### [address] Automated basophil countOrde red By: Bruce Galvan on 05-13-2023 Basophils (Bld) [#/Vol] 0.0 10*3/uL Normal 0.0-0.2 [facility] Comment on above: Result Comment: PERF ORMED BY: [place] [address] PATHOLOGIST DIRECTOR [employer] LARYR PIZANO M.D. Performed By: #### C BC, CMP wRFX A1C #### [address] Automated blood monocyte cou ntOrdered By: Bruce Galvan on 05-13-2023 Monocytes (Bld) [#/Vol] 0.6 10*3/uL Normal 0.0-0.8 [facility] Comment on above: Performed By: #### C BC, CMP wRFX A1C #### [address] Automated eosinophil %Ordere d By: Bruce Galvan on 05-13-2023 Eosinophils/100 WBC (Bld) 3.7 % Normal . [facility] Comment on above: Performed By: #### C BC, CMP wRFX A1C #### [address] Automated eosinophil countOr dered By: Bruce Galvan on 05-13-2023 Eosinophils (Bld) [#/Vol] 0.2 10*3/uL Normal 0.0-0.45 [facility] Comment on above: Performed By: #### C BC, CMP wRFX A1C #### [facility] [address] Automated monocyte %Ordered By: Bruce Galvan on 05-13-2023 Monocytes/100 WBC (Bld) 9.1 % Normal . [facility] Comment on above: Performed By: #### C BC, CMP wRFX A1C #### [facility] [address] Automated neutrophil %Ordere d By: Bruce Galvan on 05-13-2023 Neutrophils/100 WBC (Bld) 62.0 % Normal . [facility] Comment on above: Performed By: #### C BC, CMP wRFX A1C #### [facility] [address] [place] [address] Bilirubin.total [Mass/volume ] in Serum or PlasmaOrdered By: Bruce Galvan on 05-13-2023 Bilirubin [Mass/Vol] 0.5 mg/dL Normal 0.3-1.0 [facility] Comment on above: Performed By: #### C BC, CMP wRFX A1C #### [facility] [address] [place] [address] CMP with reflex to A1Con Albumin [Mass/Vol] 4.6 g/dL Normal 3.5-5.7 [facility] Comment on above: Performed By: #### C BC, CMP wRFX A1C #### [facility] [address] [place] [address] [place] GFR/1.73 sq M.predicted MDRD (S/P/Bld) [Vol rate/Area] mL/min/{1.73_m2} Normal [facility] Comment on above: Performed By: #### C BC, CMP wRFX A1C #### [facility] [address] [place] [address] Calcium [Mass/volume] in Ser um or PlasmaOrdered By: Bruce Galvan on 05-13-2023 Calcium [Mass/Vol] 9.7 mg/dL Normal 8.6-10.3 [facility] Comment on above: Performed By: #### C BC, CMP wRFX A1C #### [facility] [address] Carbon dioxide, total [Moles /volume] in Serum or PlasmaOrdered By: Bruce Galvan on 05-13-2023 CO2 [Moles/Vol] 30.0 mmol/L Normal 21.0-31.0 [facility] Comment on above: Performed By: #### C BC, CMP wRFX A1C #### [facility] [address] Chloride [Moles/volume] in S sara or PlasmaOrdered By: Bruce Galvan on 05-13-2023 Chloride [Moles/Vol] 105 mmol/L Normal 98-107 [facility] Comment on above: Performed By: #### C BC, CMP wRFX A1C #### [facility] [address] Complete Blood Count Auto Di ffon 05-13-2023 Mean Corpuscular HGB Conc 34.3 g/dL Normal 32.5-35.6 [facility] Comment on above: Performed By: #### C BC, CMP wRFX A1C #### [facility] [address] NRBC% 0.1 /100{WBC} Normal 0-0.5 [facility] Comment on above: Performed By: #### C BC, CMP wRFX A1C #### [facility] [address] Creatinine [Mass/volume] in Serum or PlasmaOrdered By: Bruce Galvan on 05-13-2023 Creatinine [Mass/Vol] 1.07 mg/dL Normal 0.70-1.30 [facility] Comment on above: Performed By: #### C BC, CMP wRFX A1C #### [facility] [address] ECG 12 lead ECGon 05-13-2023 ECG 12 lead ECG [facility] Main [place] [address] [place] [address] Electrocardiograph Report Signed Patient: Johnathon Ludwig MR#: [id number] : 1970 Acct:[id number] Age/Sex: 52 / M ADM Date: 05/13/23 [facility]: [facility]: Bruce Galvan DO Ordering Provider: [...] previous ECGs available Confirmed by Maurice Cardoza ([id number]) on 05/14/2023 8:53:06 AM Referred By: GET GALVAN Electronically Signed By:Maurice Cardoza Transcribed By: MUS Signed By Maurice Cardoza MD 05/14/23 0853 Normal [facility] Erythrocyte distribution wid th [Ratio] by Automated countOrdered By: Bruce Galvan on 05-13-2023 Erythrocyte distribution width (RBC) [Ratio] 13.2 % Normal 12.0-14.8 [facility] Comment on above: Performed By: #### C BC, CMP wRFX A1C #### [facility] [address] [place] [address] [place] Erythrocytes [#/volume] in B lood by Automated countOrdered By: Bruce Galvan on 05-13-2023 RBC (Bld) [#/Vol] 4.54 10*6/uL Normal 3.90-5.60 [facility] Comment on above: Performed By: #### C BC, CMP wRFX A1C #### [facility] [address] [place] [address] [place] Glucose [Mass/volume] in Ser um or PlasmaOrdered By: Bruce Galvan on 05-13-2023 Glucose [Mass/Vol] 97 mg/dL Normal 70-100 [facility] Comment on above: Performed By: #### C BC, CMP wRFX A1C #### [facility] [address] Hematocrit [Volume Fraction] of Blood by Automated countOrdered By: Bruce Galvan on 05-13-2023 Hematocrit (Bld) [Volume fraction] 41.2 % Normal 38.8-50.0 [facility] Comment on above: Performed By: #### C BC, CMP wRFX A1C #### [facility] [address] Hemoglobin [Mass/volume] in BloodOrdered By: Bruce Galvan on 05-13-2023 Hemoglobin (Bld) [Mass/Vol] 14.1 g/dL Normal 13.0-17.0 [facility] Comment on above: Performed By: #### C BC, CMP wRFX A1C #### [facility] [address] Leukocytes [#/volume] correc melanie for nucleated erythrocytes in Blood by Automated counOrdered By: Bruce Galvan on 05-13-2023 WBC corrected for nucl RBC Auto (Bld) [#/Vol] 6.4 10*3/uL 4.1-10.5 [facility] Leukocytes [#/volume] in Blo od by Automated countOrdered By: Bruce Galvan on 05-13-2023 WBC (Bld) [#/Vol] 6.4 10*3/uL Normal 4.1-10.5 [facility] Comment on above: Performed By: #### C BC, CMP wRFX A1C #### [facility] [address] [place] [address] [place] Lymphocytes [#/volume] in Bl ood by Automated countOrdered By: Bruce Galvan on 05-13-2023 Lymphocytes (Bld) [#/Vol] 1.6 10*3/uL Normal 1.00-4.8 [facility] Comment on above: Performed By: #### C BC, CMP wRFX A1C #### [facility] [address] [place] [address] Lymphocytes/100 leukocytes i n Blood by Automated countOrdered By: Bruce Galvan on 05-13-2023 Lymphocytes/100 WBC (Bld) 24.8 % Normal . [facility] Comment on above: Performed By: #### C BC, CMP wRFX A1C #### [address] MCH [Entitic mass] by Automa melanie countOrdered By: Bruce Galvan on 05-13-2023 MCH (RBC) [Entitic mass] 31.1 pg Normal 27.5-35.2 [facility] Comment on above: Performed By: #### C BC, CMP wRFX A1C #### [address] MCHC Auto (RBC) [Mass/Vol]Or dered By: Bruce Galvan on 05-13-2023 MCHC (RBC) [Mass/Vol] 34.3 g/dL 32.5-35.6 [facility] MCV [Entitic volume] by Auto mated countOrdered By: Bruce Galvan on 05-13-2023 MCV (RBC) [Entitic vol] 90.8 fL Normal 83.5-101 [facility] Comment on above: Performed By: #### C BC, CMP wRFX A1C #### [address] Neutrophils [#/volume] in Bl ood by Automated countOrdered By: Bruce Galvan on 05-13-2023 Neutrophils (Bld) [#/Vol] 4.0 10*3/uL Normal 1.8-7.7 [facility] Comment on above: Performed By: #### C BC, CMP wRFX A1C #### [facility] [address] [place] [address] No Panel InformationOrdered By: Bruce Galvan on 05-13-2023 Estimated GFR (CKD-EPI) > 60.0 mL/Min [facility] Creatinine Clearance (Chem N/A [facility] Nucleated erythrocytes [Pres ence] in Blood by Automated countOrdered By: Bruce Galvan on 05-13-2023 Nucleated RBC Auto Ql (Bld) 0.1 /100{WBC} 0-0.5 [facility] Platelet mean volume [Entiti c volume] in Blood by Automated countOrdered By: Bruce Galvan on 05-13-2023 Platelet mean volume (Bld) [Entitic vol] 8.7 fL Normal 6.6-10.1 [facility] Comment on above: Performed By: #### C BC, CMP wRFX A1C #### [facility] [address] [place] [address] [place] Platelets [#/volume] in Bloo d by Automated countOrdered By: Bruce Galvan on 05-13-2023 Platelets (Bld) [#/Vol] 266 10*3/uL Normal 150-450 [facility] Comment on above: Performed By: #### C BC, CMP wRFX A1C #### [facility] [address] [place] [address] [place] Potassium [Moles/volume] in Serum or PlasmaOrdered By: Bruce Galvan on 05-13-2023 Potassium [Moles/Vol] 4.3 mmol/L Normal 3.5-5.1 [facility] Comment on above: Performed By: #### C BC, CMP wRFX A1C #### [place] [address] [place] Protein [Mass/volume] in Ser um or PlasmaOrdered By: Bruce Galvan on 05-13-2023 Protein [Mass/Vol] 7.1 g/dL Normal 6.4-8.9 [facility] Comment on above: Performed By: #### C BC, CMP wRFX A1C #### [facility] [address] Serum globulin measurement b y calculation (mass/volume)Ordered By: Bruce Galvan on 05-13-2023 Globulin (S) [Mass/Vol] 2.5 g/dL Normal [facility] Comment on above: Performed By: #### C BC, CMP wRFX A1C #### [address] Serum or plasma albumin/glob ulin mass ratioOrdered By: Bruce Galvan on 05-13-2023 Albumin/Globulin [Mass ratio] 1.8 {ratio} Normal [facility] Comment on above: Performed By: #### C BC, CMP wRFX A1C #### [facility] [address] Serum or plasma anion gap de terminationOrdered By: Bruce Galvan on 05-13-2023 Anion gap [Moles/Vol] 9.3 mmol/L Normal 6.0-15.0 [facility] Comment on above: Performed By: #### C BC, CMP wRFX A1C #### [facility] [address] Sodium [Moles/volume] in Ser um or PlasmaOrdered By: Bruce Galvan on 05-13-2023 Sodium [Moles/Vol] 140 mmol/L Normal 136-145 [facility] Comment on above: Performed By: #### C BC, CMP wRFX A1C #### [facility] [address] Urea nitrogen [Mass/volume] in Serum or PlasmaOrdered By: Bruce aGlvan on 05-13-2023 Urea nitrogen [Mass/Vol] 15 mg/dL Normal 7-25 [facility] Comment on above: Performed By: #### C BC, CMP wRFX A1C #### [facility] [address] [place] [address] [place] In office Testingon 11-06-19 23 In office Testing [id number] 1#1.00CD:127 Normal [facility] Consenton 10-31-2022 Consent [id number] 7#1.00CD:127 Normal [facility] Registrationon 10-31-2022 Registration [id number] 1#1.00CD:127 Normal [facility] CBC AUTO DIFFon 10-14-2021 BASO # 0.0 103/ul Normal 0.0-0.1 [facility] Comment on above: Performed By: #### C BC #### [facility] [address] [place] [address] Dr. Gloria Coffman Basophils/100 WBC (Bld) 0.1 % Critically low 0.2-2.0 [facility] Comment on above: Performed By: #### C BC #### [facility] [address] [place] [address] Dr. Gloria Coffman EO # 0.0 103/ul Normal 0.0-0.7 [facility] Comment on above: Performed By: #### C BC #### [facility] [address] [place] [address] Dr. Gloria Coffman Eosinophils/100 WBC (Bld) 0.0 % Critically low 0.9-7.0 [facility] Comment on above: Performed By: #### C BC #### [facility] [address] [place] [address] Dr. Gloria Coffman Erythrocyte distribution width (RBC) [Ratio] 13.1 % Normal 11.0-15.0 [facility] Comment on above: Performed By: #### C BC #### [facility] [address] [place] [address] Dr. Gloria Coffman Hematocrit (Bld) [Volume fraction] 41.4 % Critically low 42.0-54.0 [facility] Comment on above: Performed By: #### C BC #### [facility] [address] [place] [address] Dr. Gloria Coffman Hemoglobin (Bld) [Mass/Vol] 13.6 g/dL Critically low 14.0-18.0 [facility] Comment on above: Performed By: #### C BC #### [facility] [address] [place] [address] Dr. Gloria Coffman IG # 0.02 10e3/ul Normal 0.00-0.03 [facility] Comment on above: Performed By: #### C BC #### [facility] [address] [place] [address] Dr. Gloria Coffman IG % 0.2 % Normal 0.0-0.5 [facility] Comment on above: Performed By: #### C BC #### [facility] [address] [place] [address] Dr. Gloria Coffman LYMPH # 0.8 103/ul Critically low 1.2-3.8 [facility] Comment on above: Performed By: #### C BC #### [facility] [address] [place] [address] Dr. Gloria Coffman Lymphocytes/100 WBC (Bld) 7.3 % Critically low 20.5-60.0 [facility] Comment on above: Performed By: #### C BC #### [facility] [address] [place] [address] Dr. Gloria Coffman MANUAL DIFF REQ NO Normal [facility] Comment on above: Performed By: #### C BC #### [facility] [address] [place] [address] Dr. Gloria Coffman MCH (RBC) [Entitic mass] 30.4 pg Normal 25.9-34.0 [facility] Comment on above: Performed By: #### C BC #### [facility] [address] [place] [address] Dr. Gloria Coffman MCHC (RBC) [Mass/Vol] 32.9 g/dL Normal 29.9-35.2 [facility] Comment on above: Performed By: #### C BC #### [facility] [address] [place] [address] Dr. Gloria Coffman MCV (RBC) [Entitic vol] 92.6 fL Normal 80.0-94.0 [facility] Comment on above: Performed By: #### C BC #### [facility] [address] [place] [address] Dr. Gloria Coffman MONO # 0.4 103/ul Normal 0.3-0.8 [facility] Comment on above: Performed By: #### C BC #### [facility] [address] [place] [address] Dr. Gloria Coffman Monocytes/100 WBC (Bld) 4.0 % Normal 1.7-12.0 [facility] Comment on above: Performed By: #### C BC #### [facility] [address] [address] [address] Gloria Coffman NEUT # 9.3 103/ul Critically high 1.4-6.5 [facility] Comment on above: Performed By: #### C BC #### [facility] [address] [address] [address] Gloria Coffman Neutrophils/100 WBC (Bld) 88.4 % Critically high 43.0-75.0 [facility] Comment on above: Performed By: #### C BC #### [facility] [address] [place] [address] Dr. Gloria Coffman Platelet mean volume (Bld) [Entitic vol] 12.4 fL Normal 9.5-13.5 [facility] Comment on above: Performed By: #### C BC #### [facility] [address] [place] [address] Dr. Gloria Coffman PLT 133 103/ul Critically low 150-450 [facility] Comment on above: Performed By: #### C BC #### [facility] [address] [place] [address] Dr. Gloria Coffman RBC 4.47 106/ul Critically low 4.70-6.10 [facility] Comment on above: Performed By: #### C BC #### [facility] [address] [place] [address] Dr. Gloria Coffman WBC 10.5 103/ul Normal 4.0-11.0 [facility] Comment on above: Performed By: #### C BC #### [facility] [address] [place] [address] Dr. Gloria Coffman CTA NECK WO W CONon 10-15-19 CTA NECK WO W CON EXAMINATION: CTA [...] by: JEANNE WAITE Date: 2021-10-14 09:38 Normal [facility] ECHOCARDIO M/2D COMPLETEon 0 10-14-2021 ECHOCARDIO M/2D COMPLETE Patient: JOHNATHON VIRGEN Exam Date: 10/14/2021 : 1970 Gender:M Ordering : DR MISTY WELLS . Admission #: [id number] Family : Order #: [id number] CLICK HERE TO VIEW EXAM ECHOCARDIOGRAM REPORT [...] Area(A4C): 16.90 cm2 Left Atrium Systolic Volume(A2C): 29912 mm3 Left Atrium Systolic Volume(A4C): 39790 mm3 Mitral Valve MV E to A Ratio: 1.20 Deceleration Bullock: 4200 mm/s2 Mitral Valve A-Wave Peak Velocity: [...] Gradient: 6 mm[Hg] Right Atrium Dictated by: Maruice Ziegler M.D. on 10/15/2021 at 18:03 Approved by: Maurice Ziegler M.D. on 10/15/2021 at 18:05 Normal [facility] MRI BRAIN WO CONon 2 MRI [...] JEANNE WAITE Date: 2021-10-14 12:05 Normal [facility] PROF 14(COMP METB)on 10-14- 022 Albumin [Mass/Vol] 3.9 g/dL Normal 3.4-5.0 [facility] Comment on above: Performed By: #### C MP #### [facility] [address] [place] [address] Dr. Gloria Coffman Albumin/Globulin [Mass ratio] 1.1 {ratio} Normal [facility] Comment on above: Performed By: #### C MP #### [facility] [address] [place] [address] Dr. Gloria Coffman ALP [Catalytic activity/Vol] 54 U/L Normal 46-116 [facility] Comment on above: Performed By: #### C MP #### [facility] [address] [place] [address] Dr. Gloria Coffman ALT [Catalytic activity/Vol] 29 U/L Normal 16-63 [facility] Comment on above: Performed By: #### C MP #### [facility] [address] [place] [address] Dr. Gloria Coffman Anion gap [Moles/Vol] 14.1 mmol/L Normal [facility] Comment on above: Performed By: #### C MP #### [facility] [address] [place] [address] Dr. Gloria Coffman AST [Catalytic activity/Vol] 7 U/L Critically low 15-37 [facility] Comment on above: Performed By: #### C MP #### [facility] [address] [address] [address] Gloria Coffman Bilirubin [Mass/Vol] 0.5 mg/dL Normal 0.2-1.0 [facility] Comment on above: Performed By: #### C MP #### [facility] [address] [address] [address] Gloria Coffman Calcium [Mass/Vol] 8.8 mg/dL Normal 8.5-10.1 [facility] Comment on above: Performed By: #### C MP #### [facility] [address] [place] [address] Dr. Gloria Coffman Chloride [Moles/Vol] 106 mmol/L Normal 98-107 [facility] Comment on above: Performed By: #### C MP #### [facility] [address] [address] [address] Gloria Coffman CO2 [Moles/Vol] 24.8 mmol/L Normal 21.0-32.0 [facility] Comment on above: Performed By: #### C MP #### [facility] [address] [place] [address] Dr. Gloria Coffman Creatinine [Mass/Vol] 0.88 mg/dL Normal 0.70-1.30 [facility] Comment on above: Performed By: #### C MP #### [facility] [address] [place] [address] Dr. Gloria Coffman EGFR-AF [place]IZ[place] >60 Normal >=60 [facility] Comment on above: Performed By: #### C MP #### [facility] [address] [address] [address] Gloria Coffman EGFR-NON AF CITIZ[place] >60 Normal >=60 [facility] Comment on above: Performed By: #### C MP #### [facility] [address] [place] [address] Dr. Gloria Coffman Globulin (S) [Mass/Vol] 3.5 g/dL Normal [facility] Comment on above: Performed By: #### C MP #### [facility] [address] [address] [address] Gloria Coffman Glucose [Mass/Vol] 156 mg/dL Critically high 74-106 [facility] Comment on above: Performed By: #### C MP #### [facility] [address] [address] [address] Gloria Coffman Potassium [Moles/Vol] 3.9 mmol/L Normal 3.5-5.1 [facility] Comment on above: Performed By: #### C MP #### [facility] [address] [address] [address] Gloria Coffman Protein [Mass/Vol] 7.4 g/dL Normal 6.4-8.2 [facility] Comment on above: Performed By: #### C MP #### [facility] [address] [address] [address] Gloria Coffman Sodium [Moles/Vol] 141 mmol/L Normal 136-145 [facility] Comment on above: Performed By: #### C MP #### [facility] [address] [address] [address] Gloria Coffman Urea nitrogen [Mass/Vol] 15.0 mg/dL Normal 7.0-18.0 [facility] Comment on above: Performed By: #### C MP #### [facility] [address] [address] [address] Gloria Coffman Urea nitrogen/Creatinine [Mass ratio] 17.0 mg/mg Normal [facility] Comment on above: Performed By: #### C MP #### [facility] [address] [address] [address] Gloria Coffman CBC W MANUAL DIFFon 10-14-19 22 ATYPICAL LYMPH # Normal [facility] Comment on above: Performed By: #### C BCMAN #### [facility] [address] [address] [address] Gloria Coffman ATYPICAL LYMPH % Normal [facility] Comment on above: Performed By: #### C BCMAN #### [facility] [address] [place] [address] Dr. Gloria Coffman BAND # Normal 0.0-0.3 [facility] Comment on above: Performed By: #### C BCOCTAVIO #### [facility] [address] [place] [address] Dr. Gloria Coffman BAND % Normal 0-5 [facility] Comment on above: Performed By: #### C EILEEN #### [facility] [address] [place] [address] Dr. Gloria Coffman BASOM # 0.18 103/ul Critically high 0.00-0.10 [facility] Comment on above: Performed By: #### C EILEEN #### [facility] [address] [place] [address] Dr. Gloria Coffman BASOM % 2.0 % Normal 0.2-2.0 [facility] Comment on above: Performed By: #### C EILEEN #### [facility] [address] [place] [address] Dr. Gloria Coffman BLAST # Normal [facility] Comment on above: Performed By: #### C EILEEN #### [facility] [address] [place] [address] Dr. Gloria Coffman BLAST % Normal [facility] Comment on above: Performed By: #### C EILEEN #### [facility] [address] [place] [address] Dr. Gloria Coffman CORRECTED WBC Normal 4.0-11.0 [facility] Comment on above: Performed By: #### C EILEEN #### [facility] [address] [place] [address] Dr. Gloria Coffman EOS # 0.00 103/ul Normal 0.00-0.70 [facility] Comment on above: Performed By: #### C EILEEN #### [facility] [address] [place] [address] Dr. Gloria Coffman EOS% 0.0 % Critically low 0.9-7.0 [facility] Comment on above: Performed By: #### C EILEEN #### [facility] [address] [place] [address] Dr. Gloria Coffman HCT 41.8 % Critically low 42.0-54.0 [facility] Comment on above: Performed By: #### C EILEEN #### [facility] [address] [address] [address] Gloria Coffman HGB 13.6 g/dl Critically low 14.0-18.0 [facility] Comment on above: Performed By: #### C EILEEN #### [facility] [address] [address] [address] Gloria Coffman LYMPHM # 0.27 103/ul Critically low 1.20-3.80 [facility] Comment on above: Performed By: #### C EILEEN #### [facility] [address] [place] [address] Dr. Gloria Coffman LYMPHM% 3.0 % Critically low 20.5-60.0 [facility] Comment on above: Performed By: #### C EILEEN #### [facility] [address] [place] [address] Dr. Gloria Coffman MCH 30.0 pg Normal 25.9-34.0 [facility] Comment on above: Performed By: #### C EILEEN #### [facility] [address] [place] [address] Dr. Gloria Coffman MCHC 32.5 g/dl Normal 29.9-35.2 [facility] Comment on above: Performed By: #### C EILEEN #### [facility] [address] [place] [address] Dr. Gloria Coffman MCV 92.3 fL Normal 80.0-94.0 [facility] Comment on above: Performed By: #### C EILEEN #### [facility] [address] [place] [address] Dr. Gloria Coffman METAMYELOCYTE # Normal [facility] Comment on above: Performed By: #### C EILEEN #### [facility] [address] [place] [address] Dr. Gloria Coffman METAMYELOCYTE % Normal [facility] Comment on above: Performed By: #### C EILEEN #### [facility] [address] [address] [address] Gloria Coffman MONOM# 0.00 103/ul Critically low 0.30-0.80 [facility] Comment on above: Performed By: #### C EILEEN #### [facility] [address] [address] [address] Gloria Coffman MONOM% 0.0 % Critically low 1.7-12.0 [facility] Comment on above: Performed By: #### C EILEEN #### [facility] [address] [address] [address] Gloria Coffman MPV 10.5 fL Normal 9.5-13.5 [facility] Comment on above: Performed By: #### C EILEEN #### [facility] [address] [place] [address] Dr. Gloria Coffman MYELOCYTE # Normal [facility] Comment on above: Performed By: #### C EILEEN #### [facility] [address] [place] [address] Dr. Gloria Coffman MYELOCYTE % Normal [facility] Comment on above: Performed By: #### C EILEEN #### [facility] [address] [place] [address] Dr. Gloria Coffman NRBC Normal [facility] Comment on above: Performed By: #### Dorinda ARELLANO #### [facility] [address] [address] [address] Gloria Coffman PLT 245 103/ul Normal 150-450 [facility] Comment on above: Performed By: #### C EILEEN #### [facility] [address] [place] [address] Dr. Gloria Coffman RBC 4.53 106/ul Critically low 4.70-6.10 [facility] Comment on above: Performed By: #### C EILEEN #### [facility] [address] [address] [address] Gloria Coffman RDW 13.2 % Normal 11.0-15.0 [facility] Comment on above: Performed By: #### C EILEEN #### [facility] [address] [place], [place] [address] Dr. Gloria Coffman SEG # 8.46 103/ul Critically high 1.40-6.50 [facility] Comment on above: Performed By: #### C CAROLYNOCTAVIO #### [facility] [address] [address] [address] Gloria Coffman SEG % 95.0 % Critically high 43.0-75.0 [facility] Comment on above: Performed By: #### C CAROLYNOCTAVIO #### [facility] [id number] Gloria Coffman WBC 8.9 103/ul Normal 4.0-11.0 [facility] Comment on above: Performed By: #### C CAROLYNOCTAVIO #### [facility] [address] [address] [address] Gloria Coffman Covid-19 PCR (CVDTBH)on 10-02 SARS-CoV-2 (COVID-19) RNA LANE+probe Ql (Unsp spec) Not detected Normal NOT DETECTED [facility] Comment on above: Result [...] for this test is supported by the [place] of Health and Human Service's declaration that [...] used). Performed By: #### C VDTBH #### [facility] [address] [address] [address] Gloria Coffman ETHANOL (BLD ALC)on 10-14-19 ALC NOTE NOTE: 80 mg/dl is the legal limit for a blood alcohol level Normal [facility] Comment on above: Performed By: #### E TH #### [facility] [address] [address] [address] Gloria Coffman Ethanol [Mass/Vol] mg/dL Normal [facility] Comment on above: Performed By: #### E TH #### [facility] [address] [address] [address] Gloria Coffman PROF 14(COMP METB)on 022 Albumin [Mass/Vol] 4.0 g/dL Normal 3.4-5.0 [facility] Comment on above: Performed By: #### C MP ####[facility] [address] [address]Dr. Gloria Coffman Albumin/Globulin [Mass ratio] 1.1 {ratio} Normal [facility] Comment on above: Performed By: #### C MP ####[facility] [address] [address]DrJenna Coffman ALP [Catalytic activity/Vol] 60 U/L Normal 46-116 [facility] Comment on above: Performed By: #### C MP ####[facility] [address] [address]DrJenna Coffman ALT [Catalytic activity/Vol] 35 U/L Normal 16-63 [facility] Comment on above: Performed By: #### C MP ####[facility] [address] [address]Dr. Gloria Coffman Anion gap [Moles/Vol] 14.6 mmol/L Normal [facility] Comment on above: Performed By: #### C MP ####[facility] [address] [address]DrJenna Coffman AST [Catalytic activity/Vol] 11 U/L Critically low 15-37 [facility] Comment on above: Performed By: #### C MP ####[facility] [address] [address]DrJenna Coffman Bilirubin [Mass/Vol] 0.6 mg/dL Normal 0.2-1.0 [facility] Comment on above: Performed By: #### C MP ####[facility] [address] [address]Dr. Gloria Coffman Calcium [Mass/Vol] 9.2 mg/dL Normal 8.5-10.1 [facility] Comment on above: Performed By: #### C MP ####[facility] [address] [address]Dr. Gloria Coffman Chloride [Moles/Vol] 104 mmol/L Normal 98-107 [facility] Comment on above: Performed By: #### C MP ####[facility] [address] [address]Dr. Gloria Coffman CO2 [Moles/Vol] 27.1 mmol/L Normal 21.0-32.0 [facility] Comment on above: Performed By: #### C MP ####[facility] [address] [place], [place] [address]Dr. Gloria Coffman Creatinine [Mass/Vol] 0.98 mg/dL Normal 0.70-1.30 [facility] Comment on above: Performed By: #### C MP ####[facility] [address] [place], [place] [address]Dr. Gloria Coffman EGFR-AF [place] >60 Normal >=60 [facility] Comment on above: Performed By: #### C MP ####[facility] [address] [address]Dr. Pilichristopher Augustus EGFR-NON AF [place] >60 Normal >=60 [facility] Comment on above: Performed By: #### C MP ####[facility] [address] [address]Dr. Gloria Coffman Globulin (S) [Mass/Vol] 3.6 g/dL Normal [facility] Comment on above: Performed By: #### C MP ####[facility] [address] [address]Dr. Gloria Coffman Glucose [Mass/Vol] 151 mg/dL Critically high 74-106 [facility] Comment on above: Performed By: #### C MP ####[facility] [address] [id number]. Gloria Augustus Potassium [Moles/Vol] 4.7 mmol/L Normal 3.5-5.1 [facility] Comment on above: Performed By: #### C MP ####[facility] [address] [id number]. Pilichristopher Coffman Protein [Mass/Vol] 7.6 g/dL Normal 6.4-8.2 [facility] Comment on above: Performed By: #### C MP ####[facility] [address] [id number]. Pilichristopher Coffman Sodium [Moles/Vol] 141 mmol/L Normal 136-145 [facility] Comment on above: Performed By: #### C MP ####[facility] [address] [place], [place] [address]Dr. Pilichristopher Coffman Urea nitrogen [Mass/Vol] 16.0 mg/dL Normal 7.0-18.0 [facility] Comment on above: Performed By: #### C MP ####[facility] [address] [place], [place] [address]Dr. Pilichristopher Coffman Urea nitrogen/Creatinine [Mass ratio] 16.3 mg/mg Normal [facility] Comment on above: Performed By: #### C MP ####[facility] [address] [id number]. Pilichristopher Coffman CBC AUTO DIFFon 10-12-2021 BASO # 0.0 103/ul Normal 0.0-0.1 [facility] Comment on above: Performed By: #### C BC ####[facility] [address] [id number]. Gloria Coffman Basophils/100 WBC (Bld) 0.3 % Normal 0.2-2.0 [facility] Comment on above: Performed By: #### C BC ####[facility] [address] [id number]. Gloria Coffman EO # 0.1 103/ul Normal 0.0-0.7 [facility] Comment on above: Performed By: #### C BC ####[facility] [address] [address]Dr. Gloria Coffman Eosinophils/100 WBC (Bld) 1.5 % Normal 0.9-7.0 [facility] Comment on above: Performed By: #### C BC ####[facility] [address] [place], [place] [address]Dr. Gloria Coffman Erythrocyte distribution width (RBC) [Ratio] 13.2 % Normal 11.0-15.0 [facility] Comment on above: Performed By: #### C BC ####[facility] [address] [place], [place] [address]Dr. Gloria Coffman Hematocrit (Bld) [Volume fraction] 41.5 % Critically low 42.0-54.0 [facility] Comment on above: Performed By: #### C BC ####[facility] [address] [place], [place] [address]Dr. Gloria Coffman Hemoglobin (Bld) [Mass/Vol] 13.8 g/dL Critically low 14.0-18.0 [facility] Comment on above: Performed By: #### C BC ####[facility] [address] [place], [place] [address]Dr. Gloria Coffman IG # 0.03 10e3/ul Normal 0.00-0.03 [facility] Comment on above: Performed By: #### C BC ####[facility] [address] [place], [place] [address]Dr. Gloria Coffman IG % 0.3 % Normal 0.0-0.5 [facility] Comment on above: Performed By: #### C BC ####[facility] [address] [place], [place] [address]Dr. Gloria Coffman LYMPH # 1.2 103/ul Normal 1.2-3.8 [facility] Comment on above: Performed By: #### C BC ####[facility] [address] [place], [place] [address]Dr. Gloria Coffman Lymphocytes/100 WBC (Bld) 12.3 % Critically low 20.5-60.0 [facility] Comment on above: Performed By: #### C BC ####[facility] [address] [address]Dr. Gloria Coffman MANUAL DIFF REQ NO Normal [facility] Comment on above: Performed By: #### C BC ####[facility] [address] [id number]. Gloria Coffman MCH (RBC) [Entitic mass] 30.1 pg Normal 25.9-34.0 [facility] Comment on above: Performed By: #### C BC ####[facility] [address] [address]Dr. Gloria Coffman MCHC (RBC) [Mass/Vol] 33.3 g/dL Normal 29.9-35.2 [facility] Comment on above: Performed By: #### C BC ####[facility] [address] [place], [place] [address]Dr. Gloria Coffman MCV (RBC) [Entitic vol] 90.6 fL Normal 80.0-94.0 [facility] Comment on above: Performed By: #### C BC ####[facility] [address] [place], [place] [address]Dr. Gloria Coffman MONO # 0.7 103/ul Normal 0.3-0.8 [facility] Comment on above: Performed By: #### C BC ####[facility] [address] [address]Dr. Gloria Coffman Monocytes/100 WBC (Bld) 7.5 % Normal 1.7-12.0 [facility] Comment on above: Performed By: #### C BC ####[facility] [address] [place], [place] [address]DrJenna Coffman NEUT # 7.5 103/ul Critically high 1.4-6.5 [facility] Comment on above: Performed By: #### C BC ####[facility] [address] [place], [place] [address]DrJenna Coffman Neutrophils/100 WBC (Bld) 78.1 % Critically high 43.0-75.0 [facility] Comment on above: Performed By: #### C BC ####[facility] [address] [id number]. Gloria Coffman Platelet mean volume (Bld) [Entitic vol] 10.2 fL Normal 9.5-13.5 [facility] Comment on above: Performed By: #### C BC ####[facility] [address] [place], [place] [address]Bb. Gloria Coffman PLT 243 103/ul Normal 150-450 [facility] Comment on above: Performed By: #### C BC ####[facility] [address] [id number]. Gloria Coffman RBC 4.58 106/ul Critically low 4.70-6.10 [facility] Comment on above: Performed By: #### C BC ####[facility] [address] [id number]. Gloria Coffman WBC 9.6 103/ul Normal 4.0-11.0 [facility] Comment on above: Performed By: #### C BC ####[facility] [address] [phone]. Gloria Coffman CT STROKE HEAD WOon 10-13-19 CT STROKE HEAD WO EXAMINATION: CT STROKE [...] and symmetry. No herniation or hydrocephalus. The omsquera matter/white matter differentiation is maintained throughout. No [...] by: GAVIN ALBERT Date: 2021-10-12 18:35 Normal [facility] CTA HEAD WO W CONon 10-13-19 22 CTA HEAD WO W CON EXAMINATION: CTA HEAD WO W CON HISTORY: Acute headache COMPARISON: None. TECHNIQUE: Contrast enhanced neck CT arteriogram was performed. Scanning performed during the arterial phase through the [place] of [place]. 3D reconstructions were rendered on [...] with the basilar artery. Basilar artery: Normal. occupational therapist assistant: Normal bilaterally. Aneurysm: None. Dural venous sinuses: [...] by: SUJATHA العلي Date: 2021-10-12 19:28 Normal [facility] POINT OF CARE GLUCOSEon 10-02 Glucose [Mass/Vol] 104 mg/dL Normal 74-106 [facility] Comment on above: Performed By: #### P OCGLUC #### [facility] [address] [place] [address] Dr. Gloria Coffman PROF 14(COMP METB)on 022 Albumin [Mass/Vol] 4.1 g/dL Normal 3.4-5.0 [facility] Comment on above: Performed By: #### C MP #### [facility] [address] [place] [address] Dr. Gloria Coffman Albumin/Globulin [Mass ratio] 1.2 {ratio} Normal [facility] Comment on above: Performed By: #### C MP #### [facility] [address] [place] [address] Dr. Gloria Coffman ALP [Catalytic activity/Vol] 63 U/L Normal 46-116 [facility] Comment on above: Performed By: #### C MP #### [facility] [address] [place] [address] Dr. Gloria Coffman ALT [Catalytic activity/Vol] 39 U/L Normal 16-63 [facility] Comment on above: Performed By: #### C MP #### [facility] [address] [place] [address] Dr. Gloria Coffman Anion gap [Moles/Vol] 13.4 mmol/L Normal Th [facility] Comment on above: Performed By: #### C MP #### [facility] [address] [place] [address] Dr. Gloria Coffman AST [Catalytic activity/Vol] 15 U/L Normal 15-37 [facility] Comment on above: Performed By: #### C MP #### [facility] [address] [place] [address] Dr. Gloria Coffman Bilirubin [Mass/Vol] 0.4 mg/dL Normal 0.2-1.0 [facility] Comment on above: Performed By: #### C MP #### [facility] [address] [place] [address] Dr. Gloria Coffman Calcium [Mass/Vol] 9.2 mg/dL Normal 8.5-10.1 [facility] Comment on above: Performed By: #### C MP #### [facility] [address] [place] [address] Dr. Gloria Coffman Chloride [Moles/Vol] 105 mmol/L Normal 98-107 [facility] Comment on above: Performed By: #### C MP #### [facility] [address] [place] [address] Dr. Gloria Coffman CO2 [Moles/Vol] 26.7 mmol/L Normal 21.0-32.0 [facility] Comment on above: Performed By: #### C MP #### [facility] [address] [place] [address] Dr. Gloria Coffman Creatinine [Mass/Vol] 1.05 mg/dL Normal 0.70-1.30 [facility] Comment on above: Performed By: #### C MP #### [facility] [address] [address] [address] Gloria Coffman EGFR-AF CITIZEN [place] >60 Normal >=60 [facility] Comment on above: Performed By: #### C MP #### [facility] [address] [address] [address] Gloria Coffman EGFR-NON AF CITIZEN OF [place] >60 Normal >=60 [facility] Comment on above: Performed By: #### C MP #### [facility] [address] [address] [address] Gloria Coffman Globulin (S) [Mass/Vol] 3.4 g/dL Normal T [facility] Comment on above: Performed By: #### C MP #### [facility] [address] [place] [address] Dr. Gloria Coffman Glucose [Mass/Vol] 102 mg/dL Normal 74-106 [facility] Comment on above: Performed By: #### C MP #### [facility] [address] [address] [address] Gloria Coffman Potassium [Moles/Vol] 4.1 mmol/L Normal 3.5-5.1 [facility] Comment on above: Performed By: #### C MP #### [facility] [address] [place] [address] Dr. Gloria Coffman Protein [Mass/Vol] 7.5 g/dL Normal 6.4-8.2 [facility] Comment on above: Performed By: #### C MP #### [facility] [address] [address] [address] Gloria Coffman Sodium [Moles/Vol] 141 mmol/L Normal 136-145 [facility] Comment on above: Performed By: #### C MP #### [facility] [address] [address] [address] Gloria Coffman Urea nitrogen [Mass/Vol] 18.0 mg/dL Normal 7.0-18.0 [facility] Comment on above: Performed By: #### C MP #### [facility] [address] [place], [place] [address] Dr. Gloria Coffman Urea nitrogen/Creatinine [Mass ratio] 17.1 mg/mg Normal [facility] Comment on above: Performed By: #### C MP #### [facility] [address] [place], [place] [address] Dr. Gloria Coffman Covid-19 PCR ([facility])on SARS-CoV-2 (COVID-19) RNA LANE+probe Ql (Unsp spec) Detected Critically abnormal NOT DETECTED [facility] Comment on above: Result Comment: This test is not yet approved or cleared by the [place] FDA. When there are no FDA-approved or cleared tests available, and other criteria are met, FDA can make tests available under an emergency access mechanism called an Emergency Use Authorization (EUA). The EUA for this test is supported by the Feed Research Technician of Health and Human Service's (HHS's) declaration [...] longer be used). Performed By: #### C [facility] ####[facility] [address] [place], [place] [address]CaDr. Gloria Coffman Vital Signs Date Time Vital Sign Value Performing Clinician Facility 04-05-2024 09:32-0500 Body height 177.8 cm Barak Douglas DO Work Phone: [facility] 04-05-2024 09:32-0500 Body mass index (BMI) [Ratio] 29.7 kg/m2 Barak Douglas DO Work Phone: [facility] 04-05-2024 09:32-0500 Body weight 93.89 kg Barak Douglas DO Work Phone: [facility] 03-14-2024 11:33-0500 Diastolic blood pressure 61 mm[Hg] Misty Wells MD Work Phone: [facility] 03-14-2024 11:33-0500 Heart rate 57 /min Misty Wells MD Work Phone: [facility] 03-14-2024 11:33-0500 Respiratory rate 16 /min Misty Wells MD Work Phone: [facility] 03-14-2024 11:33-0500 SaO2% (BldA) [Mass fraction] 98 % Misty Wells MD Work Phone: [facility] 03-14-2024 11:33-0500 Systolic blood pressure 105 mm[Hg] Misty Wells MD Work Phone: [facility] 03-14-2024 11:00-0500 Body temperature 98.6 [degF] Misty Wells MD Work Phone: [facility] 03-14-2024 09:52-0500 Body height 177.8 cm Misty Wells MD Work Phone: [facility] 03-14-2024 09:52-0500 Body weight 88.45 kg Misty Wells MD Work Phone: [facility] 02-05-2024 11:42-0400 Body height 177.8 cm Barak Douglas DO Work Phone: [facility] 02-05-2024 11:42-0400 Body mass index (BMI) [Ratio] 29.7 kg/m2 Barak Douglas DO Work Phone: [facility] 02-05-2024 11:42-0400 Body weight 93.89 kg Barak Douglas DO Work Phone: [facility] 02-05-2024 11:42-0400 Diastolic blood pressure 88 mm[Hg] Barak Douglas DO Work Phone: [facility] 02-05-2024 11:42-0400 Systolic blood pressure 142 mm[Hg] Barak Douglas DO Work Phone: [facility] 05-21-2023 15:15-0500 Diastolic blood pressure 86 mm[Hg] MD Misty Wells Work Phone: [facility] 05-21-2023 15:15-0500 Heart rate 85 /min MD Misty Wells Work Phone: [facility] 05-21-2023 15:15-0500 Respiratory rate 16 /min MD Misty Wells Work Phone: [facility] 05-21-2023 15:15-0500 SaO2% (BldA) [Mass fraction] 100 % MD Misty Wells Work Phone: [facility] 05-21-2023 15:15-0500 Systolic blood pressure 132 mm[Hg] MD Misty Wells Work Phone: [facility] 05-21-2023 14:17-0500 Body temperature 98 [degF] MD Misty Wells Work Phone: [facility] 05-21-2023 13:47-0500 Inhaled oxygen flow rate 10 L/min MD Misty Wells Work Phone: [facility] 05-21-2023 12:39-0500 Body height 177.8 cm MD Misty Wells Work Phone: [facility] 05-21-2023 12:39-0500 Body mass index (BMI) [Ratio] 30.7 kg/m2 MD Misty Wells Work Phone: [facility] 05-21-2023 12:39-0500 Body weight 97 kg MD Misty Wells Work Phone: [facility] 05-11-2023 08:15-0500 Body height 177.8 cm Bruce Galvan Other [facility] Other 05-11-2023 08:15-0500 Body mass index (BMI) [Ratio] 27.98 kg/m2 Bruce Galvan Other [facility] Other 05-11-2023 08:15-0500 Body weight 88.45 kg Bruce Galvan Other [facility] Other 04-06-2023 08:00-0500 Body height 177.8 cm Montse Abraham Other [facility] Other 04-06-2023 08:00-0500 Body mass index (BMI) [Ratio] 27.98 kg/m2 Montse Rosario Other [facility] Other 04-06-2023 08:00-0500 Body weight 88.45 kg Montse Abraham Other [facility] Other 03-02-2023 08:15-0400 Body height 177.8 cm Bruce Nagyley Other [facility] Other 03-02-2023 08:15-0400 Body mass index (BMI) [Ratio] 27.98 kg/m2 Bruce Latrice Other [facility] Other 03-02-2023 08:15-0400 Body weight 88.45 kg Bruce Latrice Other [facility] Other 02-23-2023 11:00-0400 Body height 177.8 cm Bruce Galvan Other [facility] Other 02-23-2023 11:00-0400 Body mass index (BMI) [Ratio] 27.98 kg/m2 Bruce Latrice Other [facility] Other 02-23-2023 11:00-0400 Body weight 88.45 kg Bruce Latrice Other [facility] Other Encounters Encounter Date Encounter Type Care Provider Facility Start: 04-05-2024 End: 04-05-2024 Postop follow up visit related to original px Barak Douglas DO Work Phone: [facility] Comment on above: Encounter for screen ing for malignant neoplasm of colon (Primary Dx) Start: 04-05-2024 End: 04-05-2024 ambulatory BARAK DOUGLAS Not Available Start: 03-14-2024 End: 03-14-2024 Admission to same day surgery center Misty Wells MD Work Phone: [facility] [place] Start: 03-14-2024 End: 03-14-2024 ambulatory Misty Wells MD Work Phone: [facility] Work Phone: Start: 02-05-2024 End: 02-05-2024 Patient encounter procedure Barak Douglas DO Work Phone: [facility] Comment on above: Encounter for screen ing for malignant neoplasm of colon Start: 02-05-2024 End: 02-05-2024 ambulatory BARAK DOUGLAS Not Available Start: 08-17-2023 End: 08-18-2023 ambulatory [facility] Facility:[facility] Start: 08-12-2023 End: 08-12-2023 ambulatory [facility] Work Phone: Start: 08-12-2023 End: 08-12-2023 Patient encounter procedure [facility] Work Phone: Start: 07-01-2023 End: 07-01-2023 Patient encounter procedure [facility] Work Phone: Start: 06-01-2023 End: 06-01-2023 ambulatory Bruce Galvan Other [facility] Other Start: 06-01-2023 Postop follow up vis it related to original px Bruce Galvan [facility] Start: 05-21-2023 Non-patient / Non-visit MD Quinn Wells Work Phone: [facility] Work Phone: Start: 05-21-2023 End: 05-21-2023 ambulatory Misty Wells Facility:[facility] Start: 05-13-2023 End: 05-13-2023 Patient encounter procedure MD Misty Wells Work Phone: [facility] Work Phone: Start: 05-13-2023 End: 05-13-2023 ambulatory MD Misty Wells Work Phone: [facility] Work Phone: Start: 05-11-2023 End: 05-11-2023 ambulatory Bruce Galvan Other [facility] Other Start: 05-11-2023 Encounter for other preprocedural examination Bruce Galvan [facility] Start: 05-11-2023 Office outpatient vi sit 25 minutes Bruce Galvan [facility] Start: 04-06-2023 End: 04-06-2023 ambulatory Montse Rosario Other [facility] Other Start: 04-06-2023 Office outpatient vi sit 15 minutes Montse Rosario [facility] Start: 03-02-2023 End: 03-02-2023 ambulatory Bruce Galvan Other [facility] Other Start: 03-02-2023 Office outpatient vi sit 25 minutes Bruce Galvan [facility] Start: 02-26-2023 End: 02-26-2023 ambulatory MD Misty Wells Work Phone: [facility] Work Phone: Start: 02-26-2023 End: 02-26-2023 Patient encounter procedure MD Misty Wells Work Phone: [facility] [place] Work Phone: Start: 02-23-2023 Office outpatient ne w 45 minutes [facility] Start: 02-23-2023 End: 02-23-2023 ambulatory MD Misty Wells Work Phone: [facility] Other Start: 02-23-2023 End: 02-23-2023 Patient encounter procedure MD Misty Wells Work Phone: [facility] Start: 10-31-2022 End: 11-01-2022 ambulatory Aranza BASILIO Facility:[facility] Start: 10-13-2021 End: 10-14-2021 Evaluation and management of inpatient DR IGNACIO LAGUNAS Facility:[facility] Start: 04-11-2021 End: 04-11-[address] MISTY WELLS Facility:[facility] Start: 04-09-2021 End: 04-09-[address] MISTY WELLS Facility:[facility] Procedures Date Procedure Procedure Detail Performing Clinician Start: 03-14-2024 End: 03-14-2024 Colonoscopy Misty Wells MD Work Phone: Start: 02-26-2023 MRI of left knee MD Misty Wells Work Phone: Start: 02-23-2023 X-ray of left knee MD Misty Wells Work Phone: History of operative procedure on knee S/P arthroscopic knee surgery MD Misty Wells Work Phone: Plan of Treatment Date Care Activity Detail Author Start: 03-14-2034 Screening for malign ant neoplasm of colon [facility] Start: 04-05-2024 End: 04-05-2024 Patient encounter procedure 04/05/2024 9:30 AM EST Office Visit [facility] [address] [facility] [address] [place] [address] Barak Douglas DO [address] [facility] [address] [place] [address] [facility] Start: 03-14-2024 End: 03-14-2024 Patient encounter procedure 03/14/2024 11:30 AM EST Procedure Visit [facility] Barak Douglas, DO [address] [id number] [facility] Start: 03-14-2024 End: 03-14-2024 [facility] Start: 01-03-2024 Influenza vaccination Influenza Vacc ine (#1) [facility] Start: 05-21-2023 [facility] Start: 05-21-2023 [facility] Start: 1970 Screening for malign ant neoplasm of colon [facility] Patient Education Know your Meds [facility] Work Phone: Patient referral [facility] Work Phone: Immunizations Immunization Date Immunization Notes Care Provider Fa cili 08-14-2020 COVID-19 mRNA Comirnatwisam (Pfizer) MD Misty Wells Work Phone: [facility] 07-23-2020 COVID-19 mRNA, Comirnatwisam (Pfizer) MD Misty Wells Work Phone: [facility] Payers Date Payer Category Payer Self-pay 2023 Private Health Insurance [employer] [id number] 2023 Unknown [id number] 1971 Unknown [id number] 1971 Unknown [id number] 1971 Unknown [id number] 1971 Unknown [id number] 1971 Unknown [id number] 1959 Unknown [id number] Unknown [employer] [id number] Unknown [id number] Unknown [id number] Unknown [id number] Social History Date Type Detail Facility Start: 02-05-2024 End: 04-05-2024 Sex Assigned At [facility] [employer] Other Start: 1970 Sex Assigned At Male F [facility] Start: 05-13-2023 End: 03-14-2024 Tobacco smoking status MAIS Never smoked tobacco (finding) [facility] Start: 02-05-2024 Tobacco smoking stat us MAIS Smokes tobacco daily [facility] History of tobacco use Cigar Smoker [facility] Start: 02-05-2024 Tobacco use and exposure User of smokeless tobacco [facility] History of tobacco use Snuff User [facility] Start: 02-05-2024 End: 04-05-2024 Alcoholic beverage intake Current drinker of alcohol (finding) [facility] Start: 02-05-2024 End: 04-05-2024 Alcoholic beverage intake [facility] Start: 1970 Sex assigned at Not on file [facility] Start: 03-14-2024 Sex Male (finding) [facility] Goals Date Patient Goal Desired Activity /State Clinical Notes 10-23-2023 to 04-05-2024 Barak Douglas DO - 04/05/2024 9:30 AM Avani Douglas DO - 02/05/2024 11:45 AM EDT Note Date & Type Note Facility 04-05-2024 History of Presen t illness Narrative Images from the original note were not included. Johnathon Ludwig 1970 Johnathon Ludwig is a 53 y.o. male presents for colonoscopy HPI: HPI Patient said he is doing great. He had no problems with colonoscopy. No issues whatsoever with the anesthesia. He is having bowel movements without any difficulty. No abdominal pain. As a side note he has been thinking about his alcohol usage in need to limit or quit drinking. OBJECTIVE: Physical Exam Constitutional: Appearance: Normal appearance. He is not toxic-appearing. Cardiovascular: Rate and Rhythm: Regular rhythm. Abdominal: General: There is no distension. Tenderness: There is no abdominal tenderness. ASSESSMENT AND PLAN: Assessment/Plan Diagnoses and all orders for this visit: Encounter for screening for malignant neoplasm of colon We discussed findings from colonoscopy. It was normal. Would recommend repeat colonoscopy in 10 years unless a first-degree relative gets colorectal cancer. Did discuss with him the risk of alcohol usage for overall health as well as its relationship to colorectal cancer. He has talked to Dr. Wells regarding options to quit drinking Or to deal with his work anxiety. I discussed with him talking to his PCP again. Also even just trying a AA meeting even in a town outside of this area where he might not know anyone just to see how he felt about their process. He really appreciates the discussion. No follow-ups on file. documented in this encounter [facility] 02-05-2024 History of Presen t illness Narrative Images from the original note were not included. Johnathon Ludwig 1970 Johnathon Ludwig is a 53 y.o. male presents with chief complaint of Consult (Screening coloscopy /Prev 12 patient) HPI: HPI I did patient's colonoscopy 12 years ago, he has not having any problems since that time. He has not having any blood in the stool. He has not having any abdominal pain. He has not having any change in his bowel habits. He has not having any family members with colorectal cancer. He does drink 6-8 beers a day. He does that on almost every day he works long days and then drinks afterwards. He can not drink for a day. He has never been told he has any liver problems. He has had blood work done recently. SUBJECTIVE: MEDICATIONS: ALLERGIES Current Outpatient Medications Medication Instructions allopurinol (Zyloprim) 100 MG tablet TAKE 1 TABLET BY MOUTH EVERY DAY FOR 30 DAYS Ayush Aspirin 325 MG tablet diclofenac (Voltaren) 75 MG EC tablet ferrous sulfate 325 (65 Fe) MG EC tablet 1 tablet, Oral, 2 times daily levothyroxine (Synthroid, Levoxyl) 100 MCG tablet TAKE 1 TABLET BY MOUTH EVERY DAY IN THE MORNING ON EMPTY STOMACH FOR 90 DAYS lisinopril 20 MG tablet TAKE 1 TABLET BY MOUTH EVERY DAY FOR 30 DAYS metoprolol tartrate (LOPRESSOR) 50 mg, Oral, 2 times daily Multiple Vitamins-Minerals (Centrum Silver Adult 50+) tablet simvastatin (Zocor) 20 MG tablet TAKE 1 TABLET BY MOUTH EVERY DAY IN THE EVENING 30 DAYS No Known Allergies PAST MEDICAL HISTORY: SOCIAL HISTORY SURGICAL HISTORY: Past Medical History: Diagnosis Date Alcoholism (CMS/HCC) Arthritis Chicken pox COVID-19 Gout High cholesterol (CMS/HCC) Hypertension (CMS/HCC) Hypertension (CMS/HCC) Thyroid disease (CMS/HCC) Social History Tobacco Use Smoking status: Every Day Types: Cigars Smokeless tobacco: Current Types: Snuff Substance Use Topics Alcohol use: Yes Alcohol/week: 50.0 standard drinks of alcohol Types: 50 Cans of beer per week Drug use: Never Past Surgical History: Procedure Laterality Date COLONOSCOPY 2012 FRACTURE SURGERY 06/1999 REVIEW OF SYMPTOMS: Review of Systems Constitutional: Negative for appetite change and fatigue. HENT: Negative for trouble swallowing. Respiratory: Negative for cough and shortness of breath. Cardiovascular: Negative for chest pain. Gastrointestinal: Negative for abdominal pain. Genitourinary: Negative for hematuria. Musculoskeletal: Negative for arthralgias. Neurological: Negative for seizures. Hematological: Negative for adenopathy. OBJECTIVE: Visit Vitals BP 142/88 Ht 5' 10 Wt 207 lb BMI 29.70 kg/m Smoking Status Every Day BSA 2.15 m Physical Exam Constitutional: Appearance: Normal appearance. He is not ill-appearing. HENT: Head: Atraumatic. Eyes: General: No scleral icterus. Cardiovascular: Rate and Rhythm: Regular rhythm. Heart sounds: Normal heart sounds. Pulmonary: Breath sounds: No wheezing. Abdominal: General: There is no distension. Tenderness: There is no abdominal tenderness. Musculoskeletal: Right lower leg: No edema. Left lower leg: No edema. Neurological: Mental Status: He is alert. ASSESSMENT AND PLAN: Assessment/Plan Diagnoses and all orders for this visit: Encounter for screening for malignant neoplasm of colon - Ambulatory referral to General Surgery Plan is for colonoscopy. We discussed the prep, the procedure, the risks and the benefits and the potential complications including, but not limited to, perforation and bleeding. They would like to proceed. Additionally we discussed alcohol usage around the time of the procedure, I would not recommend any alcohol intake the day of the prep or especially the day of the procedure. He has thought about quitting, I did encourage him to continue to think about that and possibly discuss it with his family physician. He is still young and healthy and could avoid serious consequences of liver damage documented in this encounter [facility] 06-01-2023 Evaluation note Encounter Date Diagnosis Assessment [...] back in about 4 weeks for recheck [facility] Other 01-08-2024 Evaluation note* Encounter Date Diagnosis Assessment Notes Treatment Notes Treatment Clinical Notes May, Internal derangement of left knee [...] has tried physical therapy as well as anti-inflammatory medication and cortisone injection with minimal relief [...] poor healing. I have advised against the custodial use of narcotic pain medication. I have [...] of surgery particularly wound infection, deep venous thrombosis(DVT), persistent swelling, pain and stiffness after surgery, as well as worsening of pre-existing arthritic symptoms. Patient has agreed to understanding of these risks and would like to proceed. May, Acute pain of left knee (ICD-10 - M25.562) May, Preop examination (ICD-10 - Z01.818) [facility] Other 12-04-2023 Evaluation note* Encounter Date Diagnosis Assessment Notes Treatment Notes Treatment Clinical Notes Apr, Internal derangement of left knee [...] in the office today and providing supervision. [facility] Other 10-30-2023 Evaluation note* Encounter Date Diagnosis Assessment Notes Treatment Notes Treatment Clinical Notes Feb, Internal derangement of left knee [...] pain of left knee (ICD-10 - M25.562) [facility] Other 10-23-2023 Evaluation note* Encounter Date Diagnosis Assessment Notes Treatment Notes Treatment Clinical Notes Feb, Acute pain of left knee [...] is completed. 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 [facility] Other Evaluation noteNo assessment information available [facility] Work Phone: Evaluation note* Diagnosis Onset Date Resolution Status Other specified postprocedural states acute Tear of medial meniscus of left knee acute Other specified postprocedural states acute Tear of medial meniscus of left knee acute [facility] Work Phone: Evaluation note* Diagnosis Encounter for screening for malignant neoplasm of colon [facility] Encounter for screening for malignant neoplasm of colon- Primary [facility] - Reported* Type Description Date Medical History hypertensive heart disease Medical History Gout Medical History hypercholesterolemia Surgical History ORIF R ANKLE 2001 Hospitalization History VERTIGO 2021 [facility] Other Hospital Discharge instructions Additional Instructions Orthopedic surgery [...] prescribed. You may take Tylenol or ibuprofen [id number] as instructed. You should take aspirin 81 mg twice daily for 3 weeks for DVT prophylaxis. If you have any increasing pain, fever chills, or abnormal drainage or surgical wound problems you should call the office. Your follow-up should be scheduled with Dr. Galvan's office at [facility]. Please call to confirm your follow-up appointment. Dr. Bruce Galvan [address] [address] [facility] [facility] Work Phone: Summary Purpose Family History [...] Unknown Unknown Not Specified Cerebral hemorrhage Unknown Relationship Condition Age at Onset Recorded Date/T tiffany father Hypertension Unknown Coronary artery disease Unknown Obesity Unknown mother Cerebral aneurysm Unknown sister Cerebral aneurysm Unknown Alcoholism Unknown father Heart disease Unknown Unknown mother Cerebral hemorrhage Unknown Advance Directives No Advanced [...] Tear of medial meniscus of left knee Chief Complaint Admit Date Screening March 14, 2024 9:28am Additional Source Comments (unrecognized sect ion and content) No Status Records FoundNo Status Records FoundNo Status Records FoundNo Status Records Found INFORMATION SOURCE (unrecogn ized section and content) DATE CREATED AUTHOR 02/02/2022 [facility] DATE CREATED AUTHOR AUTHOR'S ORGANIZ ATION 08/18/2023 Jiang Macho [facility] DATE CREATED AUTHOR AUTHOR'S ORGANIZ ATION 04/06/2024 [facility] EPIC DATE CREATED AUTHOR AUTHOR'S ORGANIZ ATION 04/21/2024 [facility] REASON FOR VISIT (unrecogniz ed section and content) Reason Comments Consult Screening coloscopy Prev '12 patient Specialty Diagnoses / Procedures Referred By Contac t Referred To Contact General Surgery Diagnoses Encounter for screening for malignant neoplasm of colon Procedures AR OFFICE/OUTPATIENT [facility] 60 MINUTES Misty Wells MD [address] [facility] [place] [address] [facility] [address] [facility] [address] [place] [address] Referral ID Status Reason Start Date Expiration Date V isits Requested Visits Authorized [id number] Closed Specialty Services Required 01/07/2024 07/05/2024 1 1 Reason Comments pow colonoscopy Care Teams (unrecognized sec tion and content) Team Status: Active Member Role Status Asad Wells MD Primary Care Provider Active Team Status: Inactive Member Role Status Asad Wells MD Primary Care Provider Active Start: March 14, 2024 End: March 14, 2024 Barak Douglas DO Attending Provider Active Start : March 14, 2024 End: March 14, 2024 Team Status: Active Member Role Status Asad Wells MD Primary Care Provider Active Start: May 21, 2023 Bruce Galvan DO Attending Provider, Other Provider Active Start: May 21, 2023 Team Status: Inactive Member Role Status Asad Wells MD Primary Care Provider Active Start: July 01, 2023 End: July 01, 2023 Bruce Galvan DO Attending Provider Active S tart: July 01, 2023 End: July 01, 2023 Team Status: Inactive Member Role Status Asad Wells MD Primary Care Provider Active Start: [...] May 13, 2023 End: May 13, 2023 Gasfitter Relationship Specialty Start Date End Date Misty Wells MD [address] [place] [address] PCP - General Family Medicine 01/07/24 Gasfitter Relationship Specialty Start Date End Date Misty Wells MD [address] [place] [address] PCP - General Family Medicine 01/07/24 Goals (unrecognized section and content) Goals may [...] BE BASED ON THE PRIMARY CLINICAL RECORDS. [facility] [employer] [facility] provides no warranty or guarantee of the accuracy or completeness of information in this document.
--- OUTSIDE RECORDS SUMMARY | 2024-12-13 06:42 | XMS_ITS | Encounter Summary ---
Author Organization [facility] Address [address] [place] [address] Care Team Providers Care Metal Sander And Finisher Name Role Phone Ricky Wells MD Primary Care Provider [phone] Encounter Details Date Type Department Care Team (Late st Contact Info) Description 03/14/2024 Orders Only [facility] [address] [facility] [address] [place] [id number] Barak Amin DO [address] [facility] [address] [place] [address] Social History Tobacco Use Types Packs/Day Years Used Date Smoking Tobacco: Every Day Cigars Smokeless Tobacco: Current Snuff Alcohol Use Standard Drinks/Week Comments Yes 50 (1 standard drink = 0.6 oz pu re alcohol) Sex and Gender Information Value Date Recorded Sex Assigned at Not on file Legal Sex Male 6:58 PM EDT Gender Identity Not on file Sexual Orientation Not on file documented as of this encounter Plan of Treatment Not on file documented as of this encounter Procedures Procedure Name Priority Date/Time Associated Diagnosis Comments COLONOSCOPY Routine 03/14/2024 3:47 PM EST documented in this encounter Results * Colonoscopy (03/14/2024 3:47 PM EST) Anatomical Region Laterality Modality Endoscopy Barak Amin DO ENDOSCOPY PROCEDURE ORDERABLES Final Result documented in this encounter Visit Diagnoses Not on filedocumented in this encounter Care Teams Metal Sander And Finisher Relationship Specialty Start Date End Date Ricky Wells MD PCP - General Family Medicine 01/07/24 documented as of this encounter
--- OUTSIDE RECORDS SUMMARY | 2024-12-13 06:42 | XMS_ITS | Clinical Summary ---
Author Organization [facility] Address [address] [place] [address] Care Team Providers Care Manager Transport Name Role Phone Ricky Wells MD Primary Care Provider [phone] Allergies No known active allergies Medications allopurinol (Zyloprim) 100 MG tablet TAKE 1 TABLET BY MOUTH EVERY DAY FOR 30 DAYS Active Ayush Aspirin 325 MG tablet 05/13/2023 Activ e diclofenac (Voltaren) 75 MG EC tablet Active ferrous sulfate 325 (65 Fe) MG EC tablet Take 1 tablet by mouth in the morning and 1 tablet before bedtime. 01/06/2024 Active levothyroxine (Synthroid, Levoxyl) 100 MCG tablet TAKE 1 TABLET BY MOUTH EVERY DAY IN THE MORNING ON EMPTY STOMACH FOR 90 DAYS 01/29/2024 Active lisinopril 20 MG tablet TAKE 1 TABLET BY MOUTH EVERY DAY FOR 30 DAYS Active metoprolol tartrate (Lopressor) 50 MG tablet Take 50 mg by mouth in the morning and 50 mg before bedtime. Active Multiple Vitamins-Minera ls (Centrum Silver Adult 50+) tablet Active simvastatin (Zocor) 20 MG tablet TAKE 1 TABLET BY MOUTH EVERY DAY IN THE EVENING 30 DAYS Active Active Problems Problem Noted Date Diagnosed Date Encounter for screening for malignant neoplasm o f colon 02/05/2024 Family History Medical History Relation Name Comments Heart disease Father Jonathan Hypertension Father Jonathan Brain Aneurysm Mother Alcohol abuse Sister Alexia Stroke Sister Alexia Relation Name Status Comments Father Jonathan Mother Sister Alexia Social History Tobacco Use Types Packs/Day Years Used Date Smoking Tobacco: Every Day Cigars Smokeless Tobacco: Current Snuff Tobacco Cessation:Ready to Q uit: Not Asked; Counseling Given: Not Answered Alcohol Use Standard Drinks/Week Comments Yes 50 (1 standard drink = 0.6 oz pu re alcohol) Sex and Gender Information Value Date Recorded Sex Assigned at Not on file Legal Sex Male 6:58 PM EDT Gender Identity Not on file Sexual Orientation Not on file Last Filed Vital Signs Vital Sign Reading Time Taken Comments Blood Pressure 142/88 02/05/2024 11:42 AM EDT Pulse - - Temperature - - Respiratory Rate - - Oxygen Saturation - - Inhaled Oxygen Concentration - - Weight 93.9 kg (207 lb) 04/05/2024 9:32 AM EST Height 177.8 cm (5' 10 ) 04/05/2024 9:32 AM EST Body Mass Index 29.7 04/05/2024 9:32 AM EST Plan of Treatment Health Maintenance Due Date Last Done Comments CT Colonography 1971 FIT-DNA 1971 FIT 1971 FOBT 1971 Sigmoidoscopy 1971 Influenza Vaccine (#1) 2025 Colonoscopy 03/14/2034 03/14/2024, 03/14/2024 Colorectal Cancer Screening 03/14/2034 Procedures Procedure Name Priority Date/Time Associated Diagnosis Comments COLONOSCOPY Routine 03/14/2024 3:47 PM EST from Last 3 Months or Most Recently Relevant to Health Maintenance Results * Colonoscopy (03/14/2024 3:47 PM EST) Anatomical Region Laterality Modality Endoscopy Barak Amin DO ENDOSCOPY PROCEDURE ORDERABLES Final Result from Last 3 Months or Most Recently Relevant to Health Maintenance Insurance [employer] Care Teams Manager Transport Relationship Specialty Start Date End Date Ricky Wells MD PCP - General Family Medicine 01/07/24
--- OUTSIDE RECORDS SUMMARY | 2024-12-13 06:42 | XMS_ITS | Patient Health Record ---
Author Organization [facility] [place] Address [address] [place] [address] Care Team Providers Care Brazer Induction Name Role Phone Marvin Wells Primary Care Provider Alethea Whitlock Unavailable [phone] Allergies No Known Allergies Results Component Value Reference Range Notes PSA SCREENING Reviewed date:01/05/2024 08:44:04 PM Interpretation: Performing Lab: Notes/Report: [facility] , Prostate Specific Antigen Scrn 0.55 <=4.00 ng/ mL Performing Lab: see note ML - [facility] LB URIC ACID SERUM Reviewed date:01/05/2024 08:44:04 PM Interpretation: Performing Lab: Notes/Report: [facility] , Uric Acid 5.2 3.5-7.2 mg/dL Performing Lab: see note - [facility] LB TSH Reviewed date:01/05/2024 08:44:04 PM Interpretation: Performing Lab: Notes/Report: [facility] , Thyroid Stimulating Hormone 1.544 0.358-3.740 u IU/mL Performing Lab: see note ML - [facility] LB T4 Reviewed date:01/05/2024 08:44:04 PM Interpretation: Performing Lab: Notes/Report: [facility] , T4 Thyroxine 3.60 4.50-12.10 ug/dL Performing Lab: see note - [facility] LB PROF 14(COMP METB) Reviewed date:01/05/2024 08:44:04 PM Interpretation: Performing Lab: Notes/Report: [facility] , Sodium 142 136-145 mmol/L Potassium 4.4 3.5-5.1 mmol/L Chloride 105 98-107 mmol/L Carbon Dioxide 26.9 21.0-32.0 mmol/L Anion Gap 14.5 Glucose 100 74-106 mg/dL Blood Urea Nitrogen 10.0 7.0-18.0 mg/dL Creatinine 0.86 0.70-1.30 mg/dL Estimated GFR ( Violette >60 >=60 Estimated GFR (Non- Radha >60 >=60 BUN Creatinine Ratio 11.6 Calcium 9.5 8.5-10.1 mg/dL Bilirubin Total 0.4 0.2-1.0 mg/dL Aspartate Amino Transferase 22 15-37 U/L Alanine Aminotransferase 50 16-63 U/L Alkaline Phosphatase 70 46-116 U/L Total Protein 7.1 6.4-8.2 g/dL Albumin Level 3.7 3.4-5.0 g/dL Globulin 3.4 Albumin Globulin Ratio 1.1 Performing Lab: see note ML - [facility] LIPID PROFILE Reviewed date:01/05/2024 08:44:04 PM Interpretation: Performing Lab: Notes/Report: [facility] , Triglycerides 109 <=150 mg/dL Cholesterol 171 <=200 mg/dL HDL Cholesterol 66 40-60 mg/dL > or =60 mg/dl - LOW CARDIOVASCULAR RISK <40 mg/dl - HIGH CARDIOVASCULAR RISK LDL Cholesterol Calculated 84.0 <100 mg/dl OPTIMAL 100-129 mg/dl NEAR OR ABOVE OPTIMAL 130-159 mg/dl BORDERLINE HIGH 160-189 mg/dl HIGH >190 mg/dl VERY HIGH VLDL CHOLESTEROL 21.8 Chol HDL Ratio 2.6 3.3 - 4.4 LOW RISK 4.4 - 7.1 AVERAGE RISK 7.1 - 11.0 MODERATE RISK >11.0 HIGH RISK Performing Lab: see note ML - [facility] FREE T3 Reviewed date:01/05/2024 08:44:04 PM Interpretation: Performing Lab: Notes/Report: [facility] , Free T3 1.97 2.18-3.98 pg/mL Performing Lab: see note ML - [facility] LB TSH Reviewed date:02/06/2024 11:50:54 AM Interpretation: Performing Lab: Notes/Report: [facility] , Thyroid Stimulating Hormone 0.032 0.358-3.740 u IU/mL Performing Lab: see note ML - [facility] LB T4 Reviewed date:02/06/2024 11:50:54 AM Interpretation: Performing Lab: Notes/Report: [facility] , T4 Thyroxine 7.30 4.50-12.10 ug/dL Performing Lab: see note ML - [facility] LB FREE T3 Reviewed date:02/06/2024 11:50:54 AM Interpretation: Performing Lab: Notes/Report: [facility] , Free T3 2.13 2.18-3.98 pg/mL Performing Lab: see note ML - [facility] LB INSULIN Reviewed date:01/06/2024 07:16:29 PM Interpretation: Performing Lab: Notes/Report: [facility] , Insulin 13.0 2.6-24.9 uIU/mL Performed at: [facility] [address] [id number] Ground Service Equipment Mechanic: Eldon Zazueta PhD, Phone: [phone] Performing Lab: see note - [facility] LB GLYCOHEMOGLOBIN A1C Reviewed date:01/05/2024 08:44:04 PM Interpretation: Performing Lab: Notes/Report: [facility] , Glycohemoglobin A1C 5.5 4.5-6.2 % ADA RECOMMENDED LIMIT 4.0 - 6.0 ADA THERAPEUTIC TARGET < 7.0 ACTION SUGGESTED > 7.0 Estimated Average Glucose 111 Performing Lab: see note ML - [facility] LB CBC AUTO DIFF Reviewed date:01/05/2024 08:44:04 PM Interpretation: Performing Lab: Notes/Report: [facility] , White Blood Count 5.8 4.0-11.0 10 3/uL Red Blood Count 4.53 4.70-6.10 10 6/uL Hemoglobin 13.8 14.0-18.0 g/dL Hematocrit 41.3 42.0-54.0 % Mean Corpuscular Volume 91.2 80.0-94.0 fL Mean Corpuscular Hemoglobin 30.5 25.9-34.0 pg Mean Corpuscular HGB Conc 33.4 29.9-35.2 g/dL Red Cell Distribution Width 12.4 11.0-15.0 % Platelet Count 217 150-450 10 3/uL Mean Platelet Volume 11.9 9.5-13.5 fL Neutrophils Percent Auto 58.7 43.0-75.0 % Lymphocytes Percent Auto 25.2 20.5-60.0 % Monocytes Percent Auto 9.2 1.7-12.0 % Eosinophils Percent Auto 5.9 0.9-7.0 % Basophils Percent Auto 0.7 0.2-2.0 % Immature Granulocytes Pct Auto 0.3 0.0-0.5 % Neutrophils Absolute Auto 3.4 1.4-6.5 10 3/uL Lymphocytes Absolute Auto 1.5 1.2-3.8 10 3/u L Monocytes Absolute Auto 0.5 0.3-0.8 10 3/uL Eosinophils Absolute Auto 0.3 0.0-0.7 10 3/uL Basophils Absolute Auto 0.0 0.0-0.1 10 3/uL Immature Granulocytes Abs Auto 0.02 0.00-0.03 10 3/uL Performing Lab: see note ML - [facility] LB Reason For Referral Diagnosis 1 Encounter for screen ing for malignant neoplasm of colon (Z12.11) Referral Organization [facility] Referring Provider First Name Marvin Referring Provider Last Name Priscilla Referring Provider [facility] rigoberto Referred Provider Barak Amin Referred Provider Specialty General Surg jimbo Referral Priority Routine Reason ghastriti Diagnosis 1 Gastritis (K29.70) Referral Organization [facility] Referring Provider First Name Marvin Referring Provider Last Name Priscilla Referring Provider [facility] rigoberto Referred Provider Barak Amin Referred Provider Specialty General Surg jimbo Referral Priority Routine Medications Medication SIG (Take, Route, Frequency, Duration) Notes Start Date End Date Status Ferrous Gluconate 324 (38 Fe) MG 1 tablet Orally bid for 30 days 02/09/2024 Not-Taking Diclofenac Sodium 75 MG 1 tablet as need ed Orally Twice a day for 90 days 01/01/2024 Active Levothyroxine Sodium 100 MCG TAKE 1 TABLET [...] EVENING 30 DAYS for 90 days Active Multivitamin - 1 tablet Orally Once a day Active Protonix 40 MG 1 tablet Orally Once a day for 30 days 12/12/2024 Active Aspirin 325 MG 1 tablet Orally Once a day for 90 days Active Allopurinol 100 MG TAKE 1 TABLET BY ODELL TH EVERY DAY FOR 30 DAYS for 90 days Active Social [...] Problem Status W/U Status Risk Notes Problem Claustrophobia (83470298) Claustrophobia (F40.240) Active confirmed Problem 268014716 Other tear of medial meniscus, current injury, left knee, initial encounter (S83.242A) Active confirmed Problem Hyperlipidemia (69973352) Hyperlipidemia (E78.5) Active confirmed Problem Hypertension (92528186) Hypertension (I10) Active confirmed Problem Anxiety (68299687) Anxiety (F41.9) Active confirmed Problem Hypothyroid (13412864) Hypothyroid (E03.9) Active confirmed Problem Arthralgia (32109031) Arthralgia (M25.50) Active confirmed Problem Allergic rhinitis (95134173) Allergic rhinitis (J30.9) Active confirmed Problem Gastritis (2428203) Gastritis (K29.70) Active confirmed Problem Well adult (692849160) Well adult (Z00.00) Active confirmed Problem Alcoholism (8345505) Alcoholism (F10.20) Active confirmed Problem Depression (704385458) Depression (F32.A) Active confirmed Vital Signs Temperature 98.5 degrees Fahrenheit 09/19/2024 Blood pressure diastolic 90 mm Hg 12/12/2024 Height 70 in 12/12/2024 Blood pressure systolic 140 mm Hg 12/12/2024 Weight 201 lbs 12/12/2024 BMI 28.84 kg/m2 12/12/2024 Encounters Encounter Location Date Provider Diagnosis [facility] [address] [place] [place] [address] 09/19/2024 Marvin Hoy Acute bronchitis, unspecified organism J20.9 [facility] [address] [place] [place] [address] 12/12/2024 Marvin Hoy Well adult Z00.00 an d Gastritis K29.70 [facility] [address] [place] [place] [address] 01/01/2024 Marvin Hoy Well adult Z00.00 [facility] [address] [place] [address] 12/17/2023 Marvin Hoy [facility] [address] [place] [place] [address] 01/05/2024 Marvin Escamillay Encounter for screening for malignant neoplasm of colon Z12.11 [facility] [address] [place] [place] [address] 01/08/2024 Marvin Hoy [facility] [address] [place] [place] [address] 02/05/2024 Marvin Escamillay Hypothyroid E03.9 [facility] [address] [place] [place] [address] 02/06/2024 Marvin Escamillay [facility] [address] [place] [place] [address] 02/15/2024 Marvin Hoy Well adult Z00.00 [facility] [address] [place] [place] [address] 03/01/2024 Alethea Whitlock [facility] [address] [place] [place] [address] 03/18/2024 Marvin Wells Assessments Encounter Date Diagnosis (ICD Code) Assessment Notes Treatment Notes Treatment Clinical Notes Section Notes 01/01/2024 Well adult (ICD-10 - Z00.00) Needs bp rechecked n- coming next week for r repeat some Arthritis - tying meds 09/19/2024 Acute bronchitis, unspecified organism (ICD-10 - J20.9) Rest and drink more liquids, especially water. You may use a humidifier or vaporizer to help keep the drainage moist. Ggep-sgj-cfalhbb Nasal Saline may help the stuffy and runny nose. Use Ibuprofen and or Tylenol as needed for fever, chills, body aches or pain. Children 5 years old should not be given zpvf-ldr-pabrfsa cough and cold medications such as guaifenesin and dextromethorphan. If you're over age 5, you may try qqbd-xzf-vwlfqff cold medications such as guaifenesin and dextromethorphan, [...] to the emergency room or call 911 12/12/2024 Gastritis (ICD-10 - K29.70) 12/12/2024 Well adult (ICD-10 - Z00.00) 01/05/2024 Encounter for screening for malignant neoplasm of colon (ICD-10 - Z12.11) 02/05/2024 Hypothyroid (ICD-10 - E03.9) 02/15/2024 Well adult (ICD-10 - Z00.00) Plan Of Treatment Pending Test Test Name Order Date CMP (COMPLETE METABOLIC PANEL) 3 CMP (COMPLETE METABOLIC PANEL) 4 HEMOGLOBIN A1C (GLYCO) 12/12/2024 HEMOGLOBIN A1C (GLYCO) 11/07/2022 HEMOGLOBIN A1C (GLYCO) 01/01/2024 INSULIN, TOTAL 01/01/2024 LIPID PANEL (CHOL/TRIG/HDL/LDL) 01/01/20 24 LIPID PANEL (CHOL/TRIG/HDL/LDL) 11/08/19 23 LIPID PANEL (CHOL/TRIG/HDL/LDL) 12/13/19 25 CBC WITH DIFF 11/07/2022 CBC WITH DIFF 01/01/2024 PSA, PROSTATE-SPECIFIC ANTIGEN 3 URIC ACID 01/01/2024 URIC ACID 12/12/2024 Urinalysis Microscopic 12/12/2024 PT - INR 12/12/2024 PSA, TOTAL 01/01/2024 CULTURE URINE 12/12/2024 PTT 12/12/2024 THYROID PANEL (T4/TSH/FREE T3) 4 THYROID PANEL (T4/TSH/FREE T3) 5 THYROID PANEL (T4/TSH/FREE T3) 4 THYROID PANEL (T4/TSH/FREE T3) 3 PSA, SCREENING 12/12/2024 CMP (COMP [place]) w/eGFR CKD-EPI 2024 CBC WITH DIFF 12/12/2024 Insurance Providers Payer Name Payer Address Payer Phone Subscriber Number Group Number Insured Name Patient Relationship to Insured Coverage Start Date Coverage End Date MMO [employer] [address] [place] [address] [id number] Anthony Junior Self - patient is the insured Medical (General) History Medical History History ICD Code Vertigo R42 Prostatitis N41.9 Hyperlipidemia E78.5 Hypertension I10 Depression F32.A Claustrophobia F40.240 Alcoholism F10.20 Arthralgia M25.50 Anxiety F41.9 Allergic rhinitis J30.9 Surgical History Surgery Date(Month/Year) Surgical Repair Rt. Tib/fib Arthroscopic medial plica ex cision, patellas chondroplasty- Dr. Pollard 05/21/2023 colonoscopy 03/14/24 Hospitalization History Reason Date(Month/Year) Vertigo
[2024-12-13 07:15] LABS: Hematocrit 29.1 % (42.0-54.0); Hemoglobin 10.0 g/dL (14.0-18.0); Immature Granulocytes Abs Auto 0.02 10^3/uL (0.00-0.03); Immature Granulocytes Pct Auto 0.3 % (0.0-0.5); Lymphocytes Absolute Auto 1.7 10^3/uL (1.2-3.8); Mean Corpuscular HGB Conc 34.4 g/dL (29.9-35.2); Mean Corpuscular Hemoglobin 31.8 pg (25.9-34.0); Mean Corpuscular Volume 92.7 fL (80.0-94.0); Platelet Count 286 10^3/uL (150-450); Red Blood Count 3.14 10^6/uL (4.70-6.10); White Blood Count 6.4 10^3/uL (4.0-11.0)
[2024-12-13 07:26] LABS: INR 0.99; Partial Thromboplastin Time 26.4 sec (22.3-36.2); Prothrombin Time 10.5 sec (9.0-11.6)
[2024-12-13 07:46] LABS: Glucose Urine UA NEGATIVE (NEGATIVE)
[2024-12-13 07:54] LABS: Alanine Aminotransferase 43 U/L (16-63); Albumin Globulin Ratio 1.2; Albumin Level 4.1 g/dL (3.4-5.0); Alkaline Phosphatase 64 U/L (46-116); Anion Gap 13.8; Aspartate Amino Transferase 21 U/L (15-37); Blood Urea Nitrogen 12.0 mg/dL (7.0-18.0); Calcium 8.7 mg/dL (8.5-10.1); Carbon Dioxide 28.8 mmol/L (21.0-32.0); Chloride 101 mmol/L (98-107); Cholesterol 171 mg/dL (<=200); Estimated GFR (African America >60 (>=60 mL/min/1.73m^2); Estimated GFR (Non-African Ame >60 (>=60 mL/min/1.73m^2); Free T3 2.62 pg/mL (2.18-3.98); Globulin 3.3 g/dL; Glucose 115 mg/dL (74-106); HDL Cholesterol 65 mg/dL (40-60); Potassium 3.6 mmol/L (3.5-5.1); Sodium 140 mmol/L (136-145); Thyroid Stimulating Hormone 2.481 uIU/mL (0.358-3.740); Total Protein 7.4 g/dL (6.4-8.2); Triglycerides 79 mg/dL (<=150); Uric Acid 6.0 mg/dL (3.5-7.2); VLDL CHOLESTEROL 15.8 mg/dL
[2024-12-13 07:57] LABS: Cast Seen? NONE SEEN #/LPF (NONE SEEN); Crystals Seen? None Seen #/HPF (None Seen); Urine Culture Indicated ALREADY ORDERED
== END 2024-12-13 06:39 | disposition home or self-care (01) ==
LOC: LAB 06:39
PROVIDERS: PCP Family Medicine; Visit Provider Family Medicine
DX: Z00.00 Encounter for general adult medical examination without abnormal findings (principal); Z12.5 Encounter for screening for malignant neoplasm of prostate
CPT/HCPCS: 36415; 80053; 80061; 81001; 83036; 84436; 84443; 84481; 84550; 85025; 85610; 85730; 87086; G0103

== ENCOUNTER 2024-12-15 14:19 | Outpatient (OUT) | payer OTHER, SELFPAY ==
--- OUTSIDE RECORDS SUMMARY | 2024-12-15 14:34 | XMS_ITS | CCD ---
Author Organization [facility] CliniSyar Care Team Providers Care Quality Compliance Consultant Name Role Phone DR IGNACIO LAGUNAS Consulting Unavailable GET, DR JAY Admitting Unavailable GET, DR JAY Attending Unavailable GET, DR JAY Primary Care Unavailable GET, DR JAY Consulting Unavailable REINECK, DR KIEL Wing Consulting Unavailluz marina WAITE, DR JEANNE Nam Consulting Unavailable TORRES, KONSTANTIN Consulting Unavailable FAWWAD, SHAIKH Celine Consulting Unavailable FALVO, SUJATHA Consulting Unavailable GET, DR JAY Admitting Unavailable GET, DR JAY Attending Unavailable GET, DR JAY Consulting Unavailable GET, DR JAY Primary Care Unavailable GET, DR JAY Admitting Unavailable GET, DR JAY Attending Unavailable GET, DR JAY Consulting Unavailable GET, DR JAY Primary Care Unavailable Bruce Pollard Unavailable MD Misty Wells Primary Care Provider [phone] DO Bruce Pollard Attending Provider [phone] Montse Rosario Unavailable MD Misty Wells Primary Care Provider [phone] DO Bruce Pollrad Attending Provider Asad CARBAJAL Attending Unavailable Aranza BASILIO Attending Unavailable Aranza BASILIO Attending Unavailable Asad CARBAJAL Attending Unavailable Misty Wells MD Primary Care Provider [phone] Misty Wells MD Primary Care Provider Barak Douglas DO Attending Provider BARAK DOUGLAS Attending Unavailable MISTY WELLS Referring Unavailable BARAK DOUGLAS Attending Unavailable Misty Wells MD Primary Care Provider [phone] Misty Wells MD Attending Provider Barak Douglas Admitting Unavailable Misty Wells Primary Care Unavailable Barak Douglas Attending Unavailable Misty Wells Attending Unavailable Misty Wells Primary Care Unavailable Misty Wells Admitting Unavailable Medications Current Medications Medication Drug Class(es) Dates Sig (Normalized) Sig (Original) allopurinol 100 mg oral tablet (14 sources) Xanthine Oxidase Inhibitor Start: 05-13-2023 take 1 tablet by mouth once daily in the morning aspirin 325 mg oral tablet (14 sources) Platelet Aggregation Inhibitor, Nonsteroidal Anti-inflammatory Drug Start: 05-13-2023 take 1 tablet by mouth once daily in the morning take 1 tablet by jennifer th every [...] delayed release oral tablet (4 sources) Start: 01-06-20 24 take 1 tablet by mouth in the morning ferrous sulfate 325 (65 Fe) MG EC tablet Take 1 tablet by mouth in the morning and 1 tablet before bedtime. 01/06/2024 Active levothyroxine sodium 0.1 mg oral tablet (6 sources) l-Thyroxine Start: 01-29-20 24 take 1 tablet by mouth once daily lisinopril 20 mg oral tablet (14 sources) Angiotensin Converting Enzyme Inhibitor Start: 05-13-19 24 take 1 tablet by mouth once daily in the morning metoprolol tartrate 50 mg oral tablet (14 sources) beta-Adrenergic Umair Start: 05-13-19 24 take 1 tablet by mouth twice daily Multiple Vitamins-Minerals (Centrum Silver Adult 50+) tablet (4 sources) Multiple Vitamins-Minerals (Centrum Silver Adult 50+) tablet Active Jx-Isy-Yoeqn-K1-Lycop en-Lutein (Centrum Silver Men) 332-67-803-300 mcg Tablet (5 sources) Start: 05-13-19 24 take 1 tablet by mouth once daily Start: 05-13-2023 take 1 tablet by jennifer th once daily Ns-Ild-Oodpg-L4-Uczlbqb-Xtoqox (Centrum Silver Men) 073-59-924-300 mcg Tablet Active 1 TAB PO Daily May 13, 2023 1:00am Start: 05-13-2023 take 1 tablet by jennifer th once daily Gw-Tuu-Wnvdh-I4-Qxljiis-Hcqklk (Centrsaba [place]allero) 270-64-308-300 mcg Tablet Active 1 TAB PO Daily May 13, 2023 12:00am simvastatin 20 mg oral tablet (14 sources) HMG-CoA Reductase Inhibitor Start: 05-13-2023 take 1 tablet by mouth once daily in the morning Completed/Discontinued Medications Medication Drug Class(es) Dates Sig (Normalized) Sig (Original) oxyCODONE hydrochloride 5 mg oral capsule (4 sources) Opioid Agonist Start: 05-21-2023 End: 03-14-2024 take 1 capsule by mouth every four to six hours Oxycodone 5 mg capsule Discontinued 5 MG PO EVERY 4-6 HOURS 20 11May 21, 2023 March 14, 2024 10:43am triamcinolone acetonide 40 mg/ml injectable suspension (4 [...] knee] Chronic Joint disorders and dislocations; trauma-related (9 sources) Other tear of medial meniscus, current injury, left knee, subsequent encounter; Translations: [Tear of medial meniscus of knee] Episodic Other aftercare (1 source) Encounter for removal of sutures Episodic Other non-traumatic joint disorders (4 sources) Pain in left knee Episodic Residual codes; unclassified (4 sources) Other specified postprocedural states; Translations: [Other postprocedural status] Episodic Residual codes; unclassified (3 sources) Postprocedural state finding; Translations: [Other specified postprocedural states] 06-29-2023 Episodic Substance-related disorders (1 source) Nicotine dependence, chewing tobacco, uncomplicated; Translations: [NICOTINE DEPEND CHEW TOBACCO UNCOMP] Onset: 10-17-2021 Chronic Unclassified (1 source) ALCOHOL ABUSE WITHDRAWAL UNSPCIFIED; Translations: [ALCOHOL ABUSE WITHDRAWAL UNSPCIFIED] Onset: 10-17-2021 Unclassified (3 sources) CONTACT W/AND (SUSP) EXPOS COVID-19; Translations: [CONTACT W/AND (SUSP) EXPOS COVID-19] Onset: 05-16-2021 Viral infection (4 sources) COVID-19; Translations: [COVID-19] [...] 10-17-2021 Episodic Other aftercare (1 source) 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; Translations: [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] Onset: 10-17-2021 Episodic Other screening for suspected conditions (not mental disorders or infectious disease) (9 sources) Patient encounter status; Translations: [Encounter for screening for malignant neoplasm of colon] Onset: 02-05-2024 02-05-2024 Episodic Other upper respiratory infections (1 source) Acute sinusitis, unspecified; Translations: [ACUTE SINUSITIS UNSPECIFIED] Onset: 05-16-2021 Episodic Unclassified (1 source) CONTACT W/AND (SUSP) EXPOS COVID-19; Translations: [CONTACT W/AND (SUSP) EXPOS COVID-19] Onset: 04-09-2021 Results Test Name Value Interpretation Reference Range Facility Urine Cultureon 12-13-2024 Bacteria identified Cx Nom (U) No Growth 1 Day PERFORMED BY: [id number] [place] [address] PATHOLOGIST LYE MACHINE OPERATOR LISETH NUGENT M.D. Normal [facility] Comment on above: Performed By: #### C UU #### [facility] [id number] [facility] Registrationon 08-18-2023 Registration [id number] 0#1.00TIFF Normal [facility] Registration [id number] 3#1.00TIFF Normal [facility] In office Testingon 08-17-19 24 In office Testing [id number] #1.00TIFF Normal [facility] Alanine aminotransferase [En zymatic activity/volume] in Serum or PlasmaOrdered By: Bruce Pollard on 05-13-2023 ALT [Catalytic activity/Vol] 35 U/L 7-52 [facility] Albumin [Mass/volume] in Ser um or Plasma by Bromocresol green (BCG) dye binding methoOrdered By: Bruce Pollard on 05-13-2023 Albumin BCG dye [Mass/Vol] 4.6 g/dL 3.5-5.7 [facility] Alkaline phosphatase [Enzyma tic activity/volume] in Serum or PlasmaOrdered By: Bruce Pollard on 05-13-2023 ALP [Catalytic activity/Vol] 61 U/L 34-104 [facility] Aspartate aminotransferase [ Enzymatic activity/volume] in Serum or PlasmaOrdered By: Bruce Pollard on 05-13-2023 AST [Catalytic activity/Vol] 20 U/L 13-39 [facility] Basophils Auto (Bld) [#/Vol] Ordered By: Bruce Pollard on 05-13-2023 Basophils (Bld) [#/Vol] 0.0 10*3/uL 0.0-0.2 [facility] Basophils/100 WBC Auto (Bld) Ordered By: Bruce Pollard on 05-13-2023 Basophils/100 WBC (Bld) 0.4 % . [facility] Bilirubin.total [Mass/volume ] in Serum or PlasmaOrdered By: Bruce Pollard on 05-13-2023 Bilirubin [Mass/Vol] 0.5 mg/dL 0.3-1.0 [facility] Calcium [Mass/volume] in Ser um or PlasmaOrdered By: Bruce Pollard on 05-13-2023 Calcium [Mass/Vol] 9.7 mg/dL 8.6-10.3 [facility] Carbon dioxide, total [Moles /volume] in Serum or PlasmaOrdered By: Bruce Pollard on 05-13-2023 CO2 [Moles/Vol] 30.0 mmol/L 21.0-31.0 [facility] Chloride [Moles/volume] in S sara or PlasmaOrdered By: Bruce Pollard on 05-13-2023 Chloride [Moles/Vol] 105 mmol/L 98-107 [facility] Creatinine [Mass/volume] in Serum or PlasmaOrdered By: Bruce Pollard on 05-13-2023 Creatinine [Mass/Vol] 1.07 mg/dL 0.70-1.30 [facility] Eosinophils Auto (Bld) [#/Vo l]Ordered By: Bruce Pollard on 05-13-2023 Eosinophils (Bld) [#/Vol] 0.2 10*3/uL 0.0-0.45 [facility] Eosinophils/100 WBC Auto (Bl d)Ordered By: Bruce Pollard on 05-13-2023 Eosinophils/100 WBC (Bld) 3.7 % . [facility] Erythrocyte distribution wid th Auto (RBC) [Ratio]Ordered By: Bruce Pollard on 05-13-2023 Erythrocyte distribution width (RBC) [Ratio] 13.2 % 12.0-14.8 [facility] Globulin Calc (S) [Mass/Vol] Ordered By: Bruce Pollard 05-13-2023 Globulin (S) [Mass/Vol] 2.5 g/dL [facility] Glucose [Mass/volume] in Ser um or PlasmaOrdered By: Bruce Pollard on 05-13-2023 Glucose [Mass/Vol] 97 mg/dL 70-100 [facility] Hematocrit Auto (Bld) [Volum e fraction]Ordered By: Bruce Pollard on 05-13-2023 Hematocrit (Bld) [Volume fraction] 41.2 % 38.8-50.0 [facility] Hemoglobin [Mass/volume] in BloodOrdered By: Bruce Pollard on 05-13-2023 Hemoglobin (Bld) [Mass/Vol] 14.1 g/dL 13.0-17.0 [facility] Leukocytes [#/volume] correc melanie for nucleated erythrocytes in Blood by Automated counOrdered By: Bruce Pollard on 05-13-2023 WBC corrected for nucl RBC Auto (Bld) [#/Vol] 6.4 10*3/uL 4.1-10.5 [facility] Lymphocytes Auto (Bld) [#/Vo l]Ordered By: Bruce Pollard on 05-13-2023 Lymphocytes (Bld) [#/Vol] 1.6 10*3/uL 1.00-4.8 [facility] Lymphocytes/100 WBC Auto (Bl d)Ordered By: Bruce Pollard on 05-13-2023 Lymphocytes/100 WBC (Bld) 24.8 % . [facility] MCH Auto (RBC) [Entitic mass ]Ordered By: Bruce Pollard on 05-13-2023 MCH (RBC) [Entitic mass] 31.1 pg 27.5-35.2 [facility] MCHC Auto (RBC) [Mass/Vol]Or dered By: Bruce Pollard on 05-13-2023 MCHC (RBC) [Mass/Vol] 34.3 g/dL 32.5-35.6 [facility] MCV Auto (RBC) [Entitic vol] Ordered By: Bruce Pollard on 05-13-2023 MCV (RBC) [Entitic vol] 90.8 fL 83.5-101 [facility] Monocytes Auto (Bld) [#/Vol] Ordered By: Bruce Pollard on 05-13-2023 Monocytes (Bld) [#/Vol] 0.6 10*3/uL 0.0-0.8 [facility] Monocytes/100 WBC Auto (Bld) Ordered By: Bruce Pollard on 05-13-2023 Monocytes/100 WBC (Bld) 9.1 % . [facility] Neutrophils Auto (Bld) [#/Vo l]Ordered By: Bruce Pollard on 05-13-2023 Neutrophils (Bld) [#/Vol] 4.0 10*3/uL 1.8-7.7 [facility] Neutrophils/100 WBC Auto (Bl d)Ordered By: Bruce Pollard on 05-13-2023 Neutrophils/100 WBC (Bld) 62.0 % . [facility] No Panel InformationOrdered By: Bruce Pollard on 05-13-2023 Estimated GFR (CKD-EPI) > 60.0 mL/Min [facility] Creatinine Clearance (Chem N/A [facility] Nucleated erythrocytes [Pres ence] in Blood by Automated countOrdered By: Bruce Pollard on 05-13-2023 Nucleated RBC Auto Ql (Bld) 0.1 /100{WBC} 0-0.5 [facility] Platelet mean volume Auto (B ld) [Entitic vol]Ordered By: Bruce Pollard on 05-13-2023 Platelet mean volume (Bld) [Entitic vol] 8.7 fL 6.6-10.1 [facility] Platelets Auto (Bld) [#/Vol] Ordered By: Bruce Pollard on 05-13-2023 Platelets (Bld) [#/Vol] 266 10*3/uL 150-450 [facility] Potassium [Moles/volume] in Serum or PlasmaOrdered By: Bruce Pollard on 05-13-2023 Potassium [Moles/Vol] 4.3 mmol/L 3.5-5.1 [facility] Protein [Mass/volume] in Ser um or PlasmaOrdered By: Bruce Pollard on 05-13-2023 Protein [Mass/Vol] 7.1 g/dL 6.4-8.9 [facility] RBC Auto (Bld) [#/Vol]Ordere d By: Bruce Pollard on 05-13-2023 RBC (Bld) [#/Vol] 4.54 10*6/uL 3.90-5.60 [facility] Serum or plasma albumin/glob ulin mass ratioOrdered By: Bruce Pollard on 05-13-2023 Albumin/Globulin [Mass ratio] 1.8 {ratio} [facility] Serum or plasma anion gap de terminationOrdered By: Bruce Pollard on 05-13-2023 Anion gap [Moles/Vol] 9.3 mmol/L 6.0-15.0 [facility] Sodium [Moles/volume] in Ser um or PlasmaOrdered By: Bruce Pollard on 05-13-2023 Sodium [Moles/Vol] 140 mmol/L 136-145 [facility] Urea nitrogen [Mass/volume] in Serum or PlasmaOrdered By: Bruce Pollard on 05-13-2023 Urea nitrogen [Mass/Vol] 15 mg/dL 7-25 [facility] WBC Auto (Bld) [#/Vol]Ordere d By: Bruce Pollard on 05-13-2023 WBC (Bld) [#/Vol] 6.4 10*3/uL 4.1-10.5 [facility] In office Testingon 11-06-19 23 In office Testing [id number] 1#1.00CD:127 Normal [facility] Consenton 10-31-2022 Consent [id number] 7#1.00CD:127 Normal [facility] Registrationon 10-31-2022 Registration [id number] 1#1.00CD:127 Normal [facility] CBC AUTO DIFFon 10-14-2021 BASO # 0.0 103/ul Normal 0.0-0.1 [facility] Comment on above: Performed By: #### C BC #### [facility] [address] [place] [address] Dr. Gloria Coffman Basophils/100 WBC (Bld) 0.1 % Critically low 0.2-2.0 [facility] Comment on above: Performed By: #### C BC #### [facility] [address] [place] [address] Dr. Gloria Coffman EO # 0.0 103/ul Normal 0.0-0.7 [facility] Comment on above: Performed By: #### C BC #### [facility] [address] [place] [address] Dr. Gloria Coffman Eosinophils/100 WBC (Bld) 0.0 % Critically low 0.9-7.0 [facility] Comment on above: Performed By: #### C BC #### [facility] [address] [place] [address] Dr. Gloria Coffman Erythrocyte distribution width (RBC) [Ratio] 13.1 % Normal 11.0-15.0 [facility] Comment on above: Performed By: #### C BC #### [facility] [address] [place] [address] Dr. Gloria Coffman Hematocrit (Bld) [Volume fraction] 41.4 % Critically low 42.0-54.0 [facility] Comment on above: Performed By: #### C BC #### [facility] [address] [place] [address] Dr. Gloria Coffman Hemoglobin (Bld) [Mass/Vol] 13.6 g/dL Critically low 14.0-18.0 [facility] Comment on above: Performed By: #### C BC #### [facility] [address] [place] [address] Dr. Gloria Coffman IG # 0.02 10e3/ul Normal 0.00-0.03 [facility] Comment on above: Performed By: #### C BC #### [facility] [address] [place] [address] Dr. Gloria Coffman IG % 0.2 % Normal 0.0-0.5 [facility] Comment on above: Performed By: #### C BC #### [facility] [address] [place] [address] Dr. Gloria Coffman LYMPH # 0.8 103/ul Critically low 1.2-3.8 [facility] Comment on above: Performed By: #### C BC #### [facility] [address] [place] [address] Dr. Gloria Coffman Lymphocytes/100 WBC (Bld) 7.3 % Critically low 20.5-60.0 [facility] Comment on above: Performed By: #### C BC #### [facility] [address] [place] [address] Dr. Gloria Coffman MANUAL DIFF REQ NO Normal [facility] Comment on above: Performed By: #### C BC #### [facility] [address] [place] [address] Dr. Gloria Coffman MCH (RBC) [Entitic mass] 30.4 pg Normal 25.9-34.0 [facility] Comment on above: Performed By: #### C BC #### [facility] [address] [place] [address] Dr. Gloria Coffman MCHC (RBC) [Mass/Vol] 32.9 g/dL Normal 29.9-35.2 [facility] Comment on above: Performed By: #### C BC #### [facility] [address] [place] [address] Dr. Gloria Coffman MCV (RBC) [Entitic vol] 92.6 fL Normal 80.0-94.0 [facility] Comment on above: Performed By: #### C BC #### [facility] [address] [place] [address] Dr. Gloria Coffman MONO # 0.4 103/ul Normal 0.3-0.8 [facility] Comment on above: Performed By: #### C BC #### [facility] [address] [place] [address] Dr. Gloria Coffman Monocytes/100 WBC (Bld) 4.0 % Normal 1.7-12.0 [facility] Comment on above: Performed By: #### C BC #### [facility] [address] [place] [address] Dr. Gloria Coffman NEUT # 9.3 103/ul Critically high 1.4-6.5 [facility] Comment on above: Performed By: #### C BC #### [facility] [address] [place] [address] Dr. Gloria Coffman Neutrophils/100 WBC (Bld) 88.4 % Critically high 43.0-75.0 [facility] Comment on above: Performed By: #### C BC #### [facility] [address] [place] [address] Dr. Gloria Coffman Platelet mean volume (Bld) [Entitic vol] 12.4 fL Normal 9.5-13.5 [facility] Comment on above: Performed By: #### C BC #### [facility] [address] [address] [address] Gloria Coffman PLT 133 103/ul Critically low 150-450 [facility] Comment on above: Performed By: #### C BC #### [facility] [address] [address] [address] Gloria Coffman RBC 4.47 106/ul Critically low 4.70-6.10 [facility] Comment on above: Performed By: #### C BC #### [facility] [address] [place] [address] Dr. Gloria Coffman WBC 10.5 103/ul Normal 4.0-11.0 [facility] Comment on above: Performed By: #### C BC #### [facility] [address] [place] [address] Dr. Gloria Coffman CTA NECK WO W [...] by: JEANNE WAITE Date: 2021-10-14 09:38 Normal [facility] ECHOCARDIO M/2D COMPLETEon 0 10-14-2021 ECHOCARDIO M/2D COMPLETE Patient: JOHNATHON VIRGEN Exam Date: 10/14/2021 : 1970 Gender:M Ordering : DR MISTY WELLS . Admission #: [id number] Family : Order #: [id number] CLICK HERE TO VIEW EXAM ECHOCARDIOGRAM REPORT [...] Area(A4C): 16.90 cm2 Left Atrium Systolic Volume(A2C): 42842 mm3 Left Atrium Systolic Volume(A4C): 66962 mm3 Mitral Valve MV E to A Ratio: 1.20 Deceleration [place]: 4200 mm/s2 Mitral Valve A-Wave Peak Velocity: [...] Ziegler M.D. on 10/15/2021 at 18:05 Normal [facility] MRI BRAIN WO CONon 2 MRI BRAIN [...] by: JEANNE WAITE Date: 2021-10-14 12:05 Normal [facility] PROF 14(COMP METB)on 10-14- 022 Albumin [Mass/Vol] 3.9 g/dL Normal 3.4-5.0 [facility] Comment on above: Performed By: #### C MP #### [facility] [address] [place] [address] Dr. Gloria Coffman Albumin/Globulin [Mass ratio] 1.1 {ratio} Normal [facility] Comment on above: Performed By: #### C MP #### [facility] [address] [address] [address] Gloria Coffman ALP [Catalytic activity/Vol] 54 U/L Normal 46-116 [facility] Comment on above: Performed By: #### C MP #### [facility] [address] [place] [address] Dr. Gloria Coffman ALT [Catalytic activity/Vol] 29 U/L Normal 16-63 [facility] Comment on above: Performed By: #### C MP #### [facility] [address] [place] [address] Dr. Gloria Coffman Anion gap [Moles/Vol] 14.1 mmol/L Normal [facility] Comment on above: Performed By: #### C MP #### [facility] [address] [place] [address] Dr. Gloria Coffman AST [Catalytic activity/Vol] 7 U/L Critically low 15-37 [facility] Comment on above: Performed By: #### C MP #### [facility] [address] [place] [address] Dr. Gloria Coffman Bilirubin [Mass/Vol] 0.5 mg/dL Normal 0.2-1.0 [facility] Comment on above: Performed By: #### C MP #### [facility] [address] [place] [address] Dr. Gloria Coffman Calcium [Mass/Vol] 8.8 mg/dL Normal 8.5-10.1 [facility] Comment on above: Performed By: #### C MP #### [facility] [address] [address] [address] Gloria Coffman Chloride [Moles/Vol] 106 mmol/L Normal 98-107 [facility] Comment on above: Performed By: #### C MP #### [facility] [address] [address] [address] Gloria Coffman CO2 [Moles/Vol] 24.8 mmol/L Normal 21.0-32.0 [facility] Comment on above: Performed By: #### C MP #### [facility] [address] [place] [address] Dr. Gloria Coffman Creatinine [Mass/Vol] 0.88 mg/dL Normal 0.70-1.30 [facility] Comment on above: Performed By: #### C MP #### [facility] [address] [place] [address] Dr. Gloria Coffman EGFR-AF [place] ISLANDER >60 Normal >=60 [facility] Comment on above: Performed By: #### C MP #### [facility] [address] [address] [address] Gloria Coffman EGFR-NON AF [place] ISLANDER >60 Normal >=60 [facility] Comment on above: Performed By: #### C MP #### [facility] [address] [address] [address] Gloria Coffman Globulin (S) [Mass/Vol] 3.5 g/dL Normal [facility] Comment on above: Performed By: #### C MP #### [facility] [address] [address] [address] Gloria Coffman Glucose [Mass/Vol] 156 mg/dL Critically high 74-106 [facility] Comment on above: Performed By: #### C MP #### [facility] [address] [address] [address] Gloria Coffman Potassium [Moles/Vol] 3.9 mmol/L Normal 3.5-5.1 [facility] Comment on above: Performed By: #### C MP #### [facility] [address] [place] [address] Dr. Gloria Coffman Protein [Mass/Vol] 7.4 g/dL Normal 6.4-8.2 [facility] Comment on above: Performed By: #### C MP #### [facility] [address] [place] [address] Dr. Gloria Coffman Sodium [Moles/Vol] 141 mmol/L Normal 136-145 [facility] Comment on above: Performed By: #### C MP #### [facility] [address] [place] [address] Dr. Gloria Coffman Urea nitrogen [Mass/Vol] 15.0 mg/dL Normal 7.0-18.0 [facility] Comment on above: Performed By: #### C MP #### [facility] [address] [place] [address] Dr. Gloria Coffman Urea nitrogen/Creatinine [Mass ratio] 17.0 mg/mg Normal [facility] Comment on above: Performed By: #### C MP #### [facility] [address] [place] [address] Dr. Gloria Coffman CBC W MANUAL DIFFon 10-14-19 22 ATYPICAL LYMPH # Normal [facility] Comment on above: Performed By: #### C BCMAN #### [facility] [address] [place] [address] Dr. Gloria Coffman ATYPICAL LYMPH % Normal [facility] Comment on above: Performed By: #### C BCMAN #### [facility] [address] [place] [address] Dr. Gloria Coffman BAND # Normal 0.0-0.3 [facility] Comment on above: Performed By: #### C BCMAN #### [facility] [address] [place] [address] Dr. Gloria Coffman BAND % Normal 0-5 [facility] Comment on above: Performed By: #### C BCMAN #### [facility] [address] [place] [address] Dr. Gloria Coffman BASOM # 0.18 103/ul Critically high 0.00-0.10 [facility] Comment on above: Performed By: #### C BCMAN #### [facility] [address] [place] [address] Dr. Gloria Coffman BASOM % 2.0 % Normal 0.2-2.0 [facility] Comment on above: Performed By: #### C BCMAN #### [facility] [address] [place] [address] Dr. Gloria Coffman BLAST # Normal [facility] Comment on above: Performed By: #### C BCMAN #### [facility] [address] [place] [address] Dr. Gloria Coffman BLAST % Normal [facility] Comment on above: Performed By: #### C BCMAN #### [facility] [address] [place] [address] Dr. Gloria Coffman CORRECTED WBC Normal 4.0-11.0 [facility] Comment on above: Performed By: #### C BCOCTAVIO #### [facility] [address] [place] [address] Dr. Gloria Coffman EOS # 0.00 103/ul Normal 0.00-0.70 [facility] Comment on above: Performed By: #### C BCOCTAVIO #### [facility] [address] [place] [address] Dr. Gloria Coffman EOS% 0.0 % Critically low 0.9-7.0 [facility] Comment on above: Performed By: #### C BCOCTAVIO #### [facility] [address] [place] [address] Dr. Gloria Coffman HCT 41.8 % Critically low 42.0-54.0 [facility] Comment on above: Performed By: #### C BCMAN #### [facility] [address] [place] [address] Dr. Gloria Coffman HGB 13.6 g/dl Critically low 14.0-18.0 [facility] Comment on above: Performed By: #### C BCMAN #### [facility] [address] [place] [address] Dr. Gloria Coffman LYMPHM # 0.27 103/ul Critically low 1.20-3.80 [facility] Comment on above: Performed By: #### C BCMAN #### [facility] [address] [place] [address] Dr. Gloria Coffman LYMPHM% 3.0 % Critically low 20.5-60.0 [facility] Comment on above: Performed By: #### C EILEEN #### [facility] [address] [place] [address] Dr. Gloria Coffman MCH 30.0 pg Normal 25.9-34.0 [facility] Comment on above: Performed By: #### C EILEEN #### [facility] [address] [place] [address] Dr. Gloria Coffman MCHC 32.5 g/dl Normal 29.9-35.2 [facility] Comment on above: Performed By: #### C EILEEN #### [facility] [address] [place] [address] Dr. Gloria Coffman MCV 92.3 fL Normal 80.0-94.0 [facility] Comment on above: Performed By: #### C EILEEN #### [facility] [address] [place] [address] Dr. Gloria Coffman METAMYELOCYTE # Normal [facility] Comment on above: Performed By: #### C EILEEN #### [facility] [address] [place] [address] Dr. Gloria Coffman METAMYELOCYTE % Normal [facility] Comment on above: Performed By: #### C EILEEN #### [facility] [address] [place] [address] Dr. Gloria Coffman MONOM# 0.00 103/ul Critically low 0.30-0.80 [facility] Comment on above: Performed By: #### C EILEEN #### [facility] [address] [place] [address] Dr. Gloria Coffman MONOM% 0.0 % Critically low 1.7-12.0 [facility] Comment on above: Performed By: #### C EILEEN #### [facility] [address] [place] [address] Dr. Gloria Coffman MPV 10.5 fL Normal 9.5-13.5 [facility] Comment on above: Performed By: #### C BCMAN #### [facility] [address] [address] [address] Gloria Coffman MYELOCYTE # Normal [facility] Comment on above: Performed By: #### C BCMAN #### [facility] [address] [address] [address] Gloria Coffman MYELOCYTE % Normal [facility] Comment on above: Performed By: #### C BCMAN #### [facility] [address] [address] [address] Gloria Coffman NRBC Normal [facility] Comment on above: Performed By: #### C BCOCTAVIO #### [facility] [address] [address] [address] Gloria Coffman PLT 245 103/ul Normal 150-450 [facility] Comment on above: Performed By: #### C BCOCTAVIO #### [facility] [address] [address] [address] Gloria Coffman RBC 4.53 106/ul Critically low 4.70-6.10 [facility] Comment on above: Performed By: #### C BCOCTAVIO #### [facility] [address] [address] [address] Gloria Coffman RDW 13.2 % Normal 11.0-15.0 [facility] Comment on above: Performed By: #### C BCOCTAVIO #### [facility] [address] [address] [address] Gloria Coffman SEG # 8.46 103/ul Critically high 1.40-6.50 [facility] Comment on above: Performed By: #### C BCMAN #### [facility] [address] [address] [address] Gloria Coffman SEG % 95.0 % Critically high 43.0-75.0 [facility] Comment on above: Performed By: #### C BCMAN #### [facility] [address] [address] [address] Gloria Coffman WBC 8.9 103/ul Normal 4.0-11.0 [facility] Comment on above: Performed By: #### C BCBOWERSVILLE #### [facility] [address] [place] [address] Dr. Gloria Coffman Covid-19 PCR (CVDTB)on 10-02 SARS-CoV-2 (COVID-19) RNA LANE+probe Ql (Unsp spec) Not detected Normal NOT DETECTED [facility] Comment on above: Result Comment: When [...] for this test is supported by the [place] of [employer] and Human Service's declaration that [...] be used). Performed By: #### C VDTB #### [facility] [address] [place] [address] Dr. Gloria Coffman ETHANOL (BLD ALC)on 10-14-19 22 ALC NOTE NOTE: 80 mg/dl is the legal limit for a blood alcohol level Normal [facility] Comment on above: Performed By: #### E TH #### [facility] [address] [place] [address] Dr. Gloria Coffman Ethanol [Mass/Vol] mg/dL Normal [facility] Comment on above: Performed By: #### E TH #### [facility] [address] [place] [address] Dr. Gloria Coffman PROF 14(COMP METB)on 022 Albumin [Mass/Vol] 4.0 g/dL Normal 3.4-5.0 [facility] Comment on above: Performed By: #### C MP ####[facility] [address] [address]Dr. Gloria Augustus Albumin/Globulin [Mass ratio] 1.1 {ratio} Normal [facility] Comment on above: Performed By: #### C MP ####[facility] [address] [address]Dr. Gloria Coffman ALP [Catalytic activity/Vol] 60 U/L Normal 46-116 [facility] Comment on above: Performed By: #### C MP ####[facility] [address] [place], [place] [address]Dr. Gloria Coffman ALT [Catalytic activity/Vol] 35 U/L Normal 16-63 [facility] Comment on above: Performed By: #### C MP ####[facility] [address] [place], [place] [address]Dr. Gloria Coffman Anion gap [Moles/Vol] 14.6 mmol/L Normal [facility] Comment on above: Performed By: #### C MP ####[facility] [address] [place], [place] [address]Dr. Gloria Coffman AST [Catalytic activity/Vol] 11 U/L Critically low 15-37 [facility] Comment on above: Performed By: #### C MP ####[facility] [address] [place], [place] [address]Dr. Gloria Coffman Bilirubin [Mass/Vol] 0.6 mg/dL Normal 0.2-1.0 [facility] Comment on above: Performed By: #### C MP ####[facility] [address] [place], [place] [address]Dr. Gloria Coffman Calcium [Mass/Vol] 9.2 mg/dL Normal 8.5-10.1 [facility] Comment on above: Performed By: #### C MP ####[facility] [address] [place], [place] [address]Dr. Gloria Coffman Chloride [Moles/Vol] 104 mmol/L Normal 98-107 [facility] Comment on above: Performed By: #### C MP ####[facility] [address] [place], [place] [address]Dr. Gloria Coffman CO2 [Moles/Vol] 27.1 mmol/L Normal 21.0-32.0 [facility] Comment on above: Performed By: #### C MP ####[facility] [address] [address]Dr. Pilichristopher Coffman Creatinine [Mass/Vol] 0.98 mg/dL Normal 0.70-1.30 [facility] Comment on above: Performed By: #### C MP ####[facility] [address] [address]Dr. Gloria Augustus EGFR-AF [place]ER >60 Normal >=60 [facility] Comment on above: Performed By: #### C MP ####[facility] [address] [place], [place] [address]Dr. Gloria Coffman EGFR-NON AF [place] >60 Normal >=60 [facility] Comment on above: Performed By: #### C MP ####[facility] [address] [place], [place] [address]Dr. Gloria Coffman Globulin (S) [Mass/Vol] 3.6 g/dL Normal [facility] Comment on above: Performed By: #### C MP ####[facility] [address] [place], [place] [address]Dr. Gloria Coffman Glucose [Mass/Vol] 151 mg/dL Critically high 74-106 [facility] Comment on above: Performed By: #### C MP ####[facility] [address] [place], [place] [address]Dr. Gloria Coffman Potassium [Moles/Vol] 4.7 mmol/L Normal 3.5-5.1 [facility] Comment on above: Performed By: #### C MP ####[facility] [address] [place], [place] [address]Dr. Gloria Coffman Protein [Mass/Vol] 7.6 g/dL Normal 6.4-8.2 [facility] Comment on above: Performed By: #### C MP ####[facility] [address] [place], [place] [address]Dr. Gloria Coffman Sodium [Moles/Vol] 141 mmol/L Normal 136-145 [facility] Comment on above: Performed By: #### C MP ####[facility] [address] [place], [place] [address]Dr. Gloria Coffman Urea nitrogen [Mass/Vol] 16.0 mg/dL Normal 7.0-18.0 [facility] Comment on above: Performed By: #### C MP ####[facility] [address] [place], [place] [address]Dr. Gloria Coffman Urea nitrogen/Creatinine [Mass ratio] 16.3 mg/mg Normal [facility] Comment on above: Performed By: #### C MP ####[facility] [address] [place], [place] [address]Dr. Gloria Coffman CBC AUTO DIFFon 10-12-2021 BASO # 0.0 103/ul Normal 0.0-0.1 [facility] Comment on above: Performed By: #### C BC ####[facility] [address] [place], [place] [address]Dr. Gloria Coffman Basophils/100 WBC (Bld) 0.3 % Normal 0.2-2.0 [facility] Comment on above: Performed By: #### C BC ####[facility] [address] [place], [place] [address]DrJenna Coffman EO # 0.1 103/ul Normal 0.0-0.7 [facility] Comment on above: Performed By: #### C BC ####[facility] [address] [place], [place] [address]DrJenna Coffman Eosinophils/100 WBC (Bld) 1.5 % Normal 0.9-7.0 [facility] Comment on above: Performed By: #### C BC ####[facility] [address] [place], [place] [address]Dr. Gloria Coffman Erythrocyte distribution width (RBC) [Ratio] 13.2 % Normal 11.0-15.0 [facility] Comment on above: Performed By: #### C BC ####[facility] [address] [place], [place] [address]Dr. Gloria Coffman Hematocrit (Bld) [Volume fraction] 41.5 % Critically low 42.0-54.0 [facility] Comment on above: Performed By: #### C BC ####[facility] [address] [address]Dr. Gloria Coffman Hemoglobin (Bld) [Mass/Vol] 13.8 g/dL Critically low 14.0-18.0 [facility] Comment on above: Performed By: #### C BC ####[facility] [address] [place], [place] [address]Dr. Gloria Coffman IG # 0.03 10e3/ul Normal 0.00-0.03 [facility] Comment on above: Performed By: #### C BC ####[facility] [address] [place], [place] [address]Dr. Gloria Coffman IG % 0.3 % Normal 0.0-0.5 [facility] Comment on above: Performed By: #### C BC ####[facility] [address] [place], [place] [address]Dr. Gloria Coffman LYMPH # 1.2 103/ul Normal 1.2-3.8 [facility] Comment on above: Performed By: #### C BC ####[facility] [address] [place], [place] [address]Dr. Pilichristopher Coffman Lymphocytes/100 WBC (Bld) 12.3 % Critically low 20.5-60.0 [facility] Comment on above: Performed By: #### C BC ####[facility] [address] [place], [place] [address]DrJenna Coffman MANUAL DIFF REQ NO Normal [facility] Comment on above: Performed By: #### C BC ####[facility] [address] [place], [place] [address]Dr. Gloria Coffman MCH (RBC) [Entitic mass] 30.1 pg Normal 25.9-34.0 [facility] Comment on above: Performed By: #### C BC ####[facility] [address] [place], [place] [address]Dr. Gloria Coffman MCHC (RBC) [Mass/Vol] 33.3 g/dL Normal 29.9-35.2 [facility] Comment on above: Performed By: #### C BC ####[facility] [address] [place], [place] [address]Dr. Gloria Coffman MCV (RBC) [Entitic vol] 90.6 fL Normal 80.0-94.0 [facility] Comment on above: Performed By: #### C BC ####[facility] [address] [place], [place] [address]Dr. Gloria Coffman MONO # 0.7 103/ul Normal 0.3-0.8 [facility] Comment on above: Performed By: #### C BC ####[facility] [address] [place], [place] [address]Dr. Gloria Coffman Monocytes/100 WBC (Bld) 7.5 % Normal 1.7-12.0 [facility] Comment on above: Performed By: #### C BC ####[facility] [address] [place], [place] [address]Dr. Gloria Coffman NEUT # 7.5 103/ul Critically high 1.4-6.5 [facility] Comment on above: Performed By: #### C BC ####[facility] [address] [place], [place] [address]Dr. Gloria Coffman Neutrophils/100 WBC (Bld) 78.1 % Critically high 43.0-75.0 [facility] Comment on above: Performed By: #### C BC ####[facility] [address] [place], [place] [address]Dr. Gloria Coffman Platelet mean volume (Bld) [Entitic vol] 10.2 fL Normal 9.5-13.5 [facility] Comment on above: Performed By: #### C BC ####[facility] [address] [place], [place] [address]Dr. Gloria Coffman PLT 243 103/ul Normal 150-450 [facility] Comment on above: Performed By: #### C BC ####[facility] [address] [place], [place] [address]DrJenna Coffman RBC 4.58 106/ul Critically low 4.70-6.10 [facility] Comment on above: Performed By: #### C BC ####[facility] [address] [place], [place] [address]WcJenna Coffman WBC 9.6 103/ul Normal 4.0-11.0 [facility] Comment on above: Performed By: #### C BC ####[facility] [address] [place], [place] [address] STROKE HEAD WOon 10-13-19 22 [...] GAVIN ALBERT Date: 2021-10-12 18:35 Normal [facility] CTA HEAD WO W CONon 10-13-19 22 CTA HEAD WO W CON EXAMINATION: CTA HEAD WO W CON HISTORY: Acute headache COMPARISON: None. TECHNIQUE: Contrast enhanced neck CT arteriogram was performed. Scanning performed during the arterial phase through the [place]. 3D reconstructions were rendered on [...] with the basilar artery. Basilar artery: Normal. insurance defense paralegal: Normal bilaterally. Aneurysm: None. Dural venous sinuses: [...] by: SUJATHA العلي Date: 2021-10-12 19:28 Normal [facility] POINT OF CARE GLUCOSEon 10-02 Glucose [Mass/Vol] 104 mg/dL Normal 74-106 [facility] Comment on above: Performed By: #### P OCGLUC #### [facility] [address] [place] [address] Dr. Gloria Coffman PROF 14(COMP METB)on 022 Albumin [Mass/Vol] 4.1 g/dL Normal 3.4-5.0 [facility] Comment on above: Performed By: #### C MP #### [facility] [address] [place] [address] Dr. Gloria Coffman Albumin/Globulin [Mass ratio] 1.2 {ratio} Normal [facility] Comment on above: Performed By: #### C MP #### [facility] [address] [place] [address] Dr. Gloria Coffman ALP [Catalytic activity/Vol] 63 U/L Normal 46-116 [facility] Comment on above: Performed By: #### C MP #### [facility] [address] [place] [address] Dr. Gloria Coffman ALT [Catalytic activity/Vol] 39 U/L Normal 16-63 [facility] Comment on above: Performed By: #### C MP #### [facility] [address] [place] [address] Dr. Gloria Coffman Anion gap [Moles/Vol] 13.4 mmol/L Normal [facility] Comment on above: Performed By: #### C MP #### [facility] [address] [place] [address] Dr. Gloria Coffman AST [Catalytic activity/Vol] 15 U/L Normal 15-37 [facility] Comment on above: Performed By: #### C MP #### [facility] [address] [address] [address] Gloria Coffman Bilirubin [Mass/Vol] 0.4 mg/dL Normal 0.2-1.0 [facility] Comment on above: Performed By: #### C MP #### [facility] [address] [address] [address] Gloria Coffman Calcium [Mass/Vol] 9.2 mg/dL Normal 8.5-10.1 [facility] Comment on above: Performed By: #### C MP #### [facility] [address] [address] [address] Gloria Coffman Chloride [Moles/Vol] 105 mmol/L Normal 98-107 [facility] Comment on above: Performed By: #### C MP #### [facility] [address] [address] [address] Gloria Coffman CO2 [Moles/Vol] 26.7 mmol/L Normal 21.0-32.0 [facility] Comment on above: Performed By: #### C MP #### [facility] [address] [place] [address] Dr. Gloria Coffman Creatinine [Mass/Vol] 1.05 mg/dL Normal 0.70-1.30 [facility] Comment on above: Performed By: #### C MP #### [facility] [address] [address] [address] Gloria Coffman EGFR-AF [place]ER >60 Normal >=60 [facility] Comment on above: Performed By: #### C MP #### [facility] [address] [address] [address] Gloria Coffman EGFR-NON AF [place] >60 Normal >=60 [facility] Comment on above: Performed By: #### C MP #### [facility] [address] [place] [address] Dr. Gloria Coffman Globulin (S) [Mass/Vol] 3.4 g/dL Normal [facility] Comment on above: Performed By: #### C MP #### [facility] [address] [address] [address] Gloria Coffman Glucose [Mass/Vol] 102 mg/dL Normal 74-106 [facility] Comment on above: Performed By: #### C MP #### [facility] [address] [address] [address] Gloria Coffman Potassium [Moles/Vol] 4.1 mmol/L Normal 3.5-5.1 [facility] Comment on above: Performed By: #### C MP #### [facility] [address] [address] [address] Gloria Coffman Protein [Mass/Vol] 7.5 g/dL Normal 6.4-8.2 [facility] Comment on above: Performed By: #### C MP #### [facility] [address] [address] [address] Gloria Coffman Sodium [Moles/Vol] 141 mmol/L Normal 136-145 [facility] Comment on above: Performed By: #### C MP #### [facility] [address] [address] [address] Gloria Coffman Urea nitrogen [Mass/Vol] 18.0 mg/dL Normal 7.0-18.0 [facility] [facility] Comment on above: Performed By: #### C MP #### [facility] [address] [address] [address] Gloria Coffman Urea nitrogen/Creatinine [Mass ratio] 17.1 mg/mg Normal [facility] Comment on above: Performed By: #### C MP #### [facility] [address] [address] [address] Gloria Coffman [facility]on SARS-CoV-2 (COVID-19) RNA LANE+probe Ql (Unsp spec) Detected Critically abnormal NOT DETECTED [facility] Comment on above: Result Comment: This test is not yet approved or cleared by the [place] FDA. When there are no FDA-approved or cleared tests available, and other criteria are met, FDA can make tests available under an emergency access mechanism called an Emergency Use Authorization (EUA). The EUA for this test is supported by the Refrigerator Mover of Health and Human Service's (HHS's) declaration [...] longer be used). Performed By: #### C [facility] ####[facility] [id number] [place], [place] [address]PjJenna Coffman Vital Signs Date Time Vital Sign Value Performing Clinician Facility 04-05-2024 09:32-0500 Body height 177.8 cm Barak Douglas DO Work Phone: [facility] 04-05-2024 09:32-0500 Body mass index (BMI) [Ratio] 29.7 kg/m2 Barak Douglas DO Work Phone: [facility] 04-05-2024 09:32-0500 Body weight 93.89 kg Barak Douglas DO Work Phone: [facility] 03-14-2024 11:33-0500 Diastolic blood pressure 61 mm[Hg] Misty Wells MD Work Phone: [facility] 03-14-2024 11:33-0500 Heart rate 57 /min Misty Wells MD Work Phone: [facility] 03-14-2024 11:33-0500 Respiratory rate 16 /min Misty Wells MD Work Phone: [facility] 03-14-2024 11:33-0500 SaO2% (BldA) [Mass fraction] 98 % Misty Wells MD Work Phone: [facility] 03-14-2024 11:33-0500 Systolic blood pressure 105 mm[Hg] Misty Wells MD Work Phone: [facility] 03-14-2024 11:00-0500 Body temperature 98.6 [degF] Misty Wells MD Work Phone: [facility] 03-14-2024 09:52-0500 Body height 177.8 cm Misty Wells MD Work Phone: [facility] 03-14-2024 09:52-0500 Body weight 88.45 kg Misty Wells MD Work Phone: [facility] 02-05-2024 11:42-0400 Body height 177.8 cm Barak Douglas DO Work Phone: [facility] 02-05-2024 11:42-0400 Body mass index (BMI) [Ratio] 29.7 kg/m2 Barak Douglas DO Work Phone: [facility] 02-05-2024 11:42-0400 Body weight 93.89 kg Barak Douglas DO Work Phone: [facility] 02-05-2024 11:42-0400 Diastolic blood pressure 88 mm[Hg] Barak Douglas DO Work Phone: [facility] 02-05-2024 11:42-0400 Systolic blood pressure 142 mm[Hg] Barak Douglas DO Work Phone: [facility] 05-21-2023 15:15-0500 Diastolic blood pressure 86 mm[Hg] MD Misty Wells Work Phone: [facility] 05-21-2023 15:15-0500 Heart rate 85 /min MD Misty Wells Work Phone: [facility] 05-21-2023 15:15-0500 Respiratory rate 16 /min MD Misty Wells Work Phone: [facility] 05-21-2023 15:15-0500 SaO2% (BldA) [Mass fraction] 100 % MD Misty Wells Work Phone: [facility] 05-21-2023 15:15-0500 Systolic blood pressure 132 mm[Hg] MD Misty Wells Work Phone: [facility] 05-21-2023 14:17-0500 Body temperature 98 [degF] MD Misty Wells Work Phone: [facility] 05-21-2023 13:47-0500 Inhaled oxygen flow rate 10 L/min MD Misty Wells Work Phone: [facility] 05-21-2023 12:39-0500 Body height 177.8 cm MD Misty Wells Work Phone: [facility] 05-21-2023 12:39-0500 Body mass index (BMI) [Ratio] 30.7 kg/m2 MD Misty Wells Work Phone: [facility] 05-21-2023 12:39-0500 Body weight 97 kg MD Misty Wells Work Phone: [facility] 05-11-2023 08:15-0500 Body height 177.8 cm Bruce Pollard Other [employer] [facility] [employer] Other 05-11-2023 08:15-0500 Body mass index (BMI) [Ratio] 27.98 kg/m2 Bruce Pollard Other [employer] Other 05-11-2023 08:15-0500 Body weight 88.45 kg Bruce Pollard Other [facility] Other 04-06-2023 08:00-0500 Body height 177.8 cm Montse Rosario Other [employer] Other 04-06-2023 08:00-0500 Body mass index (BMI) [Ratio] 27.98 kg/m2 Montse Rosario Other [facility] Other 04-06-2023 08:00-0500 Body weight 88.45 kg Montse Rosario Other [facility] Other 03-02-2023 08:15-0400 Body height 177.8 cm Bruce Pollard Other [employer] Other 03-02-2023 08:15-0400 Body mass index (BMI) [Ratio] 27.98 kg/m2 Bruce Latrice Other [employer] Other 03-02-2023 08:15-0400 Body weight 88.45 kg Bruce Latrice Other [facility] Other 02-23-2023 11:00-0400 Body height 177.8 cm Bruce Latrice Other [facility] Other 02-23-2023 11:00-0400 Body mass index (BMI) [Ratio] 27.98 kg/m2 Bruce Latrice Other [facility] Other 02-23-2023 11:00-0400 Body weight 88.45 kg Bruce Latrice Other [employer] Other Encounters Encounter Date Encounter Type Care Provider Facility Start: 12-13-2024 End: 12-13-2024 ambulatory Misty Wells MD Work Phone: [facility] Work Phone: Start: 12-13-2024 End: 12-13-2024 Departed Referred Misty Gagnon MD -LAB [facility] Start: 04-05-2024 End: 04-05-2024 Postop follow up visit related to original px Barak Douglas DO Work Phone: [facility] Comment on above: Encounter for screen ing for malignant neoplasm of colon (Primary Dx) Start: 04-05-2024 End: 04-05-2024 ambulatory BARAK DOUGLAS Not Available Start: 03-14-2024 End: 03-14-2024 Admission to same day surgery center Misty Wells MD Work Phone: [facility] [place] Start: 03-14-2024 End: 03-14-2024 ambulatory Misty Wells MD Work Phone: [facility] Work Phone: Start: 02-05-2024 End: 02-05-2024 Patient encounter procedure Barak Seth Eloisa DO Work Phone: [facility] Comment on above: Encounter for screen ing for malignant neoplasm of colon Start: 02-05-2024 End: 02-05-2024 ambulatory BARAK Dorinda DOUGLAS Not Available Start: 08-17-2023 End: 08-18-2023 ambulatory Asad RAVEN Facility:[facility] Start: 08-12-2023 End: 08-12-2023 ambulatory [facility] Work Phone: Start: 08-12-2023 End: 08-12-2023 Patient encounter procedure [facility] Work Phone: Start: 07-01-2023 End: 07-01-2023 Patient encounter procedure [facility] Work Phone: Start: 06-01-2023 End: 06-01-2023 ambulatory Bruce Pollard Other [facility] Other Start: 06-01-2023 Postop follow up vis it related to original px Bruce Pollard [facility] Start: 05-21-2023 Non-patient / Non-visit MD Quinn Wells Work Phone: [facility] Work Phone: Start: 05-13-2023 End: 05-13-2023 ambulatory MD Misty Wells Work Phone: [facility] Work Phone: Start: 05-13-2023 End: 05-13-2023 Patient encounter procedure MD Misty Wells Work Phone: [facility] Work Phone: Start: 05-11-2023 End: 05-11-2023 ambulatory Bruce Pollard Other [facility] Other Start: 05-11-2023 Encounter for other preprocedural examination Bruce Pollard [facility] Start: 05-11-2023 Office outpatient vi sit 25 minutes Bruce Pollard [facility] Start: 04-06-2023 End: 04-06-2023 ambulatory Montse Rosario Other [facility] Other Start: 04-06-2023 Office outpatient vi sit 15 minutes Montse Rosario [facility] Start: 03-02-2023 End: 03-02-2023 ambulatory Bruce Pollard Other [facility] Other Start: 03-02-2023 Office outpatient vi sit 25 minutes Bruce Pollard [facility] Start: 02-26-2023 End: 02-26-2023 ambulatory MD Misty Wells Work Phone: [facility] Work Phone: Start: 02-26-2023 End: 02-26-2023 Patient encounter procedure MD Misty Wells Work Phone: [facility] [place] Work Phone: Start: 02-23-2023 Office outpatient ne w 45 minutes Bruce Pollard [facility] Start: 02-23-2023 End: 02-23-2023 ambulatory MD Misty Wells Work Phone: [employer] Other Start: 02-23-2023 End: 02-23-2023 Patient encounter procedure MD Misty Wells Work Phone: [facility] Start: 10-31-2022 End: 11-01-2022 ambulatory Aranza BASILIO Facility:[facility] Start: 10-13-2021 End: 10-14-2021 Evaluation and management of inpatient DR IGNACIO LAGUNAS Facility:[facility] Start: 04-11-2021 End: 04-11-[address] MISTY WELLS Facility:[facility] Start: 04-09-2021 End: 04-09-[address] MISTY WELLS Facility: Procedures Date Procedure Procedure Detail Performing Clinician [...] ant neoplasm of colon [facility] Start: 12-13-2024 Bacteria identified in Urine by Culture Urine Culture [facility] Start: 12-13-2024 Urine culture [facility] Start: 04-05-2024 End: 04-05-2024 Patient encounter procedure 04/05/2024 9:30 AM EST Office Visit [facility] [address] [place] [address] [phone] Barak Douglas, DO [address] [place] [address] [facility] Start: 03-14-2024 End: 03-14-2024 Patient encounter procedure 03/14/2024 11:30 AM EST Procedure Visit [facility] Barak Douglas DO [address] [place] [address] [facility] Start: 03-14-2024 End: 03-14-2024 [facility] Start: 01-03-2024 Influenza vaccination Influenza Vacc ine (#1) [facility] Start: 05-21-2023 [facility] Start: 05-21-2023 [facility] Start: 1970 Screening for malign ant neoplasm of colon [facility] Patient Education Know your Meds [facility] Work Phone: Patient referral [facility] Work Phone: Immunizations Immunization Date Immunization Notes Care Provider Teresita mccullough 08-14-2020 COVID-19 mRNATateirtorsten (Pfizer) MD Misty Wells Work Phone: [facility] 07-23-2020 COVID-19 mRNATateirtorsten (Pfizer) MD Misty Wells Work Phone: [facility] Payers Date Payer Category Payer Self-pay 2023 Private Health Insurance [employer] [id number] 2023 Unknown [id number] 1971 Unknown [id number] 1971 Unknown [id number] 1971 Unknown [id number] 1971 Unknown [id number] 1971 Unknown [id number] 1959 Unknown [id number] Unknown [employer] [id number] Unknown [id number] Unknown [id number] Social History Date Type Detail Facility Start: 02-05-2024 End: 04-05-2024 Sex Assigned At [facility] [employer] Other Start: 1970 Sex Assigned At Male [facility] Start: 05-13-2023 End: 03-14-2024 Tobacco smoking status MIIS Never smoked tobacco (finding) [facility] Start: 02-05-2024 [facility] History of [...] [facility] Start: 03-14-2024 Sex Male (finding) [facility] Goals Date Patient Goal Desired Activity /State Clinical Notes 02-23-2023 to 04-05-2024 Barak Douglas, DO - 04/05/2024 9:30 AM Avani Douglas, DO - 02/05/2024 11:45 AM EDT Note [...] follow-ups on file. documented in this encounter [facility] 02-05-2024 History of Presen t illness Narrative Images from the original note were not included. Johnathon Ludwig 1970 Johnathon Ludwig is a 53 y.o. male presents with chief complaint of Consult (Screening coloscopy /Prev '12 patient) HPI: HPI I did patient's colonoscopy [...] Past Surgical History: Procedure Laterality Date COLONOSCOPY 2011 FRACTURE SURGERY 06/1999 REVIEW OF SYMPTOMS: Review [...] of liver damage documented in this encounter [facility] 06-01-2023 Evaluation note Encounter Date Diagnosis Assessment [...] back in about 4 weeks for recheck [facility] Other 01-08-2024 Evaluation note* Encounter Date Diagnosis [...] poor healing. 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 I have [...] M25.562) May, Preop examination (ICD-10 - Z01.818) [facility] Other 12-04-2023 Evaluation note* Encounter Date Diagnosis [...] continue with the treatment plan per Dr. Pollard, who initiated this treatment plan. Dr. Gomez is present in the office today and providing supervision. [facility] Other 10-30-2023 Evaluation note* Encounter Date Diagnosis [...] pain of left knee (ICD-10 - M25.562) [facility] Other 10-23-2023 Evaluation note* Encounter Date Diagnosis [...] completed. 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 [facility] Other Evaluation noteNo assessment information available [facility] Work Phone: Evaluation note* Diagnosis Onset Date Resolution Status Other specified postprocedural states acute Tear of medial meniscus of left knee acute Other specified postprocedural states acute Tear of medial meniscus of left knee acute [facility] Work Phone: Evaluation note* Diagnosis Encounter for screening for malignant neoplasm of colon documented in this encounter [facility] HealthcareEvaluation note* Diagnosis Encounter for screening for malignant neoplasm of colon- Primary documented in this encounter [facility] HealthcareHistory general Narrative - Reported* Type Description Date Medical History hypertensive heart disease Medical History Gout Medical History hypercholesterolemia Surgical History ORIF R ANKLE 2001 Hospitalization History VERTIGO 2021 [facility] Other Hospital Discharge instructions Additional Instructions Orthopedic [...] prescribed. You may take Tylenol or ibuprofen [id number] as instructed. You should take aspirin 81 mg twice daily for 3 weeks for DVT prophylaxis. If you have any increasing pain, fever chills, or abnormal drainage or surgical wound problems you should call the office. Your follow-up should be scheduled with Dr. Pollard's office at [facility]. Please call to confirm your follow-up appointment. Dr. Bruce Pollard [facility] [address] [place], [place] [address] [phone] Work Phone: Reason for referral (narrative)No reason for referral information [facility] Work Phone: Summary Purpose Family History No [...] Admit Date Screening March 14, 2024 9:28am Chief Complaint Admit Date Unknown December 13, 2024 6: 45am Additional Source Comments (unrecognized sect ion and content) No Status Records FoundNo Status Records FoundNo Status Records FoundNo Status Records Found INFORMATION SOURCE (unrecogn ized section and content) DATE CREATED AUTHOR 02/02/2022 [facility] DATE CREATED AUTHOR AUTHOR'S ORGANIZ ATION 08/18/2023 [facility] DATE CREATED AUTHOR AUTHOR'S ORGANIZ ATION 04/06/2024 [facility] EPIC DATE CREATED AUTHOR AUTHOR'S ORGANIZ ATION 12/15/2024 [facility] REASON FOR VISIT (unrecogniz ed section and content) Reason Comments Consult Screening coloscopy Prev '12 patient Specialty Diagnoses / Procedures Referred By Contac t Referred To Contact General Surgery Diagnoses Encounter for screening for malignant neoplasm of colon Procedures [place] OFFICE/OUTPATIENT NEW HIGH MDM 60 MINUTES Misty Wells MD [address] [place] [address] [facility] [address] [facility] [address] [place] [address] Referral ID Status Reason Start Date Expiration Date V isits Requested Visits Authorized [id number] Closed Specialty Services Required 01/07/2024 07/05/2024 1 1 Reason Comments 1st pow colonoscopy Care Teams (unrecognized sec tion [...] Provider Active Start: May 21, 2023 Bruce Pollard DO Attending Provider, Other Provider Active Start: May 21, 2023 Team Status: Inactive Member Role Status Asad Wells MD Primary Care Provider Active Start: July 01, 2023 End: July 01, 2023 Bruce Pollard DO Attending Provider Active S tart: July 01, 2023 End: July 01, 2023 Team Status: Inactive Member Role Status Asad Wells MD Primary Care Provider Active Start: August 12, 2023 End: August 12, 2023 Bruce Pollard DO Attending Provider Active S tart: August 12, 2023 End: August 12, 2023 Team Status: Inactive Member Role Status Asad Wells MD Primary Care Provider Active Bruce Pollard DO Attending Provider Active Team Status: Inactive Member Role Status Dates Misty Wells MD Primary Care Provider Active Start: February 23, 2023 End: February 23, 2023 Bruce Pollard DO Attending Provider Active S tart: February 23, 2023 End: February 23, 2023 Team Status: Inactive Member Role Status Dates Misty Wells MD Primary Care Provider Active Start: February 26, 2023 End: February 26, 2023 Bruce Pollard DO Attending Provider Active S tart: February 26, 2023 End: February 26, 2023 Team Status: Inactive Member Role Status Dates Misty Wells MD Primary Care Provider Active Start: May 13, 2023 End: May 13, 2023 Bruce Pollard DO Attending Provider Active S tart: May 13, 2023 End: May 13, 2023 Quality Compliance Consultant Relationship Specialty [place] [address] [place] [phone] PCP - General Family Medicine 01/07/24 Quality Compliance Consultant Relationship Specialty Start Date End Date Misty Wells MD [address] [place] [address] PCP - General Family Medicine 01/07/24 Team Status: Inactive Member Role Status Dates Misty Wells MD Primary Care Provider Active Start: December 13, 2024 End: December 13, 2024 Misty Wells MD Attending Provider Active Sta rt: December 13, 2024 End: December 13, 2024 Goals (unrecognized section and content) Goals may [...] BE BASED ON THE PRIMARY CLINICAL RECORDS. [facility]. provides no warranty or guarantee of the accuracy or completeness of information in this document.
[2024-12-15 15:14] LABS: Hematocrit 28.1 % (42.0-54.0); Hemoglobin 9.6 g/dL (14.0-18.0); Immature Granulocytes Abs Auto 0.02 10^3/uL (0.00-0.03); Immature Granulocytes Pct Auto 0.3 % (0.0-0.5); Lymphocytes Absolute Auto 1.9 10^3/uL (1.2-3.8); Mean Corpuscular HGB Conc 34.2 g/dL (29.9-35.2); Mean Corpuscular Hemoglobin 31.7 pg (25.9-34.0); Mean Corpuscular Volume 92.7 fL (80.0-94.0); Platelet Count 292 10^3/uL (150-450); Red Blood Count 3.03 10^6/uL (4.70-6.10); White Blood Count 7.2 10^3/uL (4.0-11.0)
== END 2024-12-15 14:20 | disposition home or self-care (01) ==
LOC: LAB 14:20
PROVIDERS: PCP Family Medicine; Visit Provider Family Medicine
DX: D64.9 Anemia, unspecified (principal)
CPT/HCPCS: 36415; 85025